=== PATIENT | female | born 1990 | race Caucasian/White ===

== ENCOUNTER 2021-05-18 12:29 | Inpatient (IN) | payer MEDICARE, MEDICAID, SELFPAY ==
[2021-05-18 12:53] VITALS: BP 170/91; BP 178/72; PULSE 110; PULSE 68; RESP 26; TEMP 36.6; O2SAT 98; BMI 23.8
--- NOTE | 2021-05-18 13:04 | ED.PSYCH ---
HPI - Psych General Chief Complaint: Psychiatric Symptoms <Cathy Villagomez NP - Last Filed: 05/18/21 20:21> Stated Complaint: CRISIS,SECTION 12 <Cathy Villagomez NP - Last Filed: 05/18/21 20:21> Time Seen by Provider: 05/18/21 12:37 <Cathy Villagomez NP - Last Filed: 05/18/21 20:21> Source: EMS <Cathy Villagomez NP - Last Filed: 05/18/21 20:21> Mode of arrival: EMS <Cathy Villagomez NP - Last Filed: 05/18/21 20:21> Limitations: no limitations <Cathy Villagomez NP - Last Filed: 05/18/21 20:21> History of Present Illness HPI Narrative: 31 yo female found wandering in [place] hyperverbal, rambling, disorganized. Mobile crisis and BHN on scene. Sent to ED on section 12 for further evaluation. Patient tells me recently discharged from detox for OUD and denies current substance use. No SI/HI. She tells me she hasn't slept since Saturday evening d/t racing thoughts. Tells me she has been taking her medications as prescribed. No physical complaints <Cathy Villagomez NP - Last Filed: 05/18/21 20:21> Related Data Home Medications: Home Medications Medication Instructions Recorded Confirmed gabapentin [Neurontin] 800 mg PO TID 05/18/21 05/18/21 hydroxyzine pamoate 1 cap PO TID PRN 05/18/21 05/18/21 nicotine 21 mg TRANSDERMAL DAILY 05/18/21 05/18/21 phenobarbital 1 tab PO BEDTIME 05/18/21 05/18/21 phenobarbital 32.4 mg PO TID 05/18/21 prazosin 1 cap PO BEDTIME 05/18/21 05/18/21 quetiapine 1 tab PO BEDTIME 05/18/21 05/18/21 quetiapine [Seroquel] 50 mg PO TID PRN 05/18/21 05/18/21 trazodone 1 tab PO BEDTIME 05/18/21 05/18/21 <Cathy Villagomez NP - Last Filed: 05/18/21 20:21> Allergies/Adverse Reactions: Allergies Allergy/AdvReac Type Severity Reaction Status Date / Time No Known Allergies Allergy Unverified 08/18/20 17:31 <Cathy Villagomez NP - Last Filed: 05/18/21 20:21> Review of Systems Review of Systems: Yes Unobtainable due to mental status (but not answering questions, rambling, hyperverbal) <Cathy Villagomez NP - Last Filed: 05/18/21 20:21> [facility] Past Medical History Attestation statement: The following information was validated with the patient. <Cathy Villagomez NP - Last Filed: 05/18/21 20:21> Source: unable to obtain <Cathy Villagomez NP - Last Filed: 05/18/21 20:21> Social History Social History: Social History Patient Tobacco Use Status: Tobacco use Unknown Use of substances other than those prescribed or required for medical reasons: Yes Substance Use Type: Heroin and IV Drugs Last Used Substance: Unknown Any prior treatment program specific to substance use: Yes Advance Directives: Yes Advance Directives Information Provided: Yes Advance Directives on File: No Patient : No (PT STATES POSSIBLE) <Cathy Villagomez NP - Last Filed: 05/18/21 20:21> Physical Exam Vital Signs: Vital Signs: Last Vital Signs Temp 96.8 F 05/19/21 00:12 Pulse 93 05/18/21 23:00 Resp 16 05/19/21 06:00 BP 140/80 H 05/18/21 23:00 Pulse Ox 100 05/18/21 22:59 Body Mass Index 23.8 <Cathy Villagomez NP - Last Filed: 05/18/21 20:21> Vital Signs: Last Vital Signs Temp 96.8 F 05/19/21 00:12 Pulse 93 05/18/21 23:00 Resp 16 05/19/21 06:00 BP 140/80 H 05/18/21 23:00 Pulse Ox 100 05/18/21 22:59 Body Mass Index 23.8 <FARZANA Roman - Last Filed: 05/19/21 08:25> Const: General: anxious <Cathy Villagomez NP - Last Filed: 05/18/21 20:21> Orientation/consciousness: patient oriented x3 <Cathy Villagomez NP - Last Filed: 05/18/21 20:21> Limitations: no limitations <Cathy Villagomez NP - Last Filed: 05/18/21 20:21> HENMT: Head: Yes normal to inspection <Cathy Villagomez NP - Last Filed: 05/18/21 20:21> Ears: hearing grossly normal bilaterally <Cathy Villagomez COMMISSIONS ANALYST - Last Filed: 05/18/21 20:21> General nose exam: Normal external nose present <Cathy Villagomez NP - Last Filed: 05/18/21 20:21> Face and sinus: Yes normal facial exam <Cathy Villagomez NP - Last Filed: 05/18/21 20:21> Mouth: Normal oral and palatal mucosa present <Cathy Villagomez NP - Last Filed: 05/18/21 20:21> Throat: Yes posterior oropharynx normal <Cathy Villagomez NP - Last Filed: 05/18/21 20:21> Eyes: General: appearance normal, both eyes and all related structures <Cathy Villagomez NP - Last Filed: 05/18/21 20:21> Pupils: Equal, round and reactive pupils present <Cathy Villagomez NP - Last Filed: 05/18/21 20:21> Neck: Neck: Yes normal visual inspection <Cathy Villagomez NP - Last Filed: 05/18/21 20:21> Chest: Chest palpation & inspection: normal inspection of the chest <Cathy Villagomez NP - Last Filed: 05/18/21 20:21> Resp: Effort & Inspection: normal respiratory effort <Cathy Villagomez NP - Last Filed: 05/18/21 20:21> Cardio: Peripheral pulses: Peripheral pulses 2+ throughout <Cathy Villagomez NP - Last Filed: 05/18/21 20:21> GI: Inspection: Yes normal to inspection <Cathy Villagomez NP - Last Filed: 05/18/21 20:21> Palpation (GI): Soft to palpation and nontender <Cathy Villagomez NP - Last Filed: 05/18/21 20:21> Auscultation: normal bowel sounds <Cathy Villagomez NP - Last Filed: 05/18/21 20:21> Back/Spine/Pelvis: Thoracic/Lumbar Spine: thoracic and lumbar spine normal to inspection <Cathy Villagomez NP - Last Filed: 05/18/21 20:21> Skin: General skin exam: no rashes or lesions noted <Cathy Villagomez NP - Last Filed: 05/18/21 20:21> Neuro: General: patient oriented x3 and moves all extremities <Cathy Villagomez NP - Last Filed: 05/18/21 20:21> Cranial nerves: Yes Equal, round and reactive pupils present <Cathy Villagomez NP - Last Filed: 05/18/21 20:21> Gait exam (Neuro): Normal gait present <Cathy Villagomez NP - Last Filed: 05/18/21 20:21> Extrem: General: Yes normal to inspection <Cathy Villagomez NP - Last Filed: 05/18/21 20:21> Psych: Other: Rambling, disorganized speech, hyperverbal <Cathy Villagomez NP - Last Filed: 05/18/21 20:21> Appearance: disheveled <Cathy Villagomez NP - Last Filed: 05/18/21 20:21> Speech and movement: Psychomotor agitation in speech present and Restless speech present <Cathy Villagomez NP - Last Filed: 05/18/21 20:21> Affect: Anxious affect present <Cathy Villagomez NP - Last Filed: 05/18/21 20:21> Attitude: Refuses to answer (attititude/behavior) <Cathy Villagomez NP - Last Filed: 05/18/21 20:21> Insight: Limited insight present (Psych) <Cathy Villagomez NP - Last Filed: 05/18/21 20:21> Judgement: Limited judgement present (Psych) <Cathy Villagomez NP - Last Filed: 05/18/21 20:21> Course Course Course Narrative: 31 yo female here after being found outside by PD rambling, hyperverbal with disorganized speech and thoughts. NO physical complaints. Has had difficulty sleeping d/t racing thoughts. No SI. Denies current substance use. +++++anxious, pacing, flight of ideas, hyperverbal. Will need labs, GUTIERREZ. Agreed to take oral ativan/haldol for anxiety/sleep. 1630-At this point patient refusing labs. Nursing will try again shortly. 1830-Spoke to care team. Plan for zully follow-up as patient unable to participate in interview and unable to obtain collateral information. Patient given additional meds to aid in sleep. 2100-Sign out to night team pending above. <Cathy Villagomez NP - Last Filed: 05/18/21 20:21> Physician observation continued. Patient not in any distress. patient will be re-evaluated by N this morning. <FARZANA Roman - Last Filed: 05/19/21 08:25> MDM - Psych Medical Records Attestation: I reviewed the patient's medical records. <Cathy Villagomez NP - Last Filed: 05/18/21 20:21> Lab Data Attestation: I reviewed the patient's lab results. <Cathy Villagomez NP - Last Filed: 05/18/21 20:21> Labs: Lab Results 05/18/21 05/18/21 05/18/21 Range/Units 13:13 13:13 14:57 Urine Test NEGATIVE (NEGATIVE) Urine Opiates Screen Not Detected (Not Detect) Ur Barbiturates Screen POSITIVE H (Not Detect) Ur Phencyclidine Scrn Not Detected (Not Detect) Ur Amphetamines Screen Not Detected (Not Detect) U Benzodiazepines Scrn Not Detected (Not Detect) Urine Cocaine Screen POSITIVE H (Not Detect) U Marijuana (THC) Screen POSITIVE H (Not Detect) COVID-19 (EMMANUEL) Negative (Negative) COVID-19 Clin Com See Note <Cathy Villagomez NP - Last Filed: 05/18/21 20:21> Lab Results 05/18/21 05/18/21 05/18/21 Range/Units 13:13 13:13 14:57 Urine Test NEGATIVE (NEGATIVE) Urine Opiates Screen Not Detected (Not Detect) Ur Barbiturates Screen POSITIVE H (Not Detect) Ur Phencyclidine Scrn Not Detected (Not Detect) Ur Amphetamines Screen Not Detected (Not Detect) U Benzodiazepines Scrn Not Detected (Not Detect) Urine Cocaine Screen POSITIVE H (Not Detect) U Marijuana (THC) Screen POSITIVE H (Not Detect) COVID-19 (EMMANUEL) Negative (Negative) COVID-19 Clin Com See Note <FARZANA Roman - Last Filed: 05/19/21 08:25> Discharge Plan Discharge Clinical Impression: Acute psychosis <Cathy Villagomez NP - Last Filed: 05/18/21 20:21> Prescriptions: No Action phenobarbital 97.2 mg tablet 1 tab PO BEDTIME RF: 0 prazosin 1 mg capsule 1 cap PO BEDTIME RF: 0 hydroxyzine pamoate 50 mg capsule 1 cap PO TID PRN (Reason: Anxiety) RF: 0 quetiapine 100 mg tablet 1 tab PO BEDTIME RF: 0 gabapentin [Neurontin] 800 mg tablet 800 mg PO TID RF: 0 trazodone 100 mg tablet 1 tab PO BEDTIME RF: 0 nicotine 21 mg/24 hr patch 24 hour 21 mg transdermal DAILY RF: 0 phenobarbital 64.8 mg tablet 32.4 mg PO TID RF: 0 quetiapine [Seroquel] 50 mg tablet 50 mg PO TID PRN (Reason: AGITATION) RF: 0 <Cathy Villagomez NP - Last Filed: 05/18/21 20:21>
[2021-05-18] MEDS: LORazepam 1 MG TABLET 2 MG PO (13:18)
[2021-05-18] MEDS: HaloperidoL 5 MG TABLET PO (13:18)
[2021-05-18 13:25] LABS: UPreg QC Valid YES; Urine Pregnancy NEGATIVE (NEGATIVE)
[2021-05-18 13:51] LABS: Amphetamine Screen Urine Not Detected (Not Detect); Barbiturates, Urine POSITIVE (Not Detect); Benzodiazepines Screen Urine Not Detected (Not Detect); Cannabinoid Screen Urine POSITIVE (Not Detect); Cocaine Screen Urine POSITIVE (Not Detect); Opiate Screen Urine Not Detected (Not Detect); Phencyclidine Screen Urine Not Detected (Not Detect)
--- NOTE | 2021-05-18 14:36 | PC.NURSE ---
PT MORE EASILY REDIRECTED AT THIS TIME. COOPERATIVE WITH BLOODDRAW. UPDATED MD GOTTI ON THIS PT. ATTEMPTING TO COMPLETE MED REC. PT STATES SHE HAS NOT PICKED UP MEDICATIONS RECENTLY, CANNOT PROVIDE NAME OF LAST PHARMACY USED. STATES SHE WAS TAKING MEDICATIONS AT [facility] REFERRAL COMPLETED.
--- NOTE | 2021-05-18 15:12 | PC.NURSE ---
PT DIFFICULT STICK. PT BECAME AGGRAVATED WITH MHA. WILL REATTEMPT AT A LATER TIME.
--- NOTE | 2021-05-18 15:27 | PC.NURSE ---
CHILO [phone] NUMBER GIVEN BY PT
[2021-05-18 15:28] LABS: COVID-19 Test Negative (Negative)
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
--- NOTE | 2021-05-18 16:00 | PC.NURSE ---
PT C/O RESTLESS LEGS FROM PO HALDOL. MANAGER ESTATE MADE AWARE, ORDER IN FOR BENADRYL. PT OBSERVED TO BE RESTLESS IN BED.
[2021-05-18] MEDS: diphenhydrAMINE HCL 25 MG TABLET 50 MG PO (16:11)
--- NOTE | 2021-05-18 16:20 | PC.NURSE ---
BIANCA SPOKE WITH PTS SISTER DWIGHT [phone], NO NEW INFORMATION OBTAINED FROM HER. PT SEEN AT [facility] ED AND DC'D ON 05/15 FOR SEIZURE R/T USE OF CRACK TONY. BLANCON TO COMPLETE AN EMERGENCY SERVICES FUP TOMORROW, NO DISPOSITION AT THIS TIME.
--- NOTE | 2021-05-18 17:18 | PC.NURSE ---
BIANCA MADE CONTACT WITH BOYFRIENKuldeep WOO. HE CONFIRMED PHARMACY USED IS [facility] [phone] . SHE WAS RECENTLY AT [facility] DETOX [phone], LEFT ON 05/15. PER BIANCA, PT NOW INPT BEDSEARCH. DYSTONIC MOVEMENT SOMEWHAT CALMED SINCE BENDRYL ADMIN, PT REMAINS FRUSTRATED & DEMANDING.
[2021-05-18] MEDS: OLANZapine 10 MG TABLET PO (18:13)
[2021-05-18 18:25] VITALS: RESP 18
--- NOTE | 2021-05-18 21:54 | HE.PHANOTE ---
Pharmacy Consult ? Medication Reconciliation Pharmacy has completed the medication reconciliation , unable to confirm phenobarb dose, am pharmacist will confirm Yelena Nuno PharmD
[2021-05-18] MEDS: Melatonin 3 MG TABLET 6 MG PO (22:44)
[2021-05-18] MEDS: hydrOXYzine HCL 50 MG TABLET PO (22:44)
[2021-05-18] MEDS: QUEtiapine Fumarate 50 MG TABLET 150 MG PO (22:45)
--- NOTE | 2021-05-18 22:48 | PC.NURSE ---
pt was screaming out foul lang to staff, throwing her water pitcher out of her room, pt seeking her medications. pharmacy was entering her medications and provider made aware and stat po meds given. pt pleased, door closed, light turned down to off. evening snack given. pt more cooperative at this time and took her meds with no difficulty.
[2021-05-18] MEDS: Gabapentin 400 MG CAPSULE 800 MG PO (22:56)
[2021-05-18] MEDS: traZODone HCL 100 MG TABLET PO (22:56)
[2021-05-18 22:59] VITALS: BP 140/80; PULSE 93; RESP 18; O2SAT 100
[2021-05-18 23:00] VITALS: BP 140/80; PULSE 93
[2021-05-19] VITALS (10 sets, daily range): BP systolic 116–135; BP diastolic 65–74; PULSE 80–95; RESP 16–18; TEMP 36–37.1
--- NOTE | 2021-05-19 | ECG_ITS ---
Test Reason : MEDICAL CLEARANCE Blood Pressure : / mmHG Vent. Rate : 084 BPM Atrial Rate : 084 BPM P-R Int : 136 ms QRS Dur : 084 ms QT Int : 360 ms P-R-T Axes : 077 067 046 degrees QTc Int : 425 ms Normal sinus rhythm with sinus arrhythmia Normal ECG When compared with ECG of 15-JUN-2013 22:46, No significant change was found Referred By: Norman Hernández Electronically Signed By:HEIDY FONTANA
[2021-05-19] MEDS: LORazepam 2 MG/ML VIAL IM (00:10)
[2021-05-19] MEDS: OLANZapine 10 MG VIAL IM (00:10)
--- NOTE | 2021-05-19 00:30 | PC.NURSE ---
05/18/212229 pt anxiouse, shouting out for more medications to help her to sleep. pt medication list completed and provider made aware and medications ordered and given at pt request. pt has been given multiple sandwhichs, peanut butter and crackers and water. warm milk offered and refused. pt given a warm blanket to help her to fall asleep, pt state she has not slept in days. plan is to have bhn follow up in the morning. pt has been made aware of this.
--- NOTE | 2021-05-19 00:34 | PC.NURSE ---
pt is tossing and turning in the bed having a difficult time falling asleep, pt visable on the monitor, pt appears to be having withdrawls from cocaine. pt states she only used one time after coming out of rehab on saturday, pt states she used on saturday only. pt's leg very restless and pt is turning in bed very frequently.
--- NOTE | 2021-05-19 00:51 | PC.NURSE ---
pt undressed and refusing to wear her hospital gown at this time. pt instructed to keep her gown on and pt layed down under her blanket. pt is fighting the ability to sleep, pt getting drowsy then abruptly wide awake shaking her legs.
--- NOTE | 2021-05-19 01:01 | PC.NURSE ---
pt offered the floor mat and accepted. pt is unable to sleep in the bed due to restless legs. pt having visual halluncinations, pointing to things not in the room and grabbing at the air. pillow wedge given to help with the legs while on the floor mat.
--- NOTE | 2021-05-19 02:47 | PC.NURSE ---
pt legs are quieting down and pt has fallen asleep at this time.
--- NOTE | 2021-05-19 04:44 | PC.NURSE ---
weighted blanket placed on pt. pt has increase in periods of sleeping and her legs have decreased restlessness.
--- NOTE | 2021-05-19 07:02 | PC.NURSE ---
pateitn appears to rest with even unlabord breaths, patientnappears in no distress at present
[2021-05-19] MEDS: LORazepam 1 MG TABLET PO (15:58)
[2021-05-19] MEDS: Prazosin HCL 1 MG CAPSULE PO (20:14)
[2021-05-19] MEDS: PHENobarbitaL 30 MG TABLET 60 MG PO (20:15)
[2021-05-19] MEDS: QUEtiapine Fumarate 100 MG TABLET PO (20:21)
[2021-05-19] MEDS: traZODone HCL 100 MG TABLET PO (20:21)
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
--- NOTE | 2021-05-20 07:42 | PC.NURSE ---
pt signed 3 day notice on 05/19/21. up on weed 05/24/21
[2021-05-20] MEDS: LORazepam 1 MG TABLET PO ×3 (09:01→17:24)
--- NOTE | 2021-05-20 10:09 | HO.PSYADMNOT ---
HPI Chief Complaint: psychosis Sources of Information: patient interviewed, chart reviewed and crisis/core team assessment reviewed Additional Sources of Information: nursing reports HPI Subjective Notes: Conditional Voluntary and 3 Day Healthcare Proxy: No Guardianship: No Medical Problems Affecting Mental Status: No Narrative: Pt wanting to leave, just got out of [facility] in [place]- doesn't even know why she is here- says people rated her out After dc from [facility] she went and used for 4 days- says she filled her dc medications and the people might have them denies hx of Suicide attempts Past Psychiatric History: hx substance abuse- recent use was crack cocaine as that was what they had [facility] for psych admit dced 05/15/21 Medical Evaluation Reviewed: Yes agitated psychosis on presentation to [facility] Narrative: Hx Epilepsy on phenobarb being tapered back up to dose of 90? Narrative: REports She does have outpatient care in [place] dr Christian thru [facility] Family History: pt unwilling to engage in this Social History: living with one boyfriend or another, kalpana Baker, prior to that [place] Norbert Quan [phone]- would like to go back there- Her mother has custody of her children Substance History: hx of opiates in past, cocaine, Trauma History: not reviewed today pt was minimally engaged wanting to just talk about leaving Diagnostics Vital Signs (24Hr): Vital Signs - 24 hr 05/19/21 16:10 05/19/21 19:50 05/19/21 20:14 Temperature 98.7 F 98 F Pulse Rate 80 95 95 Blood Pressure 135/74 116/65 116/65 Body Mass Index 23.8 Labs Labs: Laboratory Results - last 48 hr 05/18/21 05/18/21 05/18/21 13:13 13:13 14:57 Urine Test NEGATIVE Urine Opiates Screen Not Detected Ur Barbiturates Screen POSITIVE H Ur Phencyclidine Scrn Not Detected Ur Amphetamines Screen Not Detected U Benzodiazepines Scrn Not Detected Urine Cocaine Screen POSITIVE H U Marijuana (THC) Screen POSITIVE H COVID-19 (EMMANUEL) Negative COVID-19 Clin Com See Note Meds/Allergies Meds Home Medications Acetaminophen (Acetaminophen 325 Mg Tablet) 650 mg PO Q6H PRN PRN Reason: Headache/Pain Mild Scale (1-3) Al Hydroxide/Mg Hydroxide (Magnesium Hydrox/Alum Hydrox 30 Ml Oral.Susp) 30 ml PO Q6H PRN PRN Reason: Heartburn/Nausea Gabapentin (Gabapentin 400 Mg Capsule) 400 mg PO TID MURRAY Hydrocortisone (Hydrocortisone 1 % Cream 28.35 Gm Tube) 1 appl TOPICAL BID PRN; Protocol PRN Reason: itching Hydroxyzine HCl (Hydroxyzine Hcl 50 Mg Tablet) 50 mg PO TID PRN PRN Reason: Anxiety Magnesium Hydroxide (Milk Of Magnesia 30 Ml Oral.Susp) 30 ml PO DAILY PRN PRN Reason: Constipation Nicotine (Nicotine 21 Mg Patch.Td24) 21 mg TRANSDERMA DAILY MURRAY Last Admin: 05/20/21 13:50 Dose: 21 mg Documented by: Phenobarbital (Phenobarbital 30 Mg Tablet) 60 mg PO BEDTIME MURRAY Stop: 05/26/21 09:00 Last Admin: 05/19/21 20:15 Dose: 60 mg Documented by: Prazosin HCl (Prazosin Hcl 1 Mg Capsule) 1 mg PO BEDTIME MURRAY; Protocol Last Admin: 05/19/21 20:14 Dose: 1 mg Documented by: Quetiapine Fumarate (Quetiapine Fumarate 50 Mg Tablet) 50 mg PO TID PRN PRN Reason: AGITATION Last Admin: 05/20/21 13:49 Dose: 50 mg Documented by: Quetiapine Fumarate (Quetiapine Fumarate 100 Mg Tablet) 100 mg PO BEDTIME MURRAY Trazodone HCl (Trazodone Hcl 100 Mg Tablet) 100 mg PO BEDTIME PRN PRN Reason: insomnia Last Admin: 05/19/21 20:21 Dose: 100 mg Documented by: Allergies Allergies Allergy/AdvReac Type Severity Reaction Status Date / Time No Known Allergies Allergy Unverified 08/18/20 17:31 Mental Status Exam Mental Status Exam Narrative: Annoyed and irritated , restless Patient Appearance: Appropriate Patient Orientation: Person, Place and Situation Level of Consciousness: Awake and Restless Patient Behavior: Talkative and Resistive to Care Mood Description: Suspicious and Angry Affect Description: Labile Patient Cognition Impaired: No Ability to Follow Directions: Fair Speech Pattern: Clear Hallucinations: None Thought Process: Distracted Thought Content: positive for Racing and positive for Disorganized Depressive Symptoms: Insomnia and Increased Irritability Abnormal Motor Activity Signs and Symptoms: Hyperactivity Judgement: Poor Assessment & Plan Patient educated on: medication risk/benefits and substance abuse Informed Consent: further education needed Reason for continued inpatient stay Substantial Risk for: inability to function and rapid decompensation
[2021-05-20] MEDS: Gabapentin 400 MG CAPSULE 800 MG PO (13:49)
[2021-05-20] MEDS: QUEtiapine Fumarate 50 MG TABLET PO (13:49)
[2021-05-20] MEDS: Nicotine 21 MG PATCH.TD24 TRANSDERMA (13:50)
[2021-05-20 18:00] VITALS: BP 150/80; PULSE 99
[2021-05-20 18:30] VITALS: BP 143/82; PULSE 118; RESP 14
--- NOTE | 2021-05-20 19:03 | PC.NURSE ---
At approximately 0630 this marketing copywriter was called to the pt kitchen as pt was thought to be vomiting in the sink. This marketing copywriter noted pt to appear overly sedated and when questioned if her recent visitor had given her something, pt replied, yes, he gave ma a little strip of Suboxone, that's all . Pt's V/S'S 143/82, HR 118 and SAT's 95%. Pt assisted to her room, staff remained with her and this marketing copywriter spoke with MD podiatric surgeon Dr Fadumo Parks to inform her of incident.
[2021-05-20 20:56] VITALS: BP 138/71; PULSE 110
[2021-05-20] MEDS: Prazosin HCL 1 MG CAPSULE PO (20:56)
[2021-05-20] MEDS: QUEtiapine Fumarate 100 MG TABLET PO (20:58)
[2021-05-20] MEDS: PHENobarbitaL 30 MG TABLET 60 MG PO (21:14)
--- NOTE | 2021-05-21 00:01 | PC.NURSE ---
Patient was noted to be sedated around 1830 and was starting to nod off in the kitchen. She suddenly got up and went to the kitchen sink area and started gagging a bit. Patient c/o nausea and fatigue. Vital signs were taken and were within normal limits. Another nurse found out the patient had been given a small amount of Suboxone by her ex-boyfriend who came to visit. Dr. Rutherford was notified and patient was monitored for 2 hours. She was crying and yelling that she was being treated unfairly because she was not allowed to eat or drink until it was clear that she was not a choking risk. Patient was allowed to eat some pudding after one hour and was able to tolerate. She was then allowed to eat her dinner. No choking noted. Patient still reported I'm tired but I want to take a shower. Patient was able to shower and put on clean clothes. She took her HS meds. Dr. Rutherford wanted Trazadone held, both the scheduled and prn. Patient asleep at shift change. Stable. She apologized for her outburst.
[2021-05-21] MEDS: QUEtiapine Fumarate 50 MG TABLET PO (01:49)
--- NOTE | 2021-05-21 10:50 | PM.PSYDC ---
DS: Providers Provider Date of Service: 05/21/21 Date of admission: 05/19/21 14:11 Primary care physician: Unknown Physician DS: Diagnosis Discharge Diagnosis (1) Cocaine abuse with cocaine-induced psychotic disorder: Status: Acute Problem details: also hx seizures s/p dc [facility] started using crack x 4 days presented psychotic to er from this came down- was irritable but not psychotic- then had bf bring her suboxone on unit- which she used denies opiate addiction just addict DS: Medications Discharge Medications Home Medications: Home Medications Medication Instructions Recorded Confirmed gabapentin [Neurontin] 800 mg PO TID 05/18/21 05/18/21 hydroxyzine pamoate 1 cap PO TID PRN 05/18/21 05/18/21 nicotine 21 mg TRANSDERMAL DAILY 05/18/21 05/18/21 phenobarbital 1 tab PO BEDTIME 05/18/21 05/18/21 phenobarbital 64.8 mg PO BEDTIME 05/18/21 05/19/21 prazosin 1 cap PO BEDTIME 05/18/21 05/18/21 quetiapine 1 tab PO BEDTIME 05/18/21 05/18/21 quetiapine [Seroquel] 50 mg PO TID PRN 05/18/21 05/18/21 trazodone 1 tab PO BEDTIME 05/18/21 05/18/21 pt was not given medications has she says she has them from [facility] and she can get them from her friend Discharge Plan Discharge Anticipated Discharge Date/Time: 05/21/21 11:00 Patient Disposition: Home, Self-Care Discharge Diagnosis: cocaine induced psychosis Referrals: Physician,Unknown [Primary Care Provider] - 1 Week Discharge Medications: Continued phenobarbital 97.2 mg tablet 1 tab PO BEDTIME RF: 0 prazosin 1 mg capsule 1 cap PO BEDTIME RF: 0 hydroxyzine pamoate 50 mg capsule 1 cap PO TID PRN (Reason: Anxiety) RF: 0 quetiapine 100 mg tablet 1 tab PO BEDTIME RF: 0 gabapentin [Neurontin] 800 mg tablet 800 mg PO TID RF: 0 trazodone 100 mg tablet 1 tab PO BEDTIME RF: 0 nicotine 21 mg/24 hr patch 24 hour 21 mg transdermal DAILY RF: 0 phenobarbital 64.8 mg tablet 64.8 mg PO BEDTIME RF: 0 quetiapine [Seroquel] 50 mg tablet 50 mg PO TID PRN (Reason: AGITATION) RF: 0 Discharge Orders: Discharge Order (Routine); Ordered 05/21/21 Ordered By: Adali Parks Diet: regular diet Activity on Discharge: As tolerated Stand Alone Forms: Patient Portal Discharge page, Community Support Care Plan Goals: return to providers she says she has Health Concerns: continued risk of drug use, stongly urge detox or CSS setting not psych Plan of Treatment: recommend [facility] Assessment: Pt was non compliant with treatment, had bf bring in suboxone she used on unit - pt was monitored for safety over night- refusing meds today Patient Instructions: Cocaine Abuse (DC) Discharge Date/Time: 05/21/21 11:00 Mental Status Exam Mental Status Exam Patient Appearance: Appropriate Patient Orientation: Person, Place, Time and Situation Level of Consciousness: Awake Patient Behavior: Hyperactive and Good Eye Contact Mood Description: Anxious (to be dced) Affect Description: Calm (happy to be dced) Patient Cognition Impaired: No Ability to Follow Directions: Fair Speech Pattern: Clear Hallucinations: None Delusions: Not Present Thought Process: Intact Thought Content: positive for Intact and positive for Perseveration (for dc) Judgement: Fair Data Data Completed and Pending Completed studies during hospitalization [Text1]: 05/18/21 05/18/21 05/18/21 13:13 13:13 14:57 Urine Test NEGATIVE Urine Opiates Screen Not Detected Ur Barbiturates Screen POSITIVE H Ur Phencyclidine Scrn Not Detected Ur Amphetamines Screen Not Detected U Benzodiazepines Scrn Not Detected Urine Cocaine Screen POSITIVE H U Marijuana (THC) Screen POSITIVE H COVID-19 ([facility]) Negative COVID-19 Clin Com See Note DS: Summary Time Spent with Patient Time attestation: Total time spent providing and/or coordinating discharge services: 30 minutes
== END 2021-05-21 11:00 | disposition home or self-care (01) | DRG 897 ==
LOC: HO.ED 15:01 → HO.PM5 05-19 14:15
PROVIDERS: Nurse Practitioner Family; Admitting Provider Psychiatry & Neurology Psychiatry; Emergency Provider Emergency Medicine; Visit Provider Psychiatry & Neurology Psychiatry
DX: F14.159 Cocaine abuse with cocaine-induced psychotic disorder, unspecified (principal); Z20.822 Contact with and (suspected) exposure to COVID-19; G40.909 Epilepsy, unspecified, not intractable, without status epilepticus; F17.210 Nicotine dependence, cigarettes, uncomplicated; Z71.6 Tobacco abuse counseling; Z79.899 Other long term (current) drug therapy
CPT/HCPCS: 36415; 80307; 81025; 87635; 93005; 99285; J2060; Q0163

== ENCOUNTER 2022-03-26 16:49 | Emergency (ER) | payer MEDICARE, MEDICAID, SELFPAY ==
[2022-03-26 16:53] VITALS: BP 151/91; PULSE 120; RESP 19; TEMP 38; O2SAT 98; BMI 30.7
== END 2022-03-26 18:06 | disposition left against medical advice (07) ==
LOC: HO.ED 17:51
PROVIDERS: Emergency Provider Emergency Medicine
DX: B37.0 Candidal stomatitis (principal)
CPT/HCPCS: 99281; 99282

== ENCOUNTER 2022-04-22 16:20 | Emergency (ER) | payer MEDICARE, MEDICAID, SELFPAY ==
--- NOTE | 2022-04-22 16:27 | ED.SEIZURE ---
HPI - Seizure General Chief Complaint: Seizure Stated Complaint: ? seizure Time Seen by Provider: 04/22/22 16:27 Source: patient Mode of arrival: EMS Limitations: no limitations History of Present Illness HPI Narrative: Patient history of seizures anxiety cocaine abuse and cocaine induced psychotic disorder ran out of her medications about 3 weeks ago and having seizures almost every week today prior to arrival she had a similar episode seizures witnessed by her boyfriend lasted for few minutes feeling sleepy and was postictal. No injuries no time was Related Data Home Medications Medication Instructions Recorded Confirmed gabapentin 800 mg tablet 800 mg PO TID 05/18/21 05/18/21 (Neurontin) hydroxyzine pamoate 50 mg capsule 1 cap PO TID PRN 05/18/21 05/18/21 nicotine 21 mg/24 hr daily 21 mg TRANSDERMAL DAILY 05/18/21 05/18/21 transdermal patch phenobarbital 64.8 mg tablet 64.8 mg PO BEDTIME 05/18/21 05/19/21 phenobarbital 97.2 mg tablet 1 tab PO BEDTIME 05/18/21 05/18/21 prazosin 1 mg capsule 1 cap PO BEDTIME 05/18/21 05/18/21 quetiapine 100 mg tablet 1 tab PO BEDTIME 05/18/21 05/18/21 quetiapine 50 mg tablet (Seroquel) 50 mg PO TID PRN 05/18/21 05/18/21 trazodone 100 mg tablet 1 tab PO BEDTIME 05/18/21 05/18/21 Previous Rx's Medication Instructions Recorded gabapentin 800 mg tablet 800 mg PO TID #90 tab 04/22/22 phenobarbital 97.2 mg tablet 97.2 mg PO BEDTIME #30 tab 04/22/22 prazosin 1 mg capsule 1 mg PO BEDTIME #30 cap 04/22/22 quetiapine 100 mg tablet (Seroquel) 100 mg PO BEDTIME #30 tab 04/22/22 quetiapine 50 mg tablet (Seroquel) 50 mg PO TID PRN #90 tab 04/22/22 trazodone 100 mg tablet 100 mg PO BEDTIME #30 tab 04/22/22 Allergies Allergy/AdvReac Type Severity Reaction Status Date / Time No Known Allergies Allergy Verified 04/22/22 16:29 Review of Systems Review of Systems: Yes all other systems are reviewed and are negative PMFSH Past Medical History Medical History Drug abuse Seizure Social History Social History Household Members: None Housing: Other Housing Other:: presently homeless Do you presently have visiting nurse or other home services: No Patient Tobacco Use Status: Current everyday Tobacco user Tobacco use type: Cigarette Cigarette Packs Per Day: 0.5 Cigarettes Per Day: 10.0 Years Smoked: 15 Second Hand Smoke Exposure: Yes Use of substances other than those prescribed or required for medical reasons: Yes Substance Use Type: Heroin and IV Drugs Substance Use Frequency: Daily Last Used Substance: Hours (ago) Advance Directives: No Advance Directives Information Provided: Yes service: No Sexual orientation: Decline to Answer Physical Exam Vital Signs: Vital Signs: Last Vital Signs Temp 98.7 F 04/22/22 16:29 Pulse 72 04/22/22 16:29 Resp 16 04/22/22 16:29 BP 101/56 L 04/22/22 16:29 Pulse Ox 100 04/22/22 16:29 BMI result Body Mass Index 31.1 Appearance: Alert. Oriented X3. No acute distress. Eyes: PERRLA, No Nystagmus ENT: Pharynx normal. Oral Mucosa moist no tongue bite Neck: Normal inspection. Neck supple. CVS: Normal heart rate and rhythm. Pulses normal. Respiratory: No respiratory distress. Equal air entry bilateral, no wheezing/rales/rhonchi Abdomen: Soft and nontender. Bowel sounds are present, no mass palpable, no CVA tenderness Skin: Skin warm and dry. Normal skin color. Normal skin turgor. Extremities: No lower extremity edema. No calf tenderness IVDA track armenta++ Neuro: Oriented X 3. No motor deficit. No sensory deficit.No cerebellar signs , cranial nerves II-XII intact MDM - Seizure MDM Narrative Medical decision making narrative: Patient history of epilepsy in substance abuse missed her medications for last few weeks having seizures patient medication were refilled and phenobarbital was given in the ER Lab Data Attestation: I reviewed the patient's lab results. Result diagrams: 04/22/22 17:53 04/22/22 17:53 Labs: Lab Results 04/22/22 04/22/22 Range/Units 17:53 17:53 WBC 6.2 (4.8-10.8) X10*3/uL RBC 4.82 (4.20-5.50) X10*6/uL Hgb 13.0 (12.0-16.0) g/dl Hct 40.4 (37.0-47.0) % MCV 83.8 (80.0-98.0) fL MCH 27.0 (27.0-33.0) pg MCHC 32.2 (31.0-35.0) g/dl RDW 13.7 (11.0-16.0) % Plt Count 241 (160-400) X10*3/uL MPV 10.2 (9.4-12.3) fL Immature Gran % (Auto) 0.2 (0.0-0.4) % Neut % (Auto) 36.5 L (45-73) % Lymph % (Auto) 50.9 H (20-40) % [place] % (Auto) 10.3 (2-11) % Eos % (Auto) 2.1 (0-4) % Baso % (Auto) 0.0 (0-2) % Lymph # (Auto) 3.2 (1.2-4.9) X10*3/uL [place] # (Auto) 0.6 (0.1-1.2) X10*3/uL Eos # (Auto) 0.1 (0.0-0.4) X10*3/uL Baso # (Auto) 0.0 (0.0-0.2) X10*3/uL Abs Immat Gran (auto) 0.01 (0.00-0.03) X10*3/uL Absolute Neuts (auto) 2.3 (2.0-8.3) x10*3/uL Absolute Nucleated RBC 0.000 (0.0-0.012) X10*3/uL Nucleated RBC % (auto) 0.0 (0.0-0.2) /100WBC Sodium 140 (135-145) mmol/L Potassium 4.0 (3.3-5.1) mmol/L Chloride 108 (96-108) mmol/L Carbon Dioxide 25 (22-29) mmol/L Anion Gap 11 L (12-20) BUN 11 (9-16) mg/dL Creatinine 0.77 (0.5-1.4) mg/dL Estim Creat Clear Calc 99.9 Estimated GFR > 60 Random Glucose 99 (60-115) mg/dL Calcium 9.0 (8.4-10.2) mg/dL Total Bilirubin 0.6 (0.0-1.0) mg/dL AST 27 (5-31) U/L ALT 27 (0-31) U/L Alkaline Phosphatase 72 (39-117) U/L Total Protein 7.3 (6.5-8.0) g/dL Albumin 3.6 (3.5-5.0) g/dL Phenobarbital < 1.1 L (10.0-40.0) mcg/mL Discharge Plan Discharge Clinical Impression: Cocaine abuse with cocaine-induced psychotic disorder, Epileptic seizure Patient Disposition: Home, Self-Care Instructions: Epilepsy (ED), Polysubstance Abuse (ED) Additional Instructions: Taking medication for epilepsy as prescribed along with other medication. Stop using cocaine and heroin Follow-up with detox Prescriptions: New phenobarbital 97.2 mg tablet 97.2 mg PO BEDTIME Qty: 30 0RF gabapentin 800 mg tablet 800 mg PO TID Qty: 90 0RF trazodone 100 mg tablet 100 mg PO BEDTIME Qty: 30 0RF quetiapine [Seroquel] 100 mg tablet 100 mg PO BEDTIME Qty: 30 0RF prazosin 1 mg capsule 1 mg PO BEDTIME Qty: 30 0RF quetiapine [Seroquel] 50 mg tablet 50 mg PO TID PRN (Reason: anxiety) Qty: 90 0RF No Action phenobarbital 97.2 mg tablet 1 tab PO BEDTIME 0RF Rx Instructions: PATIENT IS TAPERING UP TO THIS DOSE, TO BEGIN ON 05/26/21 prazosin 1 mg capsule 1 cap PO BEDTIME 0RF hydroxyzine pamoate 50 mg capsule 1 cap PO TID PRN (Reason: Anxiety) 0RF quetiapine 100 mg tablet 1 tab PO BEDTIME 0RF gabapentin [Neurontin] 800 mg tablet 800 mg PO TID 0RF trazodone 100 mg tablet 1 tab PO BEDTIME 0RF nicotine 21 mg/24 hr patch 24 hour 21 mg transdermal DAILY 0RF phenobarbital 64.8 mg tablet 64.8 mg PO BEDTIME 0RF Rx Instructions: PATIENT IS TAPERING UP. SUPPOSED TO TAKE 64.8 MG UNTIL 05/26, THEN INCREASE TO 97.2 MG quetiapine [Seroquel] 50 mg tablet 50 mg PO TID PRN (Reason: AGITATION) 0RF Interventions: ED Discharge Assessment Last Done: 04/22/22 19:20 Discharge Date/Time: 04/22/22 19:21
[2022-04-22 16:29] VITALS: BP 101/56; BP 118/68; PULSE 72; PULSE 84; RESP 16; TEMP 37.1; O2SAT 100; O2SAT 99; BMI 31.1
--- NOTE | 2022-04-22 17:11 | MHC.RECOVSUP ---
Recovery Support note: Patient is a 31 year old Luxembourger speaking female who presented to [facility] ED due to a seizure. During triage, patient reported IV heroin use. This report writer met with patient to discuss substance use and treatment options. Patient reports she has been on methadone and Suboxone in the past and did really well on methadone. Patient reports she was sober for two years starting when she was . Patient plans to go to [facility] on to restart methadone. Information regarding this clinic provided to patient. Discussed ATS with patient and she declines at this time. Patient is also not interested in meeting with a rn recovery. Discussed case with patient's ED physician.
[2022-04-22 18:00] LABS: MANUAL DIFF FLAG NO
[2022-04-22 18:01] LABS: Eosinophils Absolute Auto 0.1 X10*3/uL (0.0-0.4); Eosinophils Percent Auto 2.1 % (0-4); Hematocrit 40.4 % (37.0-47.0); Imm Gran Abs Auto 0.01 X10*3/uL (0.00-0.03); Imm Gran Pct Auto 0.2 % (0.0-0.4); Lymphocytes Absolute Auto 3.2 X10*3/uL (1.2-4.9); Lymphocytes Percent Auto 50.9 % (20-40); Mean Corpuscular HGB Conc 32.2 g/dl (31.0-35.0); Mean Corpuscular Volume 83.8 fL (80.0-98.0); Mean Platelet Volume 10.2 fL (9.4-12.3); Monocytes Absolute Auto 0.6 X10*3/uL (0.1-1.2); Monocytes Percent Auto 10.3 % (2-11); Neutrophils Absolute Auto 2.3 x10*3/uL (2.0-8.3); Neutrophils Percent Auto 36.5 % (45-73); Platelet Count 241 X10*3/uL (160-400); Red Blood Count 4.82 X10*6/uL (4.20-5.50); Red Cell Distribution Width 13.7 % (11.0-16.0); White Blood Count 6.2 X10*3/uL (4.8-10.8)
[2022-04-22 18:18] LABS: Alanine Aminotransferase 27 U/L (0-31); Albumin Level 3.6 g/dL (3.5-5.0); Alkaline Phosphatase 72 U/L (39-117); Anion Gap 11 (12-20); Aspartate Amino Transferase 27 U/L (5-31); Bilirubin Total 0.6 mg/dL (0.0-1.0); Blood Urea Nitrogen 11 mg/dL (9-16); Carbon Dioxide 25 mmol/L (22-29); Chloride 108 mmol/L (96-108); Creatinine Clr Calc Pharmacy 99.9; Estimated Glomerular Filt Rate > 60; Glucose Random 99 mg/dL (60-115); Sodium 140 mmol/L (135-145); Total Protein 7.3 g/dL (6.5-8.0)
== END 2022-04-22 19:21 | disposition home or self-care (01) ==
PROVIDERS: Emergency Provider Internal Medicine
DX: G40.909 Epilepsy, unspecified, not intractable, without status epilepticus (principal); F14.159 Cocaine abuse with cocaine-induced psychotic disorder, unspecified; Z91.14 Patient's other noncompliance with medication regimen
CPT/HCPCS: 36415; 80053; 80184; 85025; 99283

== ENCOUNTER 2022-06-14 18:34 | Emergency (ER) | payer MEDICARE, MEDICAID, SELFPAY ==
--- NOTE | 2022-06-14 18:51 | ECG_ITS ---
Test Reason : dizziness Blood Pressure : / mmHG Vent. Rate : 072 BPM Atrial Rate : 072 BPM P-R Int : 146 ms QRS Dur : 084 ms QT Int : 388 ms P-R-T Axes : 043 058 036 degrees QTc Int : 424 ms Normal sinus rhythm with sinus arrhythmia Low voltage QRS Borderline ECG When compared with ECG of 19-MAY-2021 09:16, No significant change was found Referred By: Generic ED Physician Electronically Signed By:MARCEL RODRIGUEZ MD
[2022-06-14 18:52] VITALS: BP 106/65; BP 120/80; PULSE 68; PULSE 72; RESP 18; TEMP 37; O2SAT 97; O2SAT 98; BMI 32.8
[2022-06-14 19:16] LABS: Hematocrit 37.9 % (37.0-47.0); Hemoglobin 12.1 g/dl (12.0-16.0); Mean Corpuscular HGB Conc 31.9 g/dl (31.0-35.0); Mean Corpuscular Hemoglobin 26.9 pg (27.0-33.0); Mean Corpuscular Volume 84.2 fL (80.0-98.0); Mean Platelet Volume 11.7 fL (9.4-12.3); Platelet Count 215 X10*3/uL (160-400); Red Cell Distribution Width 14.4 % (11.0-16.0); White Blood Count 8.4 X10*3/uL (4.8-10.8)
[2022-06-14 19:30] LABS: Anion Gap 17 (12-20); Blood Urea Nitrogen 12 mg/dL (9-16); Calcium 8.5 mg/dL (8.4-10.2); Carbon Dioxide 19 mmol/L (22-29); Chloride 105 mmol/L (96-108); Estimated Glomerular Filt Rate > 60; Glucose Random 76 mg/dL (60-115); Potassium 4.6 mmol/L (3.3-5.1); Sodium 136 mmol/L (135-145)
[2022-06-14 19:37] LABS: Troponin-I High Sensitivity < 3.5 ng/L (<3.5-17.0)
== END 2022-06-14 21:03 | disposition left against medical advice (07) ==
PROVIDERS: Emergency Provider Emergency Medicine
DX: R42 Dizziness and giddiness (principal); F11.10 Opioid abuse, uncomplicated; Z79.899 Other long term (current) drug therapy
CPT/HCPCS: 36415; 80048; 84484; 85027; 93005; 99283

== ENCOUNTER 2022-06-21 01:52 | Inpatient (IN) | payer MEDICARE, MEDICAID, SELFPAY ==
[2022-06-21 01:57] VITALS: BP 129/75; PULSE 74; RESP 18; TEMP 36.6; O2SAT 98; BMI 32.9
--- NOTE | 2022-06-21 02:00 | PC.NURSE ---
Pt is able to contract for safety to remain in waiting room at this time until bed availablity.
--- NOTE | 2022-06-21 03:15 | ED.PSYCH ---
HPI - Psych General Chief Complaint: Psychiatric Symptoms Stated Complaint: SI Time Seen by Provider: 06/21/22 03:12 Source: patient Mode of arrival: ambulatory Limitations: no limitations History of Present Illness HPI Narrative: Patient comes to the emergency room complaining of suicidal ideation. Patient states ?I am done with the? patient states that she does not have the strength to keep going on. Patient states she used Seroquel prior to arrival and feels very sleepy. Patient denies trying injuring herself prior to arrival although she does have suicidal ideation. Patient denies homicidal ideation Related Data Home Medications Medication Instructions Recorded Confirmed gabapentin 800 mg tablet 800 mg PO TID anxiety 05/18/21 05/18/21 (Neurontin) hydroxyzine pamoate 50 mg capsule 1 cap PO TID PRN Anxiety 05/18/21 05/18/21 nicotine 21 mg/24 hr daily 21 mg transdermal DAILY 05/18/21 05/18/21 transdermal patch phenobarbital 64.8 mg tablet 64.8 mg PO BEDTIME 05/18/21 05/19/21 phenobarbital 97.2 mg tablet 1 tab PO BEDTIME 05/18/21 05/18/21 prazosin 1 mg capsule 1 cap PO BEDTIME 05/18/21 05/18/21 quetiapine 100 mg tablet 1 tab PO BEDTIME 05/18/21 05/18/21 quetiapine 50 mg tablet (Seroquel) 50 mg PO TID PRN AGITATION 05/18/21 05/18/21 trazodone 100 mg tablet 1 tab PO BEDTIME 05/18/21 05/18/21 Previous Rx's Medication Instructions Recorded gabapentin 800 mg tablet 800 mg PO TID #90 tabs 04/22/22 phenobarbital 97.2 mg tablet 97.2 mg PO BEDTIME #30 tabs 04/22/22 prazosin 1 mg capsule 1 mg PO BEDTIME #30 caps 04/22/22 quetiapine 100 mg tablet (Seroquel) 100 mg PO BEDTIME #30 tabs 04/22/22 quetiapine 50 mg tablet (Seroquel) 50 mg PO TID PRN anxiety #90 tabs 04/22/22 trazodone 100 mg tablet 100 mg PO BEDTIME #30 tabs 04/22/22 Allergies Allergy/AdvReac Type Severity Reaction Status Date / Time No Known Allergies Allergy Verified 04/22/22 16:29 Review of Systems Review of Systems: Constitutional : No Weight loss, No Fever, No Chills, No Night Sweats, No Fatigue, No Malaise ENT/Mouth : No Hearing loss, No Ear Pain, No Nasal Congestion, No Sinus Pain, No Hoarseness, No sore throat, No Rhinorrhea, No Swallowing Difficulty Eyes: No Eye Pain, No Swelling, No Redness, No Foreign Body, No Discharge, No Vision Changes Cardiovascular : No Chest Pain, No SOB, No Dyspnea on Exertion, No Orthopnea, No Edema, No Palpitations Respiratory : No Cough, No Sputum, No Wheezing, No Smoke Exposure, No Dyspnea Gastrointestinal : No Nausea, No Vomiting, No Diarrhea, No Constipation, No abdominal Pain, No Hematochezia, No Melena Genitourinary : no irregular bleeding, No Dysuria, No Urinary Frequency, No Hematuria, No Urinary Incontinence, No Urgency, No Flank Pain, No Urinary Flow Changes, No Hesitancy Musculoskeletal : No joint pain, No Myalgias, No Joint Swelling Skin : No Skin Lesions, No rash Neuro : No Weakness, No Numbness, No Paresthesias, No Loss of Consciousness, No Dizziness, No Headache Psych : Complaining of anxiety, depression, suicidal ideation, no homicidal ideation Heme/Lymph: No Bruising, No Bleeding,No Lymphadenopathy Endocrine : No Polyuria, No Polydipsia, No Temperature Intolerance PMFSH Past Medical History Medical History Drug abuse Seizure Social History Social History Household Members: None Housing: Other Housing Other:: presently homeless Do you presently have visiting nurse or other home services: No Patient Tobacco Use Status: Current everyday Tobacco user Tobacco use type: Cigarette Cigarette Packs Per Day: 0.5 Cigarettes Per Day: 10.0 Years Smoked: 15 Second Hand Smoke Exposure: Yes Substance Use Type: Heroin and IV Drugs service: No Sexual orientation: Decline to Answer Physical Exam Vital Signs: Vital Signs: Last Vital Signs Temp 97.8 F 06/21/22 01:57 Pulse 74 06/21/22 01:57 Resp 18 06/21/22 01:57 BP 129/75 06/21/22 01:57 Pulse Ox 98 06/21/22 01:57 O2 Del Method 06/21/22 01:57 BMI result Body Mass Index 32.9 Const: Other: Appearance: Alert. Oriented X3. Very somnolent Eyes: Pupils equal, round and reactive to light. ENT: Pharynx normal. Neck: Normal inspection. Neck supple. No lymph nodes noted. No crepitus CVS: Normal heart rate and rhythm. Pulses normal. Normal S1 and S2 Respiratory: No respiratory distress. Breath sounds normal. No Wheezing. No rales Abdomen: Soft and nontender. No rigidity. No distention. Skin: Skin warm and dry. Normal skin color. Normal skin turgor. Extremities: No lower extremity edema. No Lacerations. No Rash Neuro: Oriented X 3. No motor deficit. No sensory deficit. Moving all extremities. No slurred speech. CN 2 through 12 grossly intact Psych: calm, cooperative, somnolent, coherent Course Course Course Narrative: [facility] pending in the morning. Physician observation started 03:15. Discharge Plan Discharge Clinical Impression: Suicidal ideation, Depression Patient Disposition: Still a Patient Prescriptions: No Action phenobarbital 97.2 mg tablet 1 tab PO BEDTIME Rx Instructions: PATIENT IS TAPERING UP TO THIS DOSE, TO BEGIN ON 05/26/21 prazosin 1 mg capsule 1 cap PO BEDTIME hydroxyzine pamoate 50 mg capsule 1 cap PO TID PRN (Reason: Anxiety) quetiapine 100 mg tablet 1 tab PO BEDTIME gabapentin [Neurontin] 800 mg tablet 800 mg PO TID trazodone 100 mg tablet 1 tab PO BEDTIME nicotine 21 mg/24 hr patch 24 hour 21 mg transdermal DAILY phenobarbital 64.8 mg tablet 64.8 mg PO BEDTIME Rx Instructions: PATIENT IS TAPERING UP. SUPPOSED TO TAKE 64.8 MG UNTIL 05/26, THEN INCREASE TO 97.2 MG quetiapine [Seroquel] 50 mg tablet 50 mg PO TID PRN (Reason: AGITATION) phenobarbital 97.2 mg tablet 97.2 mg PO BEDTIME Qty: 30 0RF gabapentin 800 mg tablet 800 mg PO TID Qty: 90 0RF trazodone 100 mg tablet 100 mg PO BEDTIME Qty: 30 0RF quetiapine [Seroquel] 100 mg tablet 100 mg PO BEDTIME Qty: 30 0RF prazosin 1 mg capsule 1 mg PO BEDTIME Qty: 30 0RF quetiapine [Seroquel] 50 mg tablet 50 mg PO TID PRN (Reason: anxiety) Qty: 90 0RF
[2022-06-21 04:00] LABS: COVID-19 Test Negative (Negative); IDNOW Serial# 16C4AD1C
--- NOTE | 2022-06-21 04:30 | PC.NURSE ---
pt resting in hw bed. pt in no distress. 1:1 sitter remains constant
[2022-06-21 05:07] VITALS: RESP 18
--- NOTE | 2022-06-21 05:20 | PC.NURSE ---
smart sheet completed
--- NOTE | 2022-06-21 09:22 | PC.NURSE ---
sleeping all morning thus far, sitter at bedside, resp even and unlabored
--- NOTE | 2022-06-21 14:48 | PHA.MEDREC ---
Pharmacy Consult ? Medication Reconciliation Pharmacy has completed the medication reconciliation. Verified with [facility], last filled 04/23 for 30 day supplies Thanks Nikhil
--- NOTE | 2022-06-21 15:40 | PC.NURSE ---
RN to RN report received from Joao BLANCO. Pt sleeping at this time. Sitter at bedside. No acute distress, respirations even/unlabored.
[2022-06-21 16:25] LABS: Appearance Urine HAZY; Color Urine YELLOW; Glucose Urine UA NEG (NEG); Leukocyte Esterase Urine NEG (NEG); Nitrite Urine POS (NEG); Specific Gravity - Urine >= 1.030 (1.005-1.025); UACC Culture Trigger YES; Urine Blood NEG (NEG); Urine Ketones NEG (NEG); Urine Protein NEG (NEG-TRACE)
[2022-06-21 16:26] LABS: UPreg QC Valid YES; Urine Pregnancy NEGATIVE (NEGATIVE)
[2022-06-21 16:33] LABS: Bacteria Urine 4+ /LPF; Calcium Oxalate Crystals Urine 2+ /LPF; RBC Urine 0 /HPF (0); Squamous Epithelial Cell Urine 1+ /LPF; WBC Urine 0-2 /HPF (0-4)
[2022-06-21 16:46] LABS: Amphetamine Screen Urine Not Detected (Not Detect); Barbiturates, Urine POSITIVE (Not Detect); Benzodiazepines Screen Urine Not Detected (Not Detect); Cannabinoid Screen Urine Not Detected (Not Detect); Cocaine Screen Urine POSITIVE (Not Detect); Fentanyl, urine POSITIVE (Not Detect); Opiate Screen Urine POSITIVE (Not Detect); Phencyclidine Screen Urine Not Detected (Not Detect)
[2022-06-21 18:58] VITALS: BP 104/60; PULSE 66; RESP 16; TEMP 36.4; O2SAT 100
--- NOTE | 2022-06-22 | ECG_ITS ---
Test Reason : medical clearance Blood Pressure : / mmHG Vent. Rate : 068 BPM Atrial Rate : 068 BPM P-R Int : 146 ms QRS Dur : 088 ms QT Int : 408 ms P-R-T Axes : 018 063 039 degrees QTc Int : 433 ms Normal sinus rhythm Normal ECG When compared with ECG of 14-JUN-2022 18:42, No significant change was found Referred By: Tomas Toribio Electronically Signed By:Omar Gomez
[2022-06-22 00:25] VITALS: BP 141/89; PULSE 79; RESP 16; TEMP 36.4; O2SAT 99
[2022-06-22] MEDS: LORazepam 1 MG TABLET 2 MG PO (00:47)
[2022-06-22] MEDS: Gabapentin 400 MG CAPSULE 800 MG PO ×4 (00:47→21:32)
[2022-06-22] MEDS: traZODone HCL 100 MG TABLET PO ×2 (00:47→21:31)
[2022-06-22] MEDS: Prazosin HCL 1 MG CAPSULE PO ×2 (00:47→21:31)
[2022-06-22] MEDS: QUEtiapine Fumarate 100 MG TABLET PO ×2 (00:47→21:31)
[2022-06-22] MEDS: QUEtiapine Fumarate 50 MG TABLET PO (00:47)
--- NOTE | 2022-06-22 06:29 | PC.NURSE ---
Patient slept through the night, no distress observed/reported, behavior non concerning, medication compliant, disposition per [facility] is section 12 inpatient bed search, VSS, pending Methadone dose verification at 0800, will continue to monitor.
--- NOTE | 2022-06-22 08:21 | PC.NURSE ---
Methadone dose verified, 65mg. Last dose taken 06/19/22 at 10:52am. Form faxed to pharmacy. Dr Toribio notified.
--- NOTE | 2022-06-22 08:49 | HE.PHANOTE ---
RE METHADONE FORM ENTERED
[2022-06-22] MEDS: methADONE HCl 20 MG/2 ML ORAL.CONC 65 MG PO (09:04)
--- NOTE | 2022-06-22 09:30 | PC.NURSE ---
Went in to draw labs at 0928 pt stated she didn't want to. FRANCIS Baker went to discuss why we need the labs and pt stated its too early and already got stuck multiple times
--- NOTE | 2022-06-22 09:32 | PC.NURSE ---
Patient refusing lab draw. Will let provider know.
--- NOTE | 2022-06-22 10:02 | PC.NURSE ---
after pt spoke with the provider pt allowed me to try to draw. Pt would only let me try the right AC no where else after one attempt with no success. I called phlebotomy
[2022-06-22 10:14] LABS: COVID-19 Test Negative (Negative); IDNOW Serial# 55D5AD1C
--- NOTE | 2022-06-22 10:38 | PC.NURSE ---
Unable to obtain lab work by staff and phlebotomy. Patient refuses lab draw. Will re-attempt again later.
[2022-06-22 13:07] LABS: MANUAL DIFF FLAG NO
[2022-06-22 13:11] LABS: Eosinophils Absolute Auto 0.1 X10*3/uL (0.0-0.4); Eosinophils Percent Auto 0.9 % (0-4); Hematocrit 35.2 % (37.0-47.0); Hemoglobin 11.3 g/dl (12.0-16.0); Imm Gran Abs Auto 0.01 X10*3/uL (0.00-0.03); Imm Gran Pct Auto 0.1 % (0.0-0.4); Lymphocytes Absolute Auto 3.1 X10*3/uL (1.2-4.9); Lymphocytes Percent Auto 44.6 % (20-40); Mean Corpuscular HGB Conc 32.1 g/dl (31.0-35.0); Mean Corpuscular Hemoglobin 26.8 pg (27.0-33.0); Mean Corpuscular Volume 83.6 fL (80.0-98.0); Mean Platelet Volume 11.2 fL (9.4-12.3); Monocytes Absolute Auto 0.5 X10*3/uL (0.1-1.2); Neutrophils Absolute Auto 3.3 x10*3/uL (2.0-8.3); Neutrophils Percent Auto 47.4 % (45-73); Platelet Count 242 X10*3/uL (160-400); Red Blood Count 4.21 X10*6/uL (4.20-5.50); Red Cell Distribution Width 14.3 % (11.0-16.0); White Blood Count 6.9 X10*3/uL (4.8-10.8)
[2022-06-22 13:26] LABS: Anion Gap 10 (12-20); Blood Urea Nitrogen 12 mg/dL (9-16); Calcium 8.5 mg/dL (8.4-10.2); Carbon Dioxide 23 mmol/L (22-29); Chloride 106 mmol/L (96-108); Creatinine Clr Calc Pharmacy 113.7; Estimated Glomerular Filt Rate > 60; Glucose Random 109 mg/dL (60-115); Sodium 135 mmol/L (135-145)
[2022-06-22 13:29] VITALS: BP 101/41; PULSE 64; RESP 18; TEMP 36.4; O2SAT 97
--- NOTE | 2022-06-22 15:46 | PC.NURSE ---
assumed care of pt, pt sleeping RR even and unlabored, snoring.
--- NOTE | 2022-06-22 17:41 | P.PNPSI_ITS ---
Subjective Subjective Reason For Visit: depression with si polysubstance use disorder Diagnostics Vital Signs (24Hr): Vital Signs - 24 hr 06/21/22 18:58 06/22/22 00:25 06/22/22 13:29 Temperature 97.5 F 97.6 F 97.6 F Pulse Rate 66 79 64 Respiratory Rate 16 16 18 Blood Pressure 104/60 141/89 H 101/41 L Pulse Oximetry 100 99 97 Oxygen Delivery Method Room Air Room Air Room Air BMI result Body Mass Index 32.9 Labs Results: 06/22/22 12:57 06/22/22 12:57 Labs: Laboratory Results - last 48 hr 06/21/22 06/21/22 06/21/22 03:42 16:15 16:15 WBC RBC Hgb Hct MCV MCH MCHC RDW Plt Count MPV Immature Gran % (Auto) Neut % (Auto) Lymph % (Auto) [place] % (Auto) Eos % (Auto) Baso % (Auto) Lymph # (Auto) [place] # (Auto) Eos # (Auto) Baso # (Auto) Abs Immat Gran (auto) Absolute Neuts (auto) Absolute Nucleated RBC Nucleated RBC % (auto) Sodium Potassium Chloride Carbon Dioxide Anion Gap BUN Creatinine Estim Creat Clear Calc Estimated GFR Random Glucose Calcium Urine Color YELLOW Urine Appearance HAZY Urine pH 6.0 Ur Specific [place] >= 1.030 H Urine Protein NEG Urine Glucose (UA) NEG Urine Ketones NEG Urine Blood NEG Urine Nitrite POS H Ur Leukocyte Esterase NEG Urine RBC 0 Urine WBC 0-2 Ur Squamous Epith Cells 1+ Calcium Oxalate Crystal 2+ Urine Bacteria 4+ Urine Test NEGATIVE Urine Opiates Screen Urine Fentanyl Screen Ur Barbiturates Screen Ur Phencyclidine Scrn Ur Amphetamines Screen U Benzodiazepines Scrn Urine Cocaine Screen U Marijuana (THC) Screen COVID-19 (EMMANUEL) Negative COVID-19 Clin Com See Note 06/21/22 06/22/22 06/22/22 16:15 09:38 12:57 WBC 6.9 RBC 4.21 Hgb 11.3 L Hct 35.2 L MCV 83.6 MCH 26.8 L MCHC 32.1 RDW 14.3 Plt Count 242 MPV 11.2 Immature Gran % (Auto) 0.1 Neut % (Auto) 47.4 Lymph % (Auto) 44.6 H [place] % (Auto) 7.0 Eos % (Auto) 0.9 Baso % (Auto) 0.0 Lymph # (Auto) 3.1 [place] # (Auto) 0.5 Eos # (Auto) 0.1 Baso # (Auto) 0.0 Abs Immat Gran (auto) 0.01 Absolute Neuts (auto) 3.3 Absolute Nucleated RBC 0.000 Nucleated RBC % (auto) 0.0 Sodium Potassium Chloride Carbon Dioxide Anion Gap BUN Creatinine Estim Creat Clear Calc Estimated GFR Random Glucose Calcium Urine Color Urine Appearance Urine pH Ur Specific [place] Urine Protein Urine Glucose (UA) Urine Ketones Urine Blood Urine Nitrite Ur Leukocyte Esterase Urine RBC Urine WBC Ur Squamous Epith Cells Calcium Oxalate Crystal Urine Bacteria Urine Test Urine Opiates Screen POSITIVE H Urine Fentanyl Screen POSITIVE H Ur Barbiturates Screen POSITIVE H Ur Phencyclidine Scrn Not Detected Ur Amphetamines Screen Not Detected U Benzodiazepines Scrn Not Detected Urine Cocaine Screen POSITIVE H U Marijuana (THC) Screen Not Detected COVID-19 (EMMANUEL) Negative COVID-19 [employer] Com See Note 06/22/22 12:57 WBC RBC Hgb Hct MCV MCH MCHC RDW Plt Count MPV Immature Gran % (Auto) Neut % (Auto) Lymph % (Auto) [place] % (Auto) Eos % (Auto) Baso % (Auto) Lymph # (Auto) [place] # (Auto) Eos # (Auto) Baso # (Auto) Abs Immat Gran (auto) Absolute Neuts (auto) Absolute Nucleated RBC Nucleated RBC % (auto) Sodium 135 Potassium 4.0 Chloride 106 Carbon Dioxide 23 Anion Gap 10 L BUN 12 Creatinine 0.69 Estim Creat Clear Calc 113.7 Estimated GFR > 60 Random Glucose 109 Calcium 8.5 Urine Color Urine Appearance Urine pH Ur Specific [place] Urine Protein Urine Glucose (UA) Urine Ketones Urine Blood Urine Nitrite Ur Leukocyte Esterase Urine RBC Urine WBC Ur Squamous Epith Cells Calcium Oxalate Crystal Urine Bacteria Urine Test Urine Opiates Screen Urine Fentanyl Screen Ur Barbiturates Screen Ur Phencyclidine Scrn Ur Amphetamines Screen U Benzodiazepines Scrn Urine Cocaine Screen U Marijuana (THC) Screen COVID-19 (EMMANUEL) COVID-19 Clin Com Medications Medications Current Medications Acetaminophen (Acetaminophen 325 Mg Tablet) 650 mg PO Q6H PRN PRN Reason: Headache/Pain Mild Scale (1-3) Al Hydroxide/Mg Hydroxide (Magnesium Hydrox/Alum Hydrox 30 Ml Oral.Susp) 30 ml PO Q6H PRN PRN Reason: Heartburn/Nausea Gabapentin (Gabapentin 400 Mg Capsule) 800 mg PO TID MURRAY Last Admin: 06/22/22 14:54 Dose: 800 mg Hydroxyzine HCl (Hydroxyzine Hcl 25 Mg Tablet) 25 mg PO Q6H PRN PRN Reason: Anxiety Magnesium Hydroxide (Milk Of Magnesia 30 Ml Oral.Susp) 30 ml PO DAILY PRN PRN Reason: Constipation Methadone HCl (Methadone Hcl 20 Mg/2 Ml Oral.Conc) 65 mg PO DAILY MURRAY Last Admin: 06/22/22 09:04 Dose: 65 mg Pharmacy Consult (Consult Rx Perform Med Rec) 1 each MISCELLANE ONCE PRN PRN Reason: Consult order Phenobarbital (Phenobarbital 100 Mg Tablet) 100 mg PO BEDTIME MURRAY Last Admin: 06/22/22 02:35 Dose: Not Given Prazosin HCl (Prazosin Hcl 1 Mg Capsule) 1 mg PO BEDTIME MURRAY; Protocol Last Admin: 06/22/22 00:47 Dose: 1 mg Quetiapine Fumarate (Quetiapine Fumarate 100 Mg Tablet) 100 mg PO BEDTIME MURRAY Last Admin: 06/22/22 00:47 Dose: 100 mg Quetiapine Fumarate (Quetiapine Fumarate 50 Mg Tablet) 50 mg PO TID PRN PRN Reason: anxiety Last Admin: 06/22/22 00:47 Dose: 50 mg Trazodone HCl (Trazodone Hcl 100 Mg Tablet) 100 mg PO BEDTIME MURRAY Last Admin: 06/22/22 00:47 Dose: 100 mg Allergies Allergies Allergy/AdvReac Type Severity Reaction Status Date / Time No Known Allergies Allergy Verified 04/22/22 16:29 Assessment & Plan I spent minutes with the patient and/or on the patient floor today, greater than?50% of which was spent counseling/coordinating care.
--- NOTE | 2022-06-22 19:29 | PC.ADMIT ---
Pt is a 32-year-old female admitted on M5 from [facility] ED for depression with polysubstance abuse disorder. Pt signed a CV. Per ED report, the patient presented with passive suicidal ideation and has been out of medications for around one and a half months. Pt reports passive suicidal thoughts with out plan, anxiety and depression. She reports being homeless and currently living with different people. Pt reports use of heroin and cocaine and is a daily smoker smoking around one pack of cigarettes daily. Pt reports being tired and fell asleep during admission. Pt reports a history of trauma and disturbed sleep due to night [place]. Pt has no current out patient providers.
[2022-06-22 21:38] VITALS: BP 111/57; PULSE 73; RESP 16; TEMP 36.6
[2022-06-23 06:00] VITALS: BP 116/62; PULSE 81; RESP 16; TEMP 36.6; O2SAT 99
[2022-06-23] MEDS: Gabapentin 400 MG CAPSULE 800 MG PO ×3 (09:23→22:00)
[2022-06-23] MEDS: methADONE HCl 20 MG/2 ML ORAL.CONC 65 MG PO (09:24)
--- NOTE | 2022-06-23 10:01 | HO.PSYADMNOT ---
HPI Date of Service: 06/23/22 Chief Complaint: depression with si polysubstance use disorder Sources of Information: patient interviewed, chart reviewed and crisis/core team assessment reviewed HPI Subjective Notes: Conditional Voluntary Healthcare Proxy: No Guardianship: No Narrative: Jinny is a 32-year-old white, single, mother of 3. This is 1 of several psychiatric hospitalizations. She was last hospitalized but a month ago. She is homeless. She has a longstanding history of polysubstance abuse, primarily heroin and cocaine. She has been substance free and is on methadone. She has not been taking any psychotropics other than her methadone for the past month. She is not connected to any clinics. She self presented to the emergency room because of passive suicidal ideations. No history of attempts. She does have 3 children who are being taking care of by her mother. She had last been on Zoloft, gabapentin. She is on phenobarbital for her seizure disorder. She also has been on prazosin and Seroquel which have also been ordered Social history: Jinny is 1 of 2 siblings. Her parents have been since she was young. She has had no marriages and 3 children were taking care of by her mother. She has been homeless. She did finish high school but nothing beyond. Past Psychiatric History: hx substance abuse- recent use was crack cocaine as that was what they had [facility] psych admit dced 05/15/21 Medical Evaluation Reviewed: Yes [facility] Medical History Drug abuse Seizure Family History: pt unwilling to engage in this Social History: living with one boyfriend or another, kalpana Baker, prior to that [facility] [phone]- would like to go back there- Her mother has custody of her children Trauma History: not reviewed today pt was minimally engaged wanting to just talk about leaving Diagnostics Vital Signs (24Hr): Vital Signs - 24 hr 06/22/22 13:29 06/22/22 21:38 06/23/22 06:00 Temperature 97.6 F 97.8 F 97.9 F Pulse Rate 64 73 81 Respiratory Rate 18 16 16 Blood Pressure 101/41 L 111/57 L 116/62 Pulse Oximetry 97 99 Oxygen Delivery Method Room Air Room Air BMI result Body Mass Index 32.9 Labs Results: 06/22/22 12:57 06/22/22 12:57 Labs: Laboratory Results - last 48 hr 06/21/22 06/21/22 06/21/22 16:15 16:15 16:15 WBC RBC Hgb Hct MCV MCH MCHC RDW Plt Count MPV Immature Gran % (Auto) Neut % (Auto) Lymph % (Auto) [place] % (Auto) Eos % (Auto) Baso % (Auto) Lymph # (Auto) [place] # (Auto) Eos # (Auto) Baso # (Auto) Abs Immat Gran (auto) Absolute Neuts (auto) Absolute Nucleated RBC Nucleated RBC % (auto) Sodium Potassium Chloride Carbon Dioxide Anion Gap BUN Creatinine Estim Creat Clear Calc Estimated GFR Random Glucose Calcium Urine Color YELLOW Urine Appearance HAZY Urine pH 6.0 Ur Specific [place] >= 1.030 H Urine Protein NEG Urine Glucose (UA) NEG Urine Ketones NEG Urine Blood NEG Urine Nitrite POS H Ur Leukocyte Esterase NEG Urine RBC 0 Urine WBC 0-2 Ur Squamous Epith Cells 1+ Calcium Oxalate Crystal 2+ Urine Bacteria 4+ Urine Test NEGATIVE Urine Opiates Screen POSITIVE H Urine Fentanyl Screen POSITIVE H Ur Barbiturates Screen POSITIVE H Ur Phencyclidine Scrn Not Detected Ur Amphetamines Screen Not Detected U Benzodiazepines Scrn Not Detected Urine Cocaine Screen POSITIVE H U Marijuana (THC) Screen Not Detected COVID-19 (EMMANUEL) COVID-19 Clin Com 06/22/22 06/22/22 06/22/22 09:38 12:57 12:57 WBC 6.9 RBC 4.21 Hgb 11.3 L Hct 35.2 L MCV 83.6 MCH 26.8 L MCHC 32.1 RDW 14.3 Plt Count 242 MPV 11.2 Immature Gran % (Auto) 0.1 Neut % (Auto) 47.4 Lymph % (Auto) 44.6 H [place] % (Auto) 7.0 Eos % (Auto) 0.9 Baso % (Auto) 0.0 Lymph # (Auto) 3.1 [place] # (Auto) 0.5 Eos # (Auto) 0.1 Baso # (Auto) 0.0 Abs Immat Gran (auto) 0.01 Absolute Neuts (auto) 3.3 Absolute Nucleated RBC 0.000 Nucleated RBC % (auto) 0.0 Sodium 135 Potassium 4.0 Chloride 106 Carbon Dioxide 23 Anion Gap 10 L BUN 12 Creatinine 0.69 Estim Creat Clear Calc 113.7 Estimated GFR > 60 Random Glucose 109 Calcium 8.5 Urine Color Urine Appearance Urine pH Ur Specific [place] Urine Protein Urine Glucose (UA) Urine Ketones Urine Blood Urine Nitrite Ur Leukocyte Esterase Urine RBC Urine WBC Ur Squamous Epith Cells Calcium Oxalate Crystal Urine Bacteria Urine Test Urine Opiates Screen Urine Fentanyl Screen Ur Barbiturates Screen Ur Phencyclidine Scrn Ur Amphetamines Screen U Benzodiazepines Scrn Urine Cocaine Screen U Marijuana (THC) Screen COVID-19 (EMMANUEL) Negative COVID-19 Clin Com See Note Meds/Allergies Meds Home Medications Medication Instructions Recorded Confirmed Type phenobarbital 97.2 mg tablet 1 tab PO BEDTIME 05/18/21 06/21/22 History prazosin 1 mg capsule 1 cap PO BEDTIME 05/18/21 06/21/22 History quetiapine 100 mg tablet 1 tab PO BEDTIME 05/18/21 06/21/22 History methadone 10 mg/mL injection 65 mg subcut DAILY 06/22/22 06/22/22 History solution Allergies Allergies Allergy/AdvReac Type Severity Reaction Status Date / Time No Known Allergies Allergy Verified 04/22/22 16:29 Mental Status Exam Mental Status Exam Narrative: In today's evaluation. She is alert, oriented and pleasant. Speech is normal. Minimal eye contact. Affect is appropriate and subdued. Mood is sad. No signs of psychosis. She denies any active suicidal ideations but admits to having had feelings of hopelessness and passive suicidal ideations prior to coming in. Cognitively is intact. Judgment is intact Assessment & Plan Assessment & Plan (1) Depression: Status: Acute Code(s): F32.A - Depression, unspecified Plan Patient was admitted for treatment and stabilization. She was admitted on a CV. Most recent medications were reviewed and restarted. Outpatient referral to be made Patient educated on: diagnosis and medication risk/benefits Reason for continued inpatient stay Substantial Risk for: harm to self
[2022-06-23] MEDS: Sertraline HCL 50 MG TABLET PO (11:12)
--- NOTE | 2022-06-23 11:34 | PC.NURSE ---
Reviewed urine lab results w/ MD, no further orders at this time.
--- NOTE | 2022-06-23 12:13 | PC.NURSE ---
Reviewed Micro UA results w/ MD. Repeat UA ordered.
[2022-06-23] MEDS: QUEtiapine Fumarate 50 MG TABLET PO (14:30)
[2022-06-23 21:55] VITALS: BP 117/71; PULSE 75; RESP 16; TEMP 36.1
[2022-06-23] MEDS: Prazosin HCL 1 MG CAPSULE PO (22:00)
[2022-06-23] MEDS: traZODone HCL 100 MG TABLET PO (22:00)
[2022-06-23] MEDS: QUEtiapine Fumarate 100 MG TABLET PO (22:00)
[2022-06-24 06:00] VITALS: BP 114/64; PULSE 69; RESP 16; TEMP 36.4; O2SAT 98
[2022-06-24] MEDS: methADONE HCl 20 MG/2 ML ORAL.CONC 65 MG PO (08:18)
[2022-06-24] MEDS: Gabapentin 400 MG CAPSULE 800 MG PO ×3 (08:18→22:23)
--- NOTE | 2022-06-24 09:03 | HO.PSYCHPN ---
Subjective Subjective Date of Service: 06/24/22 Reason For Visit: depression with si polysubstance use disorder Subjective Notes: Conditional Voluntary Healthcare Proxy: No Guardianship: No Medical Problems Affecting Mental Status: No Interim History: Patient was seen and discussed in rounds today. She has been mostly isolative. She does interact on one-to-one contact. Eating and sleeping adequately. Complains of anxiety and depression. No SI. She denies any urinary tract symptoms. A repeat urinalysis was ordered but has not been done yet. No complaints or side effects. No changes were made today Review of Systems Review of Systems Yes all other systems are reviewed and are negative Mental Status Exam Mental Status Exam Narrative: In today's evaluation. She is alert, oriented and pleasant. Speech is normal. Minimal eye contact. Affect is appropriate and subdued. Mood is stable. No signs of psychosis. She denies any active suicidal ideations but admits to having had feelings of hopelessness and passive suicidal ideations prior to coming in. Cognitively is intact. Judgment is intact Diagnostics Vital Signs (24Hr): Vital Signs - 24 hr 06/23/22 21:55 06/24/22 06:00 Temperature 97.0 F 97.6 F Pulse Rate 75 69 Respiratory Rate 16 16 Blood Pressure 117/71 114/64 Pulse Oximetry 98 BMI result Body Mass Index 32.9 Labs Results: 06/22/22 12:57 06/22/22 12:57 Labs: Laboratory Results - last 48 hr 06/22/22 06/22/22 06/22/22 09:38 12:57 12:57 WBC 6.9 RBC 4.21 Hgb 11.3 L Hct 35.2 L MCV 83.6 MCH 26.8 L MCHC 32.1 RDW 14.3 Plt Count 242 MPV 11.2 Immature Gran % (Auto) 0.1 Neut % (Auto) 47.4 Lymph % (Auto) 44.6 H [place] % (Auto) 7.0 Eos % (Auto) 0.9 Baso % (Auto) 0.0 Lymph # (Auto) 3.1 [place] # (Auto) 0.5 Eos # (Auto) 0.1 Baso # (Auto) 0.0 Abs Immat Gran (auto) 0.01 Absolute Neuts (auto) 3.3 Absolute Nucleated RBC 0.000 Nucleated RBC % (auto) 0.0 Sodium 135 Potassium 4.0 Chloride 106 Carbon Dioxide 23 Anion Gap 10 L BUN 12 Creatinine 0.69 Estim Creat Clear Calc 113.7 Estimated GFR > 60 Random Glucose 109 Calcium 8.5 COVID-19 (EMMANUEL) Negative COVID-19 Clin Com See Note Medications Medications Current Medications Acetaminophen (Acetaminophen 325 Mg Tablet) 650 mg PO Q6H PRN PRN Reason: Headache/Pain Mild Scale (1-3) Al Hydroxide/Mg Hydroxide (Magnesium Hydrox/Alum Hydrox 30 Ml Oral.Susp) 30 ml PO Q6H PRN PRN Reason: Heartburn/Nausea Gabapentin (Gabapentin 400 Mg Capsule) 800 mg PO TID MURRAY Last Admin: 06/24/22 08:18 Dose: 800 mg Hydroxyzine HCl (Hydroxyzine Hcl 25 Mg Tablet) 25 mg PO Q6H PRN PRN Reason: Anxiety Magnesium Hydroxide (Milk Of Magnesia 30 Ml Oral.Susp) 30 ml PO DAILY PRN PRN Reason: Constipation Methadone HCl (Methadone Hcl 20 Mg/2 Ml Oral.Conc) 65 mg PO DAILY MURRAY Last Admin: 06/24/22 08:18 Dose: 65 mg Pharmacy Consult (Consult Rx Perform Med Rec) 1 each MISCELLANE ONCE PRN PRN Reason: Consult order Phenobarbital (Phenobarbital 100 Mg Tablet) 100 mg PO BEDTIME MURRAY Last Admin: 06/23/22 22:00 Dose: 100 mg Prazosin HCl (Prazosin Hcl 1 Mg Capsule) 1 mg PO BEDTIME MURRAY; Protocol Last Admin: 06/23/22 22:00 Dose: 1 mg Quetiapine Fumarate (Quetiapine Fumarate 100 Mg Tablet) 100 mg PO BEDTIME MURRAY Last Admin: 06/23/22 22:00 Dose: 100 mg Quetiapine Fumarate (Quetiapine Fumarate 50 Mg Tablet) 50 mg PO TID PRN PRN Reason: anxiety Last Admin: 06/23/22 14:30 Dose: 50 mg Trazodone HCl (Trazodone Hcl 100 Mg Tablet) 100 mg PO BEDTIME MURRAY Last Admin: 06/23/22 22:00 Dose: 100 mg Allergies Allergies Allergy/AdvReac Type Severity Reaction Status Date / Time No Known Allergies Allergy Verified 04/22/22 16:29 Assessment & Plan Assessment & Plan (1) Depression: Status: Acute Code(s): F32.A - Depression, unspecified Plan Patient was admitted for treatment and stabilization. She was admitted on a CV. Most recent medications were reviewed and restarted. Outpatient referral to be made 06/24: Continue current regimen and plans I spent minutes with the patient and/or on the patient floor today, greater than?50% of which was spent counseling/coordinating care. Reason for contiued inpatient stay Substantial Risk for: med/psych decompensation
[2022-06-24] MEDS: QUEtiapine Fumarate 50 MG TABLET PO ×2 (10:45→18:09)
[2022-06-24 12:02] LABS: Appearance Urine CLEAR; Color Urine STRAW; Glucose Urine UA NEG (NEG); Leukocyte Esterase Urine 1+ (NEG); Nitrite Urine NEG (NEG); PH 6.5 (5.0-8.0); Specific Gravity - Urine 1.015 (1.005-1.025); UACC Culture Trigger YES; Urine Blood NEG (NEG); Urine Ketones NEG (NEG); Urine Protein NEG (NEG-TRACE)
[2022-06-24 12:29] LABS: RBC Urine 0 /HPF (0); Squamous Epithelial Cell Urine 2+ /LPF; Trichomonas Urine NOTED
[2022-06-24 18:00] VITALS: BP 137/57; PULSE 70; RESP 18; TEMP 36.6; O2SAT 97
[2022-06-24] MEDS: QUEtiapine Fumarate 100 MG TABLET PO (22:23)
[2022-06-24] MEDS: traZODone HCL 100 MG TABLET PO (22:23)
[2022-06-24] MEDS: Prazosin HCL 1 MG CAPSULE PO (22:23)
[2022-06-25 06:00] VITALS: BP 111/67; PULSE 74; RESP 16; TEMP 36.6; O2SAT 98
[2022-06-25] MEDS: methADONE HCl 20 MG/2 ML ORAL.CONC 65 MG PO (09:47)
[2022-06-25] MEDS: Gabapentin 400 MG CAPSULE 800 MG PO ×3 (09:48→20:00)
[2022-06-25] MEDS: QUEtiapine Fumarate 50 MG TABLET PO ×2 (09:51→14:30)
--- NOTE | 2022-06-25 10:26 | HO.PSYCHPN ---
Subjective Subjective Date of Service: 06/25/22 Reason For Visit: depression with si polysubstance use disorder Interim History: Patient reports still very depressed. Denies SI. She says she has been on lots of different medications in the past, many of them at the same time and so she is not sure which things have helped or not. She endorses history of trauma have became momentarily tearful; she endorsed emotional reactivity and high expressed emotion in interpersonal relationships. Patient also endorsed 3 days of hypomanic behaviors were she did not need sleep, she was talking fast, her mind was moving too fast, she would get easily irritable and hit people and was promiscuous, engaging in behaviors she would not normally do. This episode others occurred even while she was sober, the 1st 1 being which was 15 years old. She said she has tried Depakote And made her gain weight; never tried lithium Try Lamictal but does not know how it helped. Patient agrees to get back on clonidine which she says does help. She reports having anxiety throughout the day all day and thinks that this is much of a cause of her depression. Mental Status Exam Mental Status Exam Narrative: Pt is alert and oriented; behavior is quiet but cooperative, mostly isolates in room; calm; patient is not in distress; dressed in casual attire, unkempt; mood is described as depressed and affect congruent, downcast, sometimes tearful; eye contact appropriate; Speech is normal rate, volume and prosody and not pressured; psychomotor retardation present; thought process is organized and goal directed; Thought content is on tx; otherwise pertinent to relevant topics and without any delusional content, paranoid ideations or grandiosity; denies any SI/HI. There is no evidence of perceptual disturbance. Patients insight and judgment appear intact. Diagnostics Vital Signs (24Hr): Vital Signs - 24 hr 06/24/22 18:00 06/25/22 06:00 Temperature 97.9 F 97.9 F Pulse Rate 70 74 Respiratory Rate 18 16 Blood Pressure 137/57 L 111/67 Pulse Oximetry 97 98 Oxygen Delivery Method Room Air BMI result Body Mass Index 32.9 Labs Results: 06/22/22 12:57 06/22/22 12:57 Labs: Laboratory Results - last 48 hr 06/24/22 10:30 Urine Color STRAW Urine Appearance CLEAR Urine pH 6.5 Ur Specific [place] 1.015 Urine Protein NEG Urine Glucose (UA) NEG Urine Ketones NEG Urine Blood NEG Urine Nitrite NEG Ur Leukocyte Esterase 1+ H Urine RBC 0 Urine WBC 1-4 Ur Squamous Epith Cells 2+ Urine Bacteria NONE Urine Trichomonas NOTED Medications Medications Current Medications Acetaminophen (Acetaminophen 325 Mg Tablet) 650 mg PO Q6H PRN PRN Reason: Headache/Pain Mild Scale (1-3) Al Hydroxide/Mg Hydroxide (Magnesium Hydrox/Alum Hydrox 30 Ml Oral.Susp) 30 ml PO Q6H PRN PRN Reason: Heartburn/Nausea Gabapentin (Gabapentin 400 Mg Capsule) 800 mg PO TID MURRAY Last Admin: 06/25/22 09:48 Dose: 800 mg Hydroxyzine HCl (Hydroxyzine Hcl 25 Mg Tablet) 25 mg PO Q6H PRN PRN Reason: Anxiety Magnesium Hydroxide (Milk Of Magnesia 30 Ml Oral.Susp) 30 ml PO DAILY PRN PRN Reason: Constipation Methadone HCl (Methadone Hcl 20 Mg/2 Ml Oral.Conc) 65 mg PO DAILY MURRAY Last Admin: 06/25/22 09:47 Dose: 65 mg Pharmacy Consult (Consult Rx Perform Med Rec) 1 each MISCELLANE ONCE PRN PRN Reason: Consult order Phenobarbital (Phenobarbital 100 Mg Tablet) 100 mg PO BEDTIME MURRAY Last Admin: 06/24/22 22:23 Dose: 100 mg Prazosin HCl (Prazosin Hcl 1 Mg Capsule) 1 mg PO BEDTIME MURRAY; Protocol Last Admin: 06/24/22 22:23 Dose: 1 mg Quetiapine Fumarate (Quetiapine Fumarate 100 Mg Tablet) 100 mg PO BEDTIME MURRAY Last Admin: 06/24/22 22:23 Dose: 100 mg Quetiapine Fumarate (Quetiapine Fumarate 50 Mg Tablet) 50 mg PO TID PRN PRN Reason: anxiety Last Admin: 06/25/22 09:51 Dose: 50 mg Trazodone HCl (Trazodone Hcl 100 Mg Tablet) 100 mg PO BEDTIME MURRAY Last Admin: 06/24/22 22:23 Dose: 100 mg Allergies Allergies Allergy/AdvReac Type Severity Reaction Status Date / Time No Known Allergies Allergy Verified 04/22/22 16:29 Assessment & Plan Assessment & Plan (1) Depression: Status: Acute Code(s): F32.A - Depression, unspecified Plan Patient is a 32-year-old female with history of PTSD, possibly bipolar disorder and polysubstance abuse who presents for worsening depression. Plan: Start clonidine p.r.n. for anxiety Schedule trazodone for sleep to see if this works; made Seroquel p.r.n. for continued insomnia Will review history further to make medication adjustments I spent minutes with the patient and/or on the patient floor today, greater than?50% of which was spent counseling/coordinating care. Patient educated on: diagnosis, medication risk/benefits and substance abuse Informed Consent: understands Reason for contiued inpatient stay Substantial Risk for: rapid decompensation
[2022-06-25 19:55] VITALS: BP 119/64; PULSE 74; TEMP 36.9; O2SAT 98
[2022-06-25] MEDS: cloNIDine HCL 0.1 MG TABLET PO (20:00)
[2022-06-25] MEDS: Prazosin HCL 1 MG CAPSULE PO (20:00)
[2022-06-25] MEDS: traZODone HCL 100 MG TABLET PO (20:00)
[2022-06-25] MEDS: QUEtiapine Fumarate 100 MG TABLET PO (23:08)
--- NOTE | 2022-06-26 00:23 | PC.NURSE ---
Patient mentioned that she was feeling sweaty and said she was withdrawing . Vitals were not elevated and patient reported no nausea; did c/o a headache but declined additional medications. Will continue to monitor.
[2022-06-26] MEDS: QUEtiapine Fumarate 50 MG TABLET PO ×2 (03:50→20:05)
[2022-06-26 06:00] VITALS: BP 95/60; PULSE 65; RESP 16; O2SAT 98
[2022-06-26] MEDS: Gabapentin 400 MG CAPSULE 800 MG PO ×3 (09:15→20:05)
[2022-06-26] MEDS: methADONE HCl 20 MG/2 ML ORAL.CONC 65 MG PO (09:16)
[2022-06-26] MEDS: hydrOXYzine HCL 25 MG TABLET PO (09:20)
--- NOTE | 2022-06-26 10:32 | HO.PSYCHPN ---
Subjective Subjective Date of Service: 06/26/22 Reason For Visit: depression with si polysubstance use disorder Interim History: Patient reports that she is feeling pretty miserable in opioid withdrawal; would like methadone increased in agrees to increasing it to 70 mg. Discussed medication options given history of hypomanic episodes and likely diagnosis of bipolar disorder and patient agrees to trial of Lamictal, which she has been on in the past. Patient thinks Seroquel is better for sleep and asks for that to be scheduled. Depressed but no SI. Patient said she has done abusing heroin and wants to get into a CSS/TSS and then a sober living situation. Mental Status Exam Mental Status Exam Narrative: Pt is alert and oriented; behavior is quiet but cooperative, mostly isolates in room; calm; patient is not in distress; dressed in casual attire, unkempt, marginal hygiene; mood is described as depressed and affect congruent, downcast, eye contact appropriate; Speech is normal rate, volume and prosody and not pressured; psychomotor retardation present; thought process is organized and goal directed; Thought content is on tx; otherwise pertinent to relevant topics and without any delusional content, paranoid ideations or grandiosity; denies any SI/HI. There is no evidence of perceptual disturbance. Patients insight and judgment appear intact. Diagnostics Vital Signs (24Hr): Vital Signs - 24 hr 06/25/22 19:55 06/26/22 06:00 Temperature 98.4 F Pulse Rate 74 65 Respiratory Rate 16 Blood Pressure 119/64 95/60 Pulse Oximetry 98 98 Oxygen Delivery Method Room Air Room Air BMI result Body Mass Index 32.9 Labs Results: 06/22/22 12:57 06/22/22 12:57 Labs: Laboratory Results - last 48 hr 06/24/22 10:30 Urine Color STRAW Urine Appearance CLEAR Urine pH 6.5 Ur Specific [place] 1.015 Urine Protein NEG Urine Glucose (UA) NEG Urine Ketones NEG Urine Blood NEG Urine Nitrite NEG Ur Leukocyte Esterase 1+ H Urine RBC 0 Urine WBC 1-4 Ur Squamous Epith Cells 2+ Urine Bacteria NONE Urine Trichomonas NOTED Medications Medications Current Medications Acetaminophen (Acetaminophen 325 Mg Tablet) 650 mg PO Q6H PRN PRN Reason: Headache/Pain Mild Scale (1-3) Al Hydroxide/Mg Hydroxide (Magnesium Hydrox/Alum Hydrox 30 Ml Oral.Susp) 30 ml PO Q6H PRN PRN Reason: Heartburn/Nausea Clonidine HCl (Clonidine Hcl 0.1 Mg Tablet) 0.1 mg PO Q4H PRN; Protocol PRN Reason: anxiety Last Admin: 06/25/22 20:00 Dose: 0.1 mg Gabapentin (Gabapentin 400 Mg Capsule) 800 mg PO TID [facility] Last Admin: 06/26/22 09:15 Dose: 800 mg Hydroxyzine HCl (Hydroxyzine Hcl 25 Mg Tablet) 25 mg PO Q6H PRN PRN Reason: Anxiety Last Admin: 06/26/22 09:20 Dose: 25 mg Magnesium Hydroxide (Milk Of Magnesia 30 Ml Oral.Susp) 30 ml PO DAILY PRN PRN Reason: Constipation Methadone HCl (Methadone Hcl 20 Mg/2 Ml Oral.Conc) 65 mg PO DAILY [facility] Last Admin: 06/26/22 09:16 Dose: 65 mg Nicotine (Nicotine 21 Mg Patch.Td24) 21 mg TRANSDERMA DAILY PRN PRN Reason: smoking cessation Nicotine Polacrilex (Nicotine Polacrilex Lozenge 4 Mg Lozenge) 4 mg BUCCAL Q2H PRN PRN Reason: Nicotine Cravings Pharmacy Consult (Consult Rx Perform Med Rec) 1 each MISCELLANE ONCE PRN PRN Reason: Consult order Phenobarbital (Phenobarbital 100 Mg Tablet) 100 mg PO BEDTIME [facility] Last Admin: 06/25/22 20:00 Dose: 100 mg Prazosin HCl (Prazosin Hcl 1 Mg Capsule) 1 mg PO BEDTIME [facility]; Protocol Last Admin: 06/25/22 20:00 Dose: 1 mg Quetiapine Fumarate (Quetiapine Fumarate 50 Mg Tablet) 50 mg PO TID PRN PRN Reason: anxiety Last Admin: 06/26/22 03:50 Dose: 50 mg Quetiapine Fumarate (Quetiapine Fumarate 100 Mg Tablet) 100 mg PO BEDTIME PRN PRN Reason: continued insomnia Last Admin: 06/25/22 23:08 Dose: 100 mg Trazodone HCl (Trazodone Hcl 100 Mg Tablet) 100 mg PO BEDTIME [facility] Last Admin: 06/25/22 20:00 Dose: 100 mg Allergies Allergies Allergy/AdvReac Type Severity Reaction Status Date / Time No Known Allergies Allergy Verified 04/22/22 16:29 Assessment & Plan Assessment & Plan (1) Bipolar disorder, current episode depressed, mild or moderate severity, unspecified: Status: Acute Code(s): F31.30 - Bipolar disorder, current episode depressed, mild or moderate severity, unspecified (2) Opioid abuse: Status: Acute Code(s): F11.10 - Opioid abuse, uncomplicated (3) Opioid withdrawal: Status: Acute Code(s): F11.93 - Opioid use, unspecified with withdrawal (4) Chronic post-traumatic stress disorder (PTSD): Status: Acute Code(s): F43.12 - Post-traumatic stress disorder, chronic Plan Patient is a 32-year-old female with history of PTSD, possibly bipolar disorder and opiate abuse/dependence on Methadone who presents for worsening depression in the face of psychosocial stressors and continued substance abuse. Hospital course: On admission, patient was depressed and in opiate withdrawal; no SI. Endorsed history of hypomanic episodes even during times of sobriety; meets criteria and will provisionally diagnosed with bipolar disorder Patient complains of anxiety being 1 of the most predominant problems for her; patient wants to stay away from medications that can cause weight gain and so agrees to start Lamictal for mood stability and possibly anxiety. Will continue to try and get collateral and medication history Plan: START Lamictal for mood stability depression/anxiety (remote mortgage underwriter reviewed risks/side effects, including risk of Clayton Audi's and patient understands, ask questions and agrees to trial) Increase Methadone to 70mg daily; patient continues to relapse on lower dose Start clonidine p.r.n. for anxiety; helpful Schedule Seroquel for sleep to see if this works; made trazodone p.r.n. for continued insomnia Will review history further to make medication adjustments Patient wants CSS/TSS I spent minutes with the patient and/or on the patient floor today, greater than?50% of which was spent counseling/coordinating care. Patient educated on: diagnosis, medication risk/benefits, substance abuse and therapeutic strategies Informed Consent: understands Reason for contiued inpatient stay Substantial Risk for: rapid decompensation
[2022-06-26] MEDS: QUEtiapine Fumarate 100 MG TABLET PO (16:30)
[2022-06-26] MEDS: lamoTRIgine 25 MG TABLET PO (16:52)
[2022-06-26] MEDS: Dicyclomine HCl 10 MG CAPSULE PO (16:53)
[2022-06-26] MEDS: Thiamine HCL 100 MG TABLET PO (16:53)
[2022-06-26] MEDS: Cyclobenzaprine HCl 10 MG TABLET PO (16:53)
[2022-06-26] MEDS: methADONE HCl 20 MG/2 ML ORAL.CONC 5 MG PO (16:54)
[2022-06-26 18:00] VITALS: BP 134/68; PULSE 90; RESP 16; TEMP 36.1; O2SAT 96
[2022-06-26] MEDS: Prazosin HCL 1 MG CAPSULE PO (20:05)
[2022-06-27] MEDS: hydrOXYzine HCL 25 MG TABLET PO (03:17)
[2022-06-27] MEDS: QUEtiapine Fumarate 50 MG TABLET PO (03:17)
[2022-06-27] MEDS: cloNIDine HCL 0.1 MG TABLET PO ×2 (03:17→14:42)
[2022-06-27 06:17] VITALS: BP 105/56; PULSE 87; RESP 18
[2022-06-27] MEDS: Gabapentin 400 MG CAPSULE 800 MG PO ×3 (09:52→20:24)
[2022-06-27] MEDS: Folic Acid 1 MG TABLET PO (09:52)
[2022-06-27] MEDS: lamoTRIgine 25 MG TABLET PO (09:52)
[2022-06-27] MEDS: Thiamine HCL 100 MG TABLET PO (09:52)
[2022-06-27] MEDS: methADONE HCl 20 MG/2 ML ORAL.CONC 70 MG PO (09:53)
[2022-06-27] MEDS: Multivitamin TABLET 1 TAB PO (09:53)
[2022-06-27 14:43] VITALS: BP 115/57; PULSE 87
[2022-06-27] MEDS: Acetaminophen 325 MG TABLET 650 MG PO (14:48)
--- NOTE | 2022-06-27 16:00 | P.PNPSI_ITS ---
Subjective Subjective Date of Service: 06/27/22 Reason For Visit: depression with si polysubstance use disorder Interim History: Patient still feels depressed and has trouble sleeping. Asks if methadone can be increased further and technical document writer agrees to increase it to 75 mg. She wonders if getting a 5 mg dose late in the afternoon yesterday caused some part of her insomnia since she finds herself activated by methadone rather than sedated. Patient would like to try Thorazine as a p.r.n. since Seroquel not that helpful; however she wants Seroquel at bedtime for sleep. Her mother gave patient history of medications which include Abilify, Depakote (which caused weight gain), Thorazine, Prozac and Adderall Discussed possibility of lithium however patient is wary of this medication give n which he has heard from others. That said she was open to education about it Mental Status Exam Mental Status Exam Narrative: Pt is alert and oriented; behavior is quiet but cooperative, mostly isolates in room; calm; patient is not in distress; dressed in casual attire, appropriate hygiene; mood is described as depressed and affect congruent, downcast, eye contact appropriate; Speech is normal rate, volume and prosody and not pressured; psychomotor retardation present; thought process is organized and goal directed; Thought content is on tx; otherwise pertinent to relevant topics and without any delusional content, paranoid ideations or grandiosity; denies any SI/HI. There is no evidence of perceptual disturbance. Patients insight and judgment appear intact. Diagnostics Vital Signs (24Hr): Vital Signs - 24 hr 06/26/22 18:00 06/27/22 06:17 06/27/22 14:43 Temperature 96.9 F Pulse Rate 90 87 87 Respiratory Rate 16 18 Blood Pressure 134/68 105/56 L 115/57 L Pulse Oximetry 96 Oxygen Delivery Method Room Air BMI result Body Mass Index 32.9 Labs Results: 06/22/22 12:57 06/22/22 12:57 Medications Medications Current Medications Acetaminophen (Acetaminophen 325 Mg Tablet) 650 mg PO Q6H PRN PRN Reason: Headache/Pain Mild Scale (1-3) Last Admin: 06/27/22 14:48 Dose: 650 mg Al Hydroxide/Mg Hydroxide (Magnesium Hydrox/Alum Hydrox 30 Ml Oral.Susp) 30 ml PO Q6H PRN PRN Reason: Heartburn/Nausea Chlorpromazine HCl (Chlorpromazine Hcl 25 Mg Tablet) 50 mg PO TID PRN PRN Reason: anxiety Clonidine HCl (Clonidine Hcl 0.1 Mg Tablet) 0.1 mg PO Q4H PRN; Protocol PRN Reason: anxiety Last Admin: 06/27/22 14:42 Dose: 0.1 mg Cyclobenzaprine HCl (Cyclobenzaprine Hcl 10 Mg Tablet) 10 mg PO TID PRN PRN Reason: muscle cramps Dicyclomine HCl (Dicyclomine Hcl 10 Mg Capsule) 10 mg PO TID PRN PRN Reason: stomach cramps Last Admin: 06/26/22 16:53 Dose: 10 mg Folic Acid (Folic Acid 1 Mg Tablet) 1 mg PO DAILY [facility] Last Admin: 06/27/22 09:52 Dose: 1 mg Gabapentin (Gabapentin 400 Mg Capsule) 800 mg PO TID [facility] Last Admin: 06/27/22 14:37 Dose: 800 mg Hydroxyzine HCl (Hydroxyzine Hcl 25 Mg Tablet) 25 mg PO Q6H PRN PRN Reason: Anxiety Last Admin: 06/27/22 03:17 Dose: 25 mg Lamotrigine (Lamotrigine 25 Mg Tablet) 25 mg PO DAILY [facility] Last Admin: 06/27/22 09:52 Dose: 25 mg Magnesium Hydroxide (Milk Of Magnesia 30 Ml Oral.Susp) 30 ml PO DAILY PRN PRN Reason: Constipation Methadone HCl (Methadone Hcl 20 Mg/2 Ml Oral.Conc) 75 mg PO DAILY [facility] Multivitamins/Vitamin C (Multivitamin Tablet) 1 tab PO DAILY [facility] Last Admin: 06/27/22 09:53 Dose: 1 tab Nicotine (Nicotine 21 Mg Patch.Td24) 21 mg TRANSDERMA DAILY PRN PRN Reason: smoking cessation Nicotine Polacrilex (Nicotine Polacrilex Lozenge 4 Mg Lozenge) 4 mg BUCCAL Q2H PRN PRN Reason: Nicotine Cravings Pharmacy Consult (Consult Rx Perform Med Rec) 1 each MISCELLANE ONCE PRN PRN Reason: Consult order Phenobarbital (Phenobarbital 100 Mg Tablet) 100 mg PO BEDTIME [facility] Last Admin: 06/26/22 20:05 Dose: 100 mg Prazosin HCl (Prazosin Hcl 1 Mg Capsule) 1 mg PO BEDTIME [facility]; Protocol Last Admin: 06/26/22 20:05 Dose: 1 mg Quetiapine Fumarate (Quetiapine Fumarate 100 Mg Tablet) 100 mg PO BEDTIME [facility] Thiamine HCl (Thiamine Hcl 100 Mg Tablet) 100 mg PO DAILY [facility] Last Admin: 06/27/22 09:52 Dose: 100 mg Trazodone HCl (Trazodone Hcl 100 Mg Tablet) 100 mg PO BEDTIME PRN PRN Reason: continued insomnia Allergies Allergies Allergy/AdvReac Type Severity Reaction Status Date / Time No Known Allergies Allergy Verified 04/22/22 16:29 Assessment & Plan Assessment & Plan (1) Bipolar disorder, current episode depressed, mild or moderate severity, unspecified: Status: Acute Code(s): F31.30 - Bipolar disorder, current episode depressed, mild or moderate severity, unspecified (2) Opioid abuse: Status: Acute Code(s): F11.10 - Opioid abuse, uncomplicated (3) Opioid withdrawal: Status: Acute Code(s): F11.93 - Opioid use, unspecified with withdrawal (4) Chronic post-traumatic stress disorder (PTSD): Status: Acute Code(s): F43.12 - Post-traumatic stress disorder, chronic Plan Patient is a 32-year-old female with history of PTSD, possibly bipolar disorder and opiate abuse/dependence on Methadone who presents for worsening depression in the face of psychosocial stressors and continued substance abuse. Hospital course: On admission, patient was depressed and in opiate withdrawal; no SI. Endorsed history of hypomanic episodes even during times of sobriety; meets criteria and will provisionally diagnosed with bipolar disorder Patient complains of anxiety being 1 of the most predominant problems for her; patient wants to stay away from medications that can cause weight gain and so agrees to start Lamictal for mood stability and possibly anxiety. Will continue to try and get collateral and medication history 06/27 still depressed, no SI. Patient reports Depakote not helpful and caused weight gain; she is wary about lithium. Patient agrees that to some degree it will take time and sobriety in order to tell which medications are helpful. For now will continue with Lamictal. Plan: START Lamictal for mood stability depression/anxiety (technical document writer reviewed risks/side effects, including risk of [place] Audi's and patient understands, ask questions and agrees to trial) Increase Methadone to 75mg daily; patient continues to relapse on lower dose Adding Thorazine 50 mg as p.r.n. for anxiety Start clonidine p.r.n. for anxiety; helpful Schedule Seroquel for sleep to see if this works; made trazodone p.r.n. for continued insomnia Will review history further to make medication adjustments Patient wants CSS/TSS I spent minutes with the patient and/or on the patient floor today, greater than?50% of which was spent counseling/coordinating care. Patient educated on: diagnosis, medication risk/benefits and substance abuse Informed Consent: understands Reason for contiued inpatient stay Substantial Risk for: rapid decompensation
[2022-06-27 16:05] VITALS: BP 98/54; PULSE 69; TEMP 36.7; O2SAT 98
[2022-06-27] MEDS: chlorproMAZINE HCl 25 MG TABLET 50 MG PO ×2 (16:18→20:27)
[2022-06-27] MEDS: QUEtiapine Fumarate 100 MG TABLET PO (20:23)
[2022-06-27] MEDS: Prazosin HCL 1 MG CAPSULE PO (20:23)
[2022-06-27 20:25] VITALS: BP 109/55; PULSE 84
[2022-06-28] MEDS: cloNIDine HCL 0.1 MG TABLET PO ×2 (01:14→18:44)
[2022-06-28] MEDS: chlorproMAZINE HCl 25 MG TABLET 50 MG PO ×2 (01:14→14:29)
--- NOTE | 2022-06-28 10:22 | P.PNPSI_ITS ---
Subjective Subjective Date of Service: 06/28/22 Reason For Visit: depression with si polysubstance use disorder Interim History: pt reports she slept much better last night and feels more rested today; subsequently, she feels her mood is a little better. She also appreciates increased Methadone and says withdrawal symptoms much lower. Discussed again history of manic episodes and the choice of lithium verse Lamictal; patient does not like the idea of weight gain from lithium but does not like how long it takes for Lamictal to work. Due to ambivalence patient agreed to remain on [place] mictal for now. P.r.n. Thorazine and clonidine helping. No SI Mental Status Exam Mental Status Exam Narrative: Pt is alert and oriented; behavior is quiet but cooperative, mostly isolates in room; calm; patient is not in distress; dressed in casual attire, appropriate hygiene; mood is described as a little better and affect congruent, warmer, smiling at times; eye contact appropriate; Speech is normal rate, volume and prosody and not pressured; some psychomotor retardation present; thought process is organized and goal directed; Thought content is on tx; otherwise pertinent to relevant topics and without any delusional content, paranoid ideations or grandiosity; denies any SI/HI. There is no evidence of perceptual disturbance. Patients insight and judgment appear intact. Diagnostics Vital Signs (24Hr): Vital Signs - 24 hr 06/27/22 14:43 06/27/22 16:05 06/27/22 20:25 Temperature 98.0 F Pulse Rate 87 69 84 Blood Pressure 115/57 L 98/54 L 109/55 L Pulse Oximetry 98 Oxygen Delivery Method Room Air BMI result Body Mass Index 32.9 Labs Results: 06/22/22 12:57 06/22/22 12:57 Medications Medications Current Medications Acetaminophen (Acetaminophen 325 Mg Tablet) 650 mg PO Q6H PRN PRN Reason: Headache/Pain Mild Scale (1-3) Last Admin: 06/27/22 14:48 Dose: 650 mg Al Hydroxide/Mg Hydroxide (Magnesium Hydrox/Alum Hydrox 30 Ml Oral.Susp) 30 ml PO Q6H PRN PRN Reason: Heartburn/Nausea Chlorpromazine HCl (Chlorpromazine Hcl 25 Mg Tablet) 50 mg PO TID PRN PRN Reason: anxiety Last Admin: 06/28/22 01:14 Dose: 50 mg Clonidine HCl (Clonidine Hcl 0.1 Mg Tablet) 0.1 mg PO Q4H PRN; Protocol PRN Reason: anxiety Last Admin: 06/28/22 01:14 Dose: 0.1 mg Cyclobenzaprine HCl (Cyclobenzaprine Hcl 10 Mg Tablet) 10 mg PO TID PRN PRN Reason: muscle cramps Dicyclomine HCl (Dicyclomine Hcl 10 Mg Capsule) 10 mg PO TID PRN PRN Reason: stomach cramps Last Admin: 06/26/22 16:53 Dose: 10 mg Folic Acid (Folic Acid 1 Mg Tablet) 1 mg PO DAILY [facility] Last Admin: 06/27/22 09:52 Dose: 1 mg Gabapentin (Gabapentin 400 Mg Capsule) 800 mg PO TID [facility] Last Admin: 06/27/22 20:24 Dose: 800 mg Hydroxyzine HCl (Hydroxyzine Hcl 25 Mg Tablet) 25 mg PO Q6H PRN PRN Reason: Anxiety Last Admin: 06/27/22 03:17 Dose: 25 mg Lamotrigine (Lamotrigine 25 Mg Tablet) 25 mg PO DAILY [facility] Last Admin: 06/27/22 09:52 Dose: 25 mg Magnesium Hydroxide (Milk Of Magnesia 30 Ml Oral.Susp) 30 ml PO DAILY PRN PRN Reason: Constipation Methadone HCl (Methadone Hcl 20 Mg/2 Ml Oral.Conc) 75 mg PO DAILY [facility] Multivitamins/Vitamin C (Multivitamin Tablet) 1 tab PO DAILY [facility] Last Admin: 06/27/22 09:53 Dose: 1 tab Nicotine (Nicotine 21 Mg Patch.Td24) 21 mg TRANSDERMA DAILY [facility] Nicotine Polacrilex (Nicotine Polacrilex Lozenge 4 Mg Lozenge) 4 mg BUCCAL Q2H PRN PRN Reason: Nicotine Cravings Pharmacy Consult (Consult Rx Perform Med Rec) 1 each MISCELLANE ONCE PRN PRN Reason: Consult order Phenobarbital (Phenobarbital 100 Mg Tablet) 100 mg PO BEDTIME [facility] Last Admin: 06/27/22 20:23 Dose: 100 mg Prazosin HCl (Prazosin Hcl 1 Mg Capsule) 1 mg PO BEDTIME [facility]; Protocol Last Admin: 06/27/22 20:23 Dose: 1 mg Quetiapine Fumarate (Quetiapine Fumarate 100 Mg Tablet) 100 mg PO BEDTIME [facility] Last Admin: 06/27/22 20:23 Dose: 100 mg Thiamine HCl (Thiamine Hcl 100 Mg Tablet) 100 mg PO DAILY [facility] Last Admin: 06/27/22 09:52 Dose: 100 mg Trazodone HCl (Trazodone Hcl 100 Mg Tablet) 100 mg PO BEDTIME PRN PRN Reason: continued insomnia Allergies Allergies Allergy/AdvReac Type Severity Reaction Status Date / Time No Known Allergies Allergy Verified 04/22/22 16:29 Assessment & Plan Assessment & Plan (1) Bipolar disorder, current episode depressed, mild or moderate severity, unspecified: Status: Acute Code(s): F31.30 - Bipolar disorder, current episode depressed, mild or moderate severity, unspecified Assessment and Plan: Provisional diagnosis (2) Opioid abuse: Status: Acute Code(s): F11.10 - Opioid abuse, uncomplicated (3) Opioid withdrawal: Status: Acute Code(s): F11.93 - Opioid use, unspecified with withdrawal (4) Chronic post-traumatic stress disorder (PTSD): Status: Acute Code(s): F43.12 - Post-traumatic stress disorder, chronic Plan Patient is a 32-year-old female with history of PTSD, possibly bipolar disorder and opiate abuse/dependence on Methadone who presents for worsening depression in the face of psychosocial stressors and continued substance abuse. Hospital course: On admission, patient was depressed and in opiate withdrawal; no SI. Endorsed history of hypomanic episodes even during times of sobriety; meets criteria and will provisionally diagnosed with bipolar disorder Patient complains of anxiety being 1 of the most predominant problems for her; patient wants to stay away from medications that can cause weight gain and so agrees to start Lamictal for mood stability and possibly anxiety. Will continue to try and get collateral and medication history 06/27 still depressed, no SI. Patient reports Depakote not helpful and caused weight gain; she is wary about lithium. Patient agrees that to some degree it will take time and sobriety in order to tell which medications are helpful. For now will continue with Lamictal. 06/28 mood is little better, slept better with Seroquel scheduled; feels better with methadone increased. Will remain on Lamictal since ambivalent about lithium. Plan: Continue Lamictal for mood stability depression/anxiety (freelance copywriter reviewed risks/side effects, including risk of [place] Audi's and patient understands, ask questions and agrees to trial) Increased Methadone to 75mg daily; patient continues to relapse on lower dose Thorazine 50 mg as p.r.n. for anxiety clonidine p.r.n. for anxiety; helpful Schedule Seroquel for sleep to see if this works; made trazodone p.r.n. for continued insomnia Will review history further to make medication adjustments Patient wants CSS/TSS I spent minutes with the patient and/or on the patient floor today, greater than?50% of which was spent counseling/coordinating care. Patient educated on: diagnosis and medication risk/benefits Informed Consent: understands Reason for contiued inpatient stay Substantial Risk for: rapid decompensation
[2022-06-28] MEDS: Multivitamin TABLET 1 TAB PO (10:30)
[2022-06-28] MEDS: Gabapentin 400 MG CAPSULE 800 MG PO ×3 (10:30→19:41)
[2022-06-28] MEDS: Thiamine HCL 100 MG TABLET PO (10:31)
[2022-06-28] MEDS: lamoTRIgine 25 MG TABLET PO (10:31)
[2022-06-28] MEDS: methADONE HCl 20 MG/2 ML ORAL.CONC 75 MG PO (10:32)
[2022-06-28] MEDS: Folic Acid 1 MG TABLET PO (10:34)
[2022-06-28 12:28] VITALS: BMI 32.0
[2022-06-28] MEDS: Cyclobenzaprine HCl 10 MG TABLET PO (17:24)
[2022-06-28] MEDS: Dicyclomine HCl 10 MG CAPSULE PO (17:25)
[2022-06-28] MEDS: hydrOXYzine HCL 25 MG TABLET PO (17:25)
[2022-06-28 18:00] VITALS: BP 109/79; PULSE 92; RESP 16; TEMP 36.6; O2SAT 99
[2022-06-28] MEDS: Prazosin HCL 1 MG CAPSULE PO (19:40)
[2022-06-28] MEDS: QUEtiapine Fumarate 100 MG TABLET PO (19:41)
[2022-06-29] MEDS: hydrOXYzine HCL 25 MG TABLET PO (04:17)
[2022-06-29] MEDS: cloNIDine HCL 0.1 MG TABLET PO (04:17)
[2022-06-29] MEDS: methADONE HCl 20 MG/2 ML ORAL.CONC 75 MG PO (09:52)
[2022-06-29] MEDS: Multivitamin TABLET 1 TAB PO (09:53)
[2022-06-29] MEDS: Thiamine HCL 100 MG TABLET PO (09:53)
[2022-06-29] MEDS: lamoTRIgine 25 MG TABLET PO (09:53)
[2022-06-29] MEDS: Nicotine 21 MG PATCH.TD24 TRANSDERMA (09:53)
[2022-06-29] MEDS: chlorproMAZINE HCl 25 MG TABLET 50 MG PO ×3 (09:53→19:13)
[2022-06-29] MEDS: Folic Acid 1 MG TABLET PO (09:53)
[2022-06-29] MEDS: Gabapentin 400 MG CAPSULE 800 MG PO ×3 (09:53→19:13)
[2022-06-29 18:00] VITALS: BP 113/55; PULSE 86; TEMP 37.1; O2SAT 97
[2022-06-29] MEDS: Prazosin HCL 1 MG CAPSULE PO (19:13)
--- NOTE | 2022-06-29 19:13 | HO.PSYCHPN ---
Subjective Subjective Date of Service: 06/29/22 Reason For Visit: depression with si polysubstance use disorder Subjective Notes: Conditional Voluntary Healthcare Proxy: No Guardianship: No Medical Problems Affecting Mental Status: No Interim History: Pt reporting a difficult day with anergy, amotivation. Increase in sleeping today she reports. No current questions or concerns, just I have a hot/cold feeling sometimes and I don't know what that is. Afebrile. Team working with pt to assist her in out pt care planning. Medication Compliance: Yes Side effects from medications: No Attending Groups: No Review of Systems Acute medical concerns: No Medical Review of Systems: unchanged Mental Status Exam Mental Status Exam Patient Appearance: Appropriate Patient Orientation: Person, Place, Time and Situation Level of Consciousness: Alert Patient Behavior: Appropriate and Talkative Mood Description: Withdrawn Affect Description: Flat Patient Cognition Impaired: No Ability to Follow Directions: Good Speech Pattern: Spontaneous Speech Memory Description: Intact Hallucinations: None Delusions: Not Present Perceptual Disturbances: Derealization Thought Process: Distracted Thought Content: positive for [place] and positive for Circumstantial Depressive Symptoms: Increased Irritability Judgement: Good Diagnostics Vital Signs (24Hr): BMI result Body Mass Index 32.0 Labs Results: 06/22/22 12:57 06/22/22 12:57 Medications Medications Current Medications Acetaminophen (Acetaminophen 325 Mg Tablet) 650 mg PO Q6H PRN PRN Reason: Headache/Pain Mild Scale (1-3) Last Admin: 06/27/22 14:48 Dose: 650 mg Al Hydroxide/Mg Hydroxide (Magnesium Hydrox/Alum Hydrox 30 Ml Oral.Susp) 30 ml PO Q6H PRN PRN Reason: Heartburn/Nausea Chlorpromazine HCl (Chlorpromazine Hcl 25 Mg Tablet) 50 mg PO TID PRN PRN Reason: anxiety Last Admin: 06/29/22 14:06 Dose: 50 mg Clonidine HCl (Clonidine Hcl 0.1 Mg Tablet) 0.1 mg PO Q4H PRN; Protocol PRN Reason: anxiety Last Admin: 06/29/22 04:17 Dose: 0.1 mg Cyclobenzaprine HCl (Cyclobenzaprine Hcl 10 Mg Tablet) 10 mg PO TID PRN PRN Reason: muscle cramps Last Admin: 06/28/22 17:24 Dose: 10 mg Dicyclomine HCl (Dicyclomine Hcl 10 Mg Capsule) 10 mg PO TID PRN PRN Reason: stomach cramps Last Admin: 06/28/22 17:25 Dose: 10 mg Folic Acid (Folic Acid 1 Mg Tablet) 1 mg PO DAILY [facility] Last Admin: 06/29/22 09:53 Dose: 1 mg Gabapentin (Gabapentin 400 Mg Capsule) 800 mg PO TID [facility] Last Admin: 06/29/22 14:06 Dose: 800 mg Hydroxyzine HCl (Hydroxyzine Hcl 25 Mg Tablet) 25 mg PO Q6H PRN PRN Reason: Anxiety Last Admin: 06/29/22 04:17 Dose: 25 mg Lamotrigine (Lamotrigine 25 Mg Tablet) 25 mg PO DAILY [facility] Last Admin: 06/29/22 09:53 Dose: 25 mg Magnesium Hydroxide (Milk Of Magnesia 30 Ml Oral.Susp) 30 ml PO DAILY PRN PRN Reason: Constipation Methadone HCl (Methadone Hcl 20 Mg/2 Ml Oral.Conc) 75 mg PO DAILY [facility] Last Admin: 06/29/22 09:52 Dose: 75 mg Multivitamins/Vitamin C (Multivitamin Tablet) 1 tab PO DAILY [facility] Last Admin: 06/29/22 09:53 Dose: 1 tab Nicotine (Nicotine 21 Mg Patch.Td24) 21 mg TRANSDERMA DAILY [facility] Last Admin: 06/29/22 09:53 Dose: 21 mg Nicotine Polacrilex (Nicotine Polacrilex Lozenge 4 Mg Lozenge) 4 mg BUCCAL Q2H PRN PRN Reason: Nicotine Cravings Pharmacy Consult (Consult Rx Perform Med Rec) 1 each MISCELLANE ONCE PRN PRN Reason: Consult order Phenobarbital (Phenobarbital 100 Mg Tablet) 100 mg PO BEDTIME [facility] Last Admin: 06/28/22 19:41 Dose: 100 mg Prazosin HCl (Prazosin Hcl 1 Mg Capsule) 1 mg PO BEDTIME [facility]; Protocol Last Admin: 06/28/22 19:40 Dose: 1 mg Quetiapine Fumarate (Quetiapine Fumarate 100 Mg Tablet) 100 mg PO BEDTIME [facility] Last Admin: 06/28/22 19:41 Dose: 100 mg Thiamine HCl (Thiamine Hcl 100 Mg Tablet) 100 mg PO DAILY [facility] Last Admin: 06/29/22 09:53 Dose: 100 mg Trazodone HCl (Trazodone Hcl 100 Mg Tablet) 100 mg PO BEDTIME PRN PRN Reason: continued insomnia Allergies Allergies Allergy/AdvReac Type Severity Reaction Status Date / Time No Known Allergies Allergy Verified 04/22/22 16:29 Assessment & Plan Assessment & Plan (1) Bipolar disorder, current episode depressed, mild or moderate severity, unspecified: Status: Acute Code(s): F31.30 - Bipolar disorder, current episode depressed, mild or moderate severity, unspecified Assessment and Plan: Provisional diagnosis (2) Opioid abuse: Status: Acute Code(s): F11.10 - Opioid abuse, uncomplicated (3) Opioid withdrawal: Status: Acute Code(s): F11.93 - Opioid use, unspecified with withdrawal (4) Chronic post-traumatic stress disorder (PTSD): Status: Acute Code(s): F43.12 - Post-traumatic stress disorder, chronic Plan Patient is a 32-year-old female with history of PTSD, possibly bipolar disorder and opiate abuse/dependence on Methadone who presents for worsening depression in the face of psychosocial stressors and continued substance abuse. Hospital course: On admission, patient was depressed and in opiate withdrawal; no SI. Endorsed history of hypomanic episodes even during times of sobriety; meets criteria and will provisionally diagnosed with bipolar disorder Patient complains of anxiety being 1 of the most predominant problems for her; patient wants to stay away from medications that can cause weight gain and so agrees to start Lamictal for mood stability and possibly anxiety. Will continue to try and get collateral and medication history 06/27 still depressed, no SI. Patient reports Depakote not helpful and caused weight gain; she is wary about lithium. Patient agrees that to some degree it will take time and sobriety in order to tell which medications are helpful. For now will continue with Lamictal. 06/28 mood is little better, slept better with Seroquel scheduled; feels better with methadone increased. Will remain on Lamictal since ambivalent about lithium. 06/29/22 Some treatment ambivalance regarding participation for aftercare. Refusal of disposition options. Team working to educate and support pt. Continue current regime Plan: Continue Lamictal for mood stability depression/anxiety (senior technical writer reviewed risks/side effects, including risk of Clayton Audi's and patient understands, ask questions and agrees to trial) Increased Methadone to 75mg daily; patient continues to relapse on lower dose Thorazine 50 mg as p.r.n. for anxiety clonidine p.r.n. for anxiety; helpful Schedule Seroquel for sleep to see if this works; made trazodone p.r.n. for continued insomnia Will review history further to make medication adjustments Patient wants CSS/TSS I spent minutes with the patient and/or on the patient floor today, greater than?50% of which was spent counseling/coordinating care. Patient educated on: therapeutic strategies Informed Consent: understands and further education needed Reason for contiued inpatient stay Substantial Risk for: harm to self and inability to function
[2022-06-29] MEDS: QUEtiapine Fumarate 100 MG TABLET PO (19:14)
[2022-06-30] MEDS: cloNIDine HCL 0.1 MG TABLET PO ×2 (00:41→17:10)
[2022-06-30] MEDS: hydrOXYzine HCL 25 MG TABLET PO (00:41)
[2022-06-30 00:42] VITALS: BP 95/65
[2022-06-30] MEDS: chlorproMAZINE HCl 25 MG TABLET 50 MG PO ×2 (05:34→17:10)
[2022-06-30] MEDS: Acetaminophen 325 MG TABLET 650 MG PO (05:35)
[2022-06-30] MEDS: Multivitamin TABLET 1 TAB PO (09:47)
[2022-06-30] MEDS: methADONE HCl 20 MG/2 ML ORAL.CONC 75 MG PO (09:47)
[2022-06-30] MEDS: lamoTRIgine 25 MG TABLET PO (09:47)
[2022-06-30] MEDS: Folic Acid 1 MG TABLET PO (09:47)
[2022-06-30] MEDS: Thiamine HCL 100 MG TABLET PO (09:47)
[2022-06-30] MEDS: Gabapentin 400 MG CAPSULE 800 MG PO ×3 (09:47→21:45)
[2022-06-30 17:05] VITALS: BP 110/62; PULSE 93; RESP 14
--- NOTE | 2022-06-30 21:17 | HO.PSYCHPN ---
Subjective Subjective Date of Service: 06/30/22 Reason For Visit: depression with si polysubstance use disorder Subjective Notes: Rivera Warning and Conditional Voluntary Healthcare Proxy: No Guardianship: No Medical Problems Affecting Mental Status: No Interim History: Patient seen and discussed with team. Patient evaluated today and upon interview she reports she wants discharge on Saturday. Continues to endorse withdrawal/ detox. Asks for methadone increase, will place consult with addiction services. Says withdrawal sx include sweating. She denies nightmares. Sleep is alright, I guess. Minnie is a little bit depressed, not as much as when i came in, feels a lot better than when I came in. Wants to go to [place] for after care for co-occurring illness. Says clonidine helps anxiety. In the milieu, patient is safe but isolative in her room, remains in bed most of the day. Denies SI/SIB/HI. Medication Compliance: Yes Side effects from medications: No Attending Groups: No Review of Systems Acute medical concerns: No Medical Review of Systems: unchanged Mental Status Exam Mental Status Exam Narrative: Patient Appearance: Appropriate Patient Orientation: Person, Place, Time and Situation Level of Consciousness: Alert Patient Behavior: Appropriate and Talkative Mood Description: Withdrawn Affect Description: Flat Patient Cognition Impaired: No Ability to Follow Directions: Good Speech Pattern: Spontaneous Speech Memory Description: Intact Hallucinations: None Delusions: Not Present Perceptual Disturbances: Derealization Thought Process: Distracted Thought Content: positive for [place] and positive for Circumstantial Depressive Symptoms: Increased Irritability Judgement: Good Diagnostics Vital Signs (24Hr): Vital Signs - 24 hr 06/30/22 17:05 06/30/22 21:40 Pulse Rate 93 85 Respiratory Rate 14 14 Blood Pressure 110/62 103/67 BMI result Body Mass Index 32.0 Labs Results: 06/22/22 12:57 06/22/22 12:57 Medications Medications Current Medications Acetaminophen (Acetaminophen 325 Mg Tablet) 650 mg PO Q6H PRN PRN Reason: Headache/Pain Mild Scale (1-3) Last Admin: 06/30/22 05:35 Dose: 650 mg Al Hydroxide/Mg Hydroxide (Magnesium Hydrox/Alum Hydrox 30 Ml Oral.Susp) 30 ml PO Q6H PRN PRN Reason: Heartburn/Nausea Chlorpromazine HCl (Chlorpromazine Hcl 25 Mg Tablet) 50 mg PO TID PRN PRN Reason: anxiety Last Admin: 07/01/22 09:13 Dose: 50 mg Clonidine HCl (Clonidine Hcl 0.1 Mg Tablet) 0.1 mg PO Q4H PRN; Protocol PRN Reason: anxiety Last Admin: 06/30/22 17:10 Dose: 0.1 mg Cyclobenzaprine HCl (Cyclobenzaprine Hcl 10 Mg Tablet) 10 mg PO TID PRN PRN Reason: muscle cramps Last Admin: 06/28/22 17:24 Dose: 10 mg Dicyclomine HCl (Dicyclomine Hcl 10 Mg Capsule) 10 mg PO TID PRN PRN Reason: stomach cramps Last Admin: 06/28/22 17:25 Dose: 10 mg Folic Acid (Folic Acid 1 Mg Tablet) 1 mg PO DAILY [facility] Last Admin: 07/01/22 09:13 Dose: 1 mg Gabapentin (Gabapentin 400 Mg Capsule) 800 mg PO TID [facility] Last Admin: 07/01/22 09:13 Dose: 800 mg Hydroxyzine HCl (Hydroxyzine Hcl 25 Mg Tablet) 25 mg PO Q6H PRN PRN Reason: Anxiety Last Admin: 06/30/22 00:41 Dose: 25 mg Lamotrigine (Lamotrigine 25 Mg Tablet) 25 mg PO DAILY [facility] Last Admin: 07/01/22 09:13 Dose: 25 mg Magnesium Hydroxide (Milk Of Magnesia 30 Ml Oral.Susp) 30 ml PO DAILY PRN PRN Reason: Constipation Methadone HCl (Methadone Hcl 20 Mg/2 Ml Oral.Conc) 75 mg PO DAILY [facility] Last Admin: 07/01/22 09:10 Dose: 75 mg Multivitamins/Vitamin C (Multivitamin Tablet) 1 tab PO DAILY [facility] Last Admin: 07/01/22 09:13 Dose: 1 tab Nicotine (Nicotine 21 Mg Patch.Td24) 21 mg TRANSDERMA DAILY [facility] Last Admin: 07/01/22 09:13 Dose: Not Given Nicotine Polacrilex (Nicotine Polacrilex Lozenge 4 Mg Lozenge) 4 mg BUCCAL Q2H PRN PRN Reason: Nicotine Cravings Phenobarbital (Phenobarbital 100 Mg Tablet) 100 mg PO BEDTIME [facility] Last Admin: 06/30/22 21:45 Dose: 100 mg Prazosin HCl (Prazosin Hcl 1 Mg Capsule) 1 mg PO BEDTIME [facility]; Protocol Last Admin: 06/30/22 21:45 Dose: 1 mg Quetiapine Fumarate (Quetiapine Fumarate 100 Mg Tablet) 100 mg PO BEDTIME [facility] Last Admin: 06/30/22 21:45 Dose: 100 mg Thiamine HCl (Thiamine Hcl 100 Mg Tablet) 100 mg PO DAILY [facility] Last Admin: 07/01/22 09:13 Dose: 100 mg Trazodone HCl (Trazodone Hcl 100 Mg Tablet) 100 mg PO BEDTIME PRN PRN Reason: continued insomnia Allergies Allergies Allergy/AdvReac Type Severity Reaction Status Date / Time No Known Allergies Allergy Verified 04/22/22 16:29 Assessment & Plan Assessment & Plan (1) Bipolar disorder, current episode depressed, mild or moderate severity, unspecified: Status: Acute Code(s): F31.30 - Bipolar disorder, current episode depressed, mild or moderate severity, unspecified Assessment and Plan: Provisional diagnosis (2) Opioid abuse: Status: Acute Code(s): F11.10 - Opioid abuse, uncomplicated (3) Opioid withdrawal: Status: Acute Code(s): F11.93 - Opioid use, unspecified with withdrawal (4) Chronic post-traumatic stress disorder (PTSD): Status: Acute Code(s): F43.12 - Post-traumatic stress disorder, chronic Plan Patient is a 32-year-old female with history of PTSD, possibly bipolar disorder and opiate abuse/dependence on Methadone who presents for worsening depression in the face of psychosocial stressors and continued substance abuse. Hospital course: On admission, patient was depressed and in opiate withdrawal; no SI. Endorsed history of hypomanic episodes even during times of sobriety; meets criteria and will provisionally diagnosed with bipolar disorder Patient complains of anxiety being 1 of the most predominant problems for her; patient wants to stay away from medications that can cause weight gain and so agrees to start Lamictal for mood stability and possibly anxiety. Will continue to try and get collateral and medication history 06/27 still depressed, no SI. Patient reports Depakote not helpful and caused weight gain; she is wary about lithium. Patient agrees that to some degree it will take time and sobriety in order to tell which medications are helpful. For now will continue with Lamictal. 06/28 mood is little better, slept better with Seroquel scheduled; feels better with methadone increased. Will remain on Lamictal since ambivalent about lithium. 06/29/22 Some treatment ambivalance regarding participation for aftercare. Refusal of disposition options. Team working to educate and support pt. Continue current regime 06/30/22 Pt is requesting methadone increase again, will place addiction consult and defer to specialist Plan: Continue Lamictal for mood stability depression/anxiety (card writer hand reviewed risks/side effects, including risk of Clayton Audi's and patient understands, ask questions and agrees to trial) Increased Methadone to 75mg daily; patient continues to relapse on lower dose Thorazine 50 mg as p.r.n. for anxiety clonidine p.r.n. for anxiety; helpful Schedule Seroquel for sleep to see if this works; made trazodone p.r.n. for continued insomnia Will review history further to make medication adjustments Patient wants CSS/TSS I spent minutes with the patient and/or on the patient floor today, greater than?50% of which was spent counseling/coordinating care. Patient educated on: diagnosis, medication risk/benefits and substance abuse Reason for contiued inpatient stay Substantial Risk for: med/psych decompensation
[2022-06-30 21:40] VITALS: BP 103/67; PULSE 85; RESP 14
[2022-06-30] MEDS: QUEtiapine Fumarate 100 MG TABLET PO (21:45)
[2022-06-30] MEDS: Prazosin HCL 1 MG CAPSULE PO (21:45)
[2022-07-01] MEDS: chlorproMAZINE HCl 25 MG TABLET 50 MG PO ×3 (02:08→12:52)
[2022-07-01] MEDS: methADONE HCl 20 MG/2 ML ORAL.CONC 75 MG PO (09:10)
[2022-07-01] MEDS: Thiamine HCL 100 MG TABLET PO (09:13)
[2022-07-01] MEDS: Multivitamin TABLET 1 TAB PO (09:13)
[2022-07-01] MEDS: Folic Acid 1 MG TABLET PO (09:13)
[2022-07-01] MEDS: lamoTRIgine 25 MG TABLET PO (09:13)
[2022-07-01] MEDS: Gabapentin 400 MG CAPSULE 800 MG PO ×3 (09:13→19:08)
--- NOTE | 2022-07-01 10:17 | P.PNPSI_ITS ---
Subjective Subjective Date of Service: 07/01/22 Reason For Visit: depression with si polysubstance use disorder Subjective Notes: [facility] Warning and Conditional Voluntary Healthcare Proxy: No Guardianship: No Medical Problems Affecting Mental Status: No Interim History: Patient seen and discussed with team. Patient evaluated today and upon interview. Addiction consult still pending, methadone is still 75. Pt may not need increase, as she is sedated, sleeping most of the day. Still says she wants to go home tomorrow and says if theyre not gonna let me go to [place] then im leaving. Still says PRN clonidine is helping and the thorazine is helping. Mood is alright. In the milieu, patient is safe but isolative, not engaged. Denies SI/SIB/HI upon inquiry. Denies irritability or assaultive ideation. Says she feels safe. Medication Compliance: Yes Side effects from medications: No Attending Groups: No Review of Systems Acute medical concerns: No Medical Review of Systems: unchanged Mental Status Exam Mental Status Exam Narrative: Patient Appearance: Appropriate Patient Orientation: Person, Place, Time and Situation Level of Consciousness: Alert Patient Behavior: Appropriate and Talkative Mood Description: Withdrawn Affect Description: Flat Patient Cognition Impaired: No Ability to Follow Directions: Good Speech Pattern: Spontaneous Speech Memory Description: Intact Hallucinations: None Delusions: Not Present Perceptual Disturbances: Derealization Thought Process: Distracted Thought Content: positive for [place] and positive for Circumstantial Depressive Symptoms: Increased Irritability Judgement: Good Diagnostics Vital Signs (24Hr): Vital Signs - 24 hr 06/30/22 17:05 06/30/22 21:40 Pulse Rate 93 85 Respiratory Rate 14 14 Blood Pressure 110/62 103/67 BMI result Body Mass Index 32.0 Labs Results: 06/22/22 12:57 06/22/22 12:57 Medications Medications Current Medications Acetaminophen (Acetaminophen 325 Mg Tablet) 650 mg PO Q6H PRN PRN Reason: Headache/Pain Mild Scale (1-3) Last Admin: 06/30/22 05:35 Dose: 650 mg Al Hydroxide/Mg Hydroxide (Magnesium Hydrox/Alum Hydrox 30 Ml Oral.Susp) 30 ml PO Q6H PRN PRN Reason: Heartburn/Nausea Chlorpromazine HCl (Chlorpromazine Hcl 25 Mg Tablet) 50 mg PO TID PRN PRN Reason: anxiety Last Admin: 07/01/22 09:13 Dose: 50 mg Clonidine HCl (Clonidine Hcl 0.1 Mg Tablet) 0.1 mg PO Q4H PRN; Protocol PRN Reason: anxiety Last Admin: 06/30/22 17:10 Dose: 0.1 mg Cyclobenzaprine HCl (Cyclobenzaprine Hcl 10 Mg Tablet) 10 mg PO TID PRN PRN Reason: muscle cramps Last Admin: 06/28/22 17:24 Dose: 10 mg Dicyclomine HCl (Dicyclomine Hcl 10 Mg Capsule) 10 mg PO TID PRN PRN Reason: stomach cramps Last Admin: 06/28/22 17:25 Dose: 10 mg Folic Acid (Folic Acid 1 Mg Tablet) 1 mg PO DAILY [facility] Last Admin: 07/01/22 09:13 Dose: 1 mg Gabapentin (Gabapentin 400 Mg Capsule) 800 mg PO TID [facility] Last Admin: 07/01/22 09:13 Dose: 800 mg Hydroxyzine HCl (Hydroxyzine Hcl 25 Mg Tablet) 25 mg PO Q6H PRN PRN Reason: Anxiety Last Admin: 06/30/22 00:41 Dose: 25 mg Lamotrigine (Lamotrigine 25 Mg Tablet) 25 mg PO DAILY [facility] Last Admin: 07/01/22 09:13 Dose: 25 mg Magnesium Hydroxide (Milk Of Magnesia 30 Ml Oral.Susp) 30 ml PO DAILY PRN PRN Reason: Constipation Methadone HCl (Methadone Hcl 20 Mg/2 Ml Oral.Conc) 75 mg PO DAILY [facility] Last Admin: 07/01/22 09:10 Dose: 75 mg Multivitamins/Vitamin C (Multivitamin Tablet) 1 tab PO DAILY [facility] Last Admin: 07/01/22 09:13 Dose: 1 tab Nicotine (Nicotine 21 Mg Patch.Td24) 21 mg TRANSDERMA DAILY [facility] Last Admin: 07/01/22 09:13 Dose: Not Given Nicotine Polacrilex (Nicotine Polacrilex Lozenge 4 Mg Lozenge) 4 mg BUCCAL Q2H PRN PRN Reason: Nicotine Cravings Phenobarbital (Phenobarbital 100 Mg Tablet) 100 mg PO BEDTIME [facility] Last Admin: 06/30/22 21:45 Dose: 100 mg Prazosin HCl (Prazosin Hcl 1 Mg Capsule) 1 mg PO BEDTIME [facility]; Protocol Last Admin: 06/30/22 21:45 Dose: 1 mg Quetiapine Fumarate (Quetiapine Fumarate 100 Mg Tablet) 100 mg PO BEDTIME [facility] Last Admin: 06/30/22 21:45 Dose: 100 mg Thiamine HCl (Thiamine Hcl 100 Mg Tablet) 100 mg PO DAILY [facility] Last Admin: 07/01/22 09:13 Dose: 100 mg Trazodone HCl (Trazodone Hcl 100 Mg Tablet) 100 mg PO BEDTIME PRN PRN Reason: continued insomnia Allergies Allergies Allergy/AdvReac Type Severity Reaction Status Date / Time No Known Allergies Allergy Verified 04/22/22 16:29 Assessment & Plan Assessment & Plan (1) Bipolar disorder, current episode depressed, mild or moderate severity, unspecified: Status: Acute Code(s): F31.30 - Bipolar disorder, current episode depressed, mild or moderate severity, unspecified Assessment and Plan: Provisional diagnosis (2) Opioid abuse: Status: Acute Code(s): F11.10 - Opioid abuse, uncomplicated (3) Opioid withdrawal: Status: Acute Code(s): F11.93 - Opioid use, unspecified with withdrawal (4) Chronic post-traumatic stress disorder (PTSD): Status: Acute Code(s): F43.12 - Post-traumatic stress disorder, chronic Plan Patient is a 32-year-old female with history of PTSD, possibly bipolar disorder and opiate abuse/dependence on Methadone who presents for worsening depression in the face of psychosocial stressors and continued substance abuse. Hospital course: On admission, patient was depressed and in opiate withdrawal; no SI. Endorsed history of hypomanic episodes even during times of sobriety; meets criteria and will provisionally diagnosed with bipolar disorder Patient complains of anxiety being 1 of the most predominant problems for her; patient wants to stay away from medications that can cause weight gain and so agrees to start Lamictal for mood stability and possibly anxiety. Will continue to try and get collateral and medication history 06/27 still depressed, no SI. Patient reports Depakote not helpful and caused w eight gain; she is wary about lithium. Patient agrees that to some degree it will take time and sobriety in order to tell which medications are helpful. For now will continue with Lamictal. 06/28 mood is little better, slept better with Seroquel scheduled; feels better with methadone increased. Will remain on Lamictal since ambivalent about lithium. 06/29/22 Some treatment ambivalance regarding participation for aftercare. Refusal of disposition options. Team working to educate and support pt. 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 for anxiety clonidine p.r.n. for anxiety; helpful Schedule Seroquel for sleep to see if this works; made trazodone p.r.n. for continued insomnia Will review history further to make medication adjustments Patient wants CSS/TSS I spent minutes with the patient and/or on the patient floor today, greater than?50% of which was spent counseling/coordinating care. Patient educated on: diagnosis, medication risk/benefits and substance abuse Reason for contiued inpatient stay Substantial Risk for: med/psych decompensation
[2022-07-01] MEDS: cloNIDine HCL 0.1 MG TABLET PO (12:52)
[2022-07-01 18:00] VITALS: BP 116/60; PULSE 109; RESP 20; TEMP 36.4; O2SAT 98
[2022-07-01] MEDS: QUEtiapine Fumarate 100 MG TABLET PO (19:09)
[2022-07-01] MEDS: Prazosin HCL 1 MG CAPSULE PO (19:09)
[2022-07-01] MEDS: traZODone HCL 100 MG TABLET PO (23:43)
[2022-07-02] MEDS: chlorproMAZINE HCl 25 MG TABLET 50 MG PO (05:44)
[2022-07-02] MEDS: Acetaminophen 325 MG TABLET 650 MG PO (06:05)
[2022-07-02] MEDS: Multivitamin TABLET 1 TAB PO (08:53)
[2022-07-02] MEDS: lamoTRIgine 25 MG TABLET PO (08:53)
[2022-07-02] MEDS: Gabapentin 400 MG CAPSULE 800 MG PO (08:53)
[2022-07-02] MEDS: Thiamine HCL 100 MG TABLET PO (08:53)
[2022-07-02] MEDS: methADONE HCl 20 MG/2 ML ORAL.CONC 75 MG PO (08:53)
[2022-07-02] MEDS: Folic Acid 1 MG TABLET PO (08:53)
--- NOTE | 2022-07-19 12:51 | PM.PSYDC ---
DS: Providers Provider Date of Service: 07/02/22 Date of admission: 06/22/22 15:53 Date of discharge: 07/02/22 Primary care physician: Unknown Physician Admitting clinician: Jerrell Durant Attending physician on admission: Zohaib Ho Consults: 06/30/22 16:57 Addiction Medicine Routine Consulting Provider: Frances Chaidez Reason for consultation: interested in methadone increase DS: Diagnosis Discharge Diagnosis (1) Bipolar disorder, current episode depressed, mild or moderate severity, unspecified: Status: Acute (2) Opioid abuse: Status: Acute (3) Opioid withdrawal: Status: Resolved (4) Chronic post-traumatic stress disorder (PTSD): Status: Acute DS: Medications Discharge Medications Home Medications: Previous Rx's Medication Instructions Recorded folic acid 1 mg tablet 1 mg PO DAILY #30 tabs 07/02/22 gabapentin 800 mg tablet 800 mg PO TID #21 tabs 07/02/22 gabapentin 800 mg tablet 800 mg PO TID #21 tabs 07/02/22 lamotrigine 25 mg tablet 25 mg PO DAILY #14 tabs 07/02/22 methadone 10 mg/mL oral 75 mg (7.5 mL) PO DAILY #0 mL 07/02/22 concentrate (Methadose) multivitamin (Daily-Tash tablet) 1 tab PO DAILY #30 tabs 07/02/22 naloxone 4 mg/actuation nasal 4 mg intranasal Q2M PRN opioid 07/02/22 spray (Narcan) overdose #2 ea nicotine (polacrilex) 4 mg buccal 4 mg buccal Q2H PRN Nicotine 07/02/22 lozenge Cravings #60 ea nicotine 21 mg/24 hr daily 21 mg transdermal DAILY #30 ea 07/02/22 transdermal patch phenobarbital 100 mg tablet 100 mg PO BEDTIME #7 tabs 07/02/22 prazosin 1 mg capsule 1 cap PO BEDTIME #14 caps 07/02/22 prazosin 1 mg capsule 1 mg PO BEDTIME #14 caps 07/02/22 quetiapine 100 mg tablet (Seroquel) 100 mg PO BEDTIME #14 tabs 07/02/22 quetiapine 100 mg tablet (Seroquel) 100 mg PO BEDTIME #14 tabs 07/02/22 thiamine mononitrate (vit B1) 100 100 mg PO DAILY #30 tabs 07/02/22 mg tablet trazodone 100 mg tablet 100 mg PO BEDTIME #7 tabs 07/02/22 trazodone 100 mg tablet 100 mg PO BEDTIME #7 tabs 07/02/22 Mental Status Exam Mental Status Exam Narrative: Patient Appearance: Appropriate Patient Orientation: Person, Place, Time and Situation Level of Consciousness: Alert Patient Behavior: Appropriate and Talkative Mood Description: Withdrawn Affect Description: Flat Patient Cognition Impaired: No Ability to Follow Directions: Good Speech Pattern: Spontaneous Speech Memory Description: Intact Hallucinations: None Delusions: Not Present Perceptual Disturbances: Derealization Thought Process: Distracted Thought Content: positive for [place] and positive for Circumstantial Depressive Symptoms: Increased Irritability Judgement: Good Data Data Completed and Pending Completed studies during hospitalization [Text1]: 06/24/22 Unknown Urine clean catch - Urine monroy top Urine Culture - Final 06/21/22 16:29 Urine clean catch - Urine monroy top Urine Culture - Final Escherichia coli DS: Summary Hospital Course Hospital Course: Jinny is a 32 y.o. Who carries a dx of Bipolar II disorder, polysubstance abuse. Utox positive for fentanyl, cocaine, opiates, and barbiturates (on phenobarb for seizures), also used Iliana. EKG NSR QTc 433 ms. She [place] [facility] [place]22 due to Depression, SI in the context of med non-adherence x a month and a half and homelessness. She has been adherent with methadone. Pt recently discharged from on 07/02/2022 due to similar presentation. During course of hospitalization, pt was re-started on home meds and prazosin for nightmares, seroquel 100 mg scheduled for sleep. Also given PRN clonidine. Methadone was increased to 70 mg. She agreed to a trial of lamictal for sx of bipolar depression. Pt was referred to [facility] for detox. Time spent discussing smoking cessation with patient: 3 to 10 minutes Status at Discharge Functional status at discharge: independent ambulation Overall status at discharge: patient is back to baseline Time Spent with Patient Time attestation: Total time spent providing and/or coordinating discharge services: Discharge Plan Discharge Patient Disposition: Skilled Nursing Discharge Diagnosis: Bipolar Disorder PTSD Opiate Use Disorder Referrals: Transitional Support Services (TSS): [facility] [Other] - 1 Week (Ext. [phone] (Roseline) or [phone] (Gillian)) [facility] [Outside] - 1 Week ([facility]. [address] [facility] [address]. [phone]) Discharge Medications: New phenobarbital 100 mg Tablet 100 mg PO BEDTIME Qty: 7 4RF lamotrigine 25 mg Tablet 25 mg PO DAILY Qty: 14 1RF gabapentin 800 mg tablet 800 mg PO TID Qty: 21 4RF prazosin 1 mg capsule 1 mg PO BEDTIME Qty: 14 1RF trazodone 100 mg tablet 100 mg PO BEDTIME Qty: 7 4RF Continued quetiapine [Seroquel] 100 mg tablet 100 mg PO BEDTIME Qty: 14 1RF Discontinued phenobarbital 97.2 mg tablet 1 tab PO BEDTIME prazosin 1 mg capsule 1 cap PO BEDTIME quetiapine 100 mg tablet 1 tab PO BEDTIME gabapentin 800 mg tablet 800 mg PO TID Qty: 90 0RF trazodone 100 mg tablet 100 mg PO BEDTIME Qty: 30 0RF quetiapine [Seroquel] 50 mg tablet 50 mg PO TID PRN (Reason: anxiety) Qty: 90 0RF methadone 10 mg/mL Solution 65 mg SUBCUT DAILY No Action methadone [Methadose] 10 mg/mL concentrate 40 mg PO DAILY Rx Instructions: Partial Fill upon patient request. Discharge Orders: Discharge Order (Routine); Ordered 07/02/22 Ordered By: Monique Huntley Diet: Advance to usual diet Activity on Discharge: As tolerated Stand Alone Forms: Patient Portal Discharge page, Community Support Care Plan Goals: Mood stabilization Continue to work on sobriety Practice coping skills Health Concerns: Bipolar Disorder PTSD Opiate use disorder Plan of Treatment: Attend follow up appointments Take medications as directed Practice coping skills Assessment: Risk assessment at time of discharge:? Patient was interviewed prior to discharge and found to be fully oriented and without any SI or HI. Patient has insight and demonstrates good judgment in terms of wanting to pursue treatment. Patient is not in imminent risk of harm to self or others and has a safety plan that includes presenting to the closest ER or calling 911 if feeling unsafe.? Patient has been observed closely by nursing and unit staff throughout admission; patient has not engaged in any behaviors that suggest dangerousness to self or others and has demonstrated appropriate behaviors and impulse control Discharge Date/Time: 07/02/22 13:30
== END 2022-07-02 13:30 | disposition home or self-care (01) | DRG 885 ==
LOC: HO.ED 06-22 14:11 → HO.PM5 06-22 15:59
PROVIDERS: Emergency Medicine; Psychiatry & Neurology Psychiatry; Admitting Provider Psychiatry & Neurology Psychiatry; Emergency Provider Emergency Medicine Emergency Medical Services; Visit Provider Psychiatry & Neurology Psychiatry
DX: F31.30 Bipolar disorder, current episode depressed, mild or moderate severity, unspecified (principal); R45.851 Suicidal ideations; F11.20 Opioid dependence, uncomplicated; F17.210 Nicotine dependence, cigarettes, uncomplicated; F43.10 Post-traumatic stress disorder, unspecified; Z71.6 Tobacco abuse counseling; Z20.822 Contact with and (suspected) exposure to COVID-19; Z59.02 Unsheltered homelessness; Z79.899 Other long term (current) drug therapy
CPT/HCPCS: 36415; 80048; 80307; 81001; 81003; 81025; 85025; 87086; 87088; 87186; 87635; 93005; 99285

== ENCOUNTER 2022-07-24 15:59 | Inpatient (IN) | payer MEDICARE, MEDICAID, SELFPAY ==
[2022-07-24 16:48] VITALS: BP 126/90; PULSE 69; RESP 18; TEMP 36.1; O2SAT 100; BMI 26.4
--- NOTE | 2022-07-24 16:53 | ED_ITS ---
HPI - Psych General Chief Complaint: Psychiatric Symptoms <FARZANA Durbin - Last Filed: 07/25/22 00:33> Stated Complaint: SI <FARZANA Durbin Last Filed: 07/25/22 00:33> Time Seen by Provider: 07/24/22 16:04 <FARZANA Durbin Last Filed: 07/25/22 00:33> Source: patient and EMS <FARZANA Durbin Last Filed: 07/25/22 00:33> Mode of arrival: EMS <FARZANA Durbin Last Filed: 07/25/22 00:33> Limitations: no limitations <FARZANA Durbin Last Filed: 07/25/22 00:33> History of Present Illness HPI Narrative: 32-year-old female past medical history significant for PTSD, bipolar disorder, opiate abuse, cocaine abuse presenting to the emergency department with complaints of suicidal ideation with plan times a few days. Patient tells me that she would like to jump off a bridge or fall sleep on a railroad track to kill herself. She reports multiple life stressors. Tells me she is hearing voices and seeing things however she is unable to tell me exactly what she is seeing a what she is hearing she tells me she thinks she is hearing the voices tell her to kill herself. She denies any recent drugs, alcohol and tobacco. She tells me that she stop using cocaine a few days ago. Denies HI. Denies any medical complaints at this time. <FARZANA Durbin - Last Filed: 07/25/22 00:33> MD complaint: suicidal ideation <FARZANA Durbin - Last Filed: 07/25/22 00:33> Related Data Home Medications: Home Medications Medication Instructions Recorded Confirmed methadone 10 mg/mL oral 40 mg PO DAILY 07/24/22 concentrate (Methadose) Previous Rx's Medication Instructions Recorded gabapentin 800 mg tablet 800 mg PO TID #21 tabs 07/02/22 lamotrigine 25 mg tablet 25 mg PO DAILY #14 tabs 07/02/22 phenobarbital 100 mg tablet 100 mg PO BEDTIME #7 tabs 07/02/22 prazosin 1 mg capsule 1 mg PO BEDTIME #14 caps 07/02/22 quetiapine 100 mg tablet (Seroquel) 100 mg PO BEDTIME #14 tabs 07/02/22 trazodone 100 mg tablet 100 mg PO BEDTIME #7 tabs 07/02/22 <FARZANA Durbin Last Filed: 07/25/22 00:33> Allergies/Adverse Reactions: Allergies Allergy/AdvReac Type Severity Reaction Status Date / Time No Known Allergies Allergy Verified 04/22/22 16:29 <FARZANA Durbin Last Filed: 07/25/22 00:33> Review of Systems Review of Systems: Constitutional : No Fever, No Chills ENT/Mouth : No Ear Pain, No Nasal Congestion, No sore throat Eyes: No Eye Pain, No Swelling, No Redness Cardiovascular : No Chest Pain, No SOB Respiratory : No Cough, No Sputum, No Dyspnea Gastrointestinal : No Nausea, No Vomiting, No Diarrhea, No Hematochezia, No Melena Genitourinary : No Dysuria, No Urinary Frequency, No Hematuria Musculoskeletal : No Myalgias Skin : No Skin Lesions, No rash Neuro : No Weakness, No Numbness, No Paresthesias, No Dizziness, No Headache Psych : positive Anxiety, positive Depression, positive SI/HI Heme/Lymph: No Lymphadenopathy Endocrine : No Polyuria, No Polydipsia All other systems reviewed and are negative <FARZANA Durbin Last Filed: 07/25/22 00:33> Yes all other systems are reviewed and are negative <FARZANA Durbin Last Filed: 07/25/22 00:33> [facility] Past Medical History Attestation statement: The following information was validated with the patient. <FARZANA Durbin Last Filed: 07/25/22 00:33> Source: old records reviewed and nursing notes reviewed <FARZANA Durbin Last Filed: 07/25/22 00:33> Medical History: Medical History Bipolar disorder, current episode depressed, mild or moderate severity, unspecified Chronic post-traumatic stress disorder (PTSD) Drug abuse Opioid abuse Seizure <FARZANA Durbin Last Filed: 07/25/22 00:33> Social History Social History: Social History Household Members: Friend(s) Housing: Assisted Living Facility Housing Other:: presently homeless Do you presently have visiting nurse or other home services: No Unable to assess alcohol history related to: Unknown Patient Tobacco Use Status: Current everyday Tobacco user Tobacco use type: Cigarette Cigarette Packs Per Day: 0.5 Cigarettes Per Day: 10.0 Years Smoked: 15 Second Hand Smoke Exposure: Yes Substance Use Type: Crack/Cocaine and Heroin Advance Directives: No Advance Directives Information Provided: No Guardian: No service: No Sexual orientation: Did not discuss <FARZANA Durbin - Last Filed: 07/25/22 00:33> Physical Exam Vital Signs: Vital Signs: Last Vital Signs Temp 97 F 07/24/22 16:48 Pulse 69 07/24/22 16:48 Resp 18 07/24/22 16:48 BP 126/90 H 07/24/22 16:48 Pulse Ox 100 07/24/22 16:48 O2 Del Method 07/24/22 16:48 BMI result Body Mass Index 26.4 vss <FARZANA Durbin - Last Filed: 07/25/22 00:33> Vital Signs: Last Vital Signs Temp 97 F 07/24/22 16:48 Pulse 69 07/24/22 16:48 Resp 18 07/24/22 16:48 BP 126/90 H 07/24/22 16:48 Pulse Ox 100 07/24/22 16:48 O2 Del Method 07/24/22 16:48 BMI result Body Mass Index 26.4 <Erin Neville MD - Last Filed: 07/24/22 23:53> Appearance: Alert.? Oriented X3.? No acute distress.? Head: Normocephalic, atraumatic, no step-offs or deformities Eyes: Pupils equal, round and reactive to light.? CVS: Normal heart rate and rhythm.? Pulses normal.? Respiratory: No respiratory distress.? Breath sounds normal.? Abdomen: Soft and nontender.? Skin: Skin warm and dry.? Normal skin color.? Normal skin turgor.? Extremities: No lower extremity edema.? No calf ttp. 5/5 strength to bilateral upper and lower extremities Neuro: Oriented X 3.? No motor deficit.? No sensory deficit. CN 2-12 intact <FARZANA Durbin - Last Filed: 07/25/22 00:33> Course Reevaluation(s) Reevaluation #1: CBC hemolyzed,pending repeat, chemistry with no acute electrolyte abnormalities requiring intervention, urine clean, urine toxicology positive for opiates, fentanyl, barbiturates and cocaine. Negative for alcohol. COVID negative. Repeat CBC pending. <FARZANA Durbin - Last Filed: 07/25/22 00:33> Time: 22:14 <FARZANA Durbin - Last Filed: 07/25/22 00:33> Reevaluation #2: Patient will be admitted to diagnosis unspecified bipolar. <FARZANA Durbin - Last Filed: 07/25/22 00:33> Time: 22:15 <FARZANA Durbin - Last Filed: 07/25/22 00:33> Reevaluation #3: Patient was admitted to by Dr. Ho, diagnosis major depressive disorder <Erin Neville MD - Last Filed: 07/24/22 23:53> Time: 23:52 <Erin Neville MD - Last Filed: 07/24/22 23:53> Additional Reevaluation(s): CBC with slightly low, however no other acute findings. Petient denies tr auma, neuro nonfocal, ambulating w steady gait. Plan at this time is for patient to be admitted to , as discussed w/ CARE team <FARZANA Durbin - Last Filed: 07/25/22 00:33> MDM - Psych MDM Narrative Medical decision making narrative: 1627 32-year-old female presenting with suicidal ideation with plan, reports she recently stop using drugs. Physical examination benign. Plan at this time medical clearance and evaluation by the behavioral health team. <FARZANA Durbin - Last Filed: 07/25/22 00:33> Medical Records Attestation: I reviewed the patient's medical records. <FARZANA Durbin - Last Filed: 07/25/22 00:33> Lab Data Attestation: I reviewed the patient's lab results. <FARZANA Durbin - Last Filed: 07/25/22 00:33> Result diagrams: : 07/24/22 22:29 07/24/22 17:49 <FARZANA Durbin - Last Filed: 07/25/22 00:33> Labs: Lab Results 07/24/22 07/24/22 07/24/22 Range/Units 16:51 16:51 16:53 WBC (4.8-10.8) X10*3/uL RBC (4.20-5.50) X10*6/uL Hgb (12.0-16.0) g/dl Hct (37.0-47.0) % MCV (80.0-98.0) fL MCH (27.0-33.0) pg MCHC (31.0-35.0) g/dl RDW (11.0-16.0) % Plt Count (160-400) X10*3/uL MPV (9.4-12.3) fL Immature Gran % (Auto) (0.0-0.4) % Neut % (Auto) (45-73) % Lymph % (Auto) (20-40) % [place] % (Auto) (2-11) % Eos % (Auto) (0-4) % Baso % (Auto) (0-2) % Lymph # (Auto) (1.2-4.9) X10*3/uL [place] # (Auto) (0.1-1.2) X10*3/uL Eos # (Auto) (0.0-0.4) X10*3/uL Baso # (Auto) (0.0-0.2) X10*3/uL Abs Immat Gran (auto) (0.00-0.03) X10*3/uL Absolute Neuts (auto) (2.0-8.3) x10*3/uL Absolute Nucleated RBC (0.0-0.012) X10*3/uL Nucleated RBC % (auto) (0.0-0.2) /100WBC Smear Tech's Comments Sodium (135-145) mmol/L Potassium (3.3-5.1) mmol/L Chloride (96-108) mmol/L Carbon Dioxide (22-29) mmol/L Anion Gap (12-20) BUN (9-16) mg/dL Creatinine (0.5-1.4) mg/dL Estim Creat Clear Calc Estimated GFR Random Glucose (60-115) mg/dL Calcium (8.4-10.2) mg/dL Total Bilirubin (0.0-1.0) mg/dL AST (5-31) U/L ALT (0-31) U/L Alkaline Phosphatase (39-117) U/L Total Protein (6.5-8.0) g/dL Albumin (3.5-5.0) g/dL Urine Color Yellow Urine Appearance Clear Urine pH 6.0 (5.0-8.0) Ur Specific [place] >= 1.030 H (1.005-1.025) Urine Protein Negative (Neg-Trace) mg/dL Urine Glucose (UA) Negative (Negative) mg/dL Urine Ketones Negative (Negative) mg/dL Urine Blood Negative (Negative) Urine Nitrite Negative (Negative) Ur Leukocyte Esterase Negative (Negative) Urine Opiates Screen POSITIVE H (Not Detect) Urine Fentanyl Screen POSITIVE H (Not Detect) Ur Barbiturates Screen POSITIVE H (Not Detect) Ur Phencyclidine Scrn Not Detected (Not Detect) Ur Amphetamines Screen Not Detected (Not Detect) U Benzodiazepines Scrn Not Detected (Not Detect) Urine Cocaine Screen POSITIVE H (Not Detect) U Marijuana (THC) Screen Not Detected (Not Detect) Ethyl Alcohol mg/dL COVID-19 (EMMANUEL) Negative (Negative) COVID-19 Clin Com See Note 07/24/22 07/24/22 Range/Units 17:49 22:29 WBC 8.4 (4.8-10.8) X10*3/uL RBC 4.01 L (4.20-5.50) X10*6/uL Hgb 11.4 L (12.0-16.0) g/dl Hct 34.3 L (37.0-47.0) % MCV 85.5 (80.0-98.0) fL MCH 28.4 (27.0-33.0) pg MCHC 33.2 (31.0-35.0) g/dl RDW 14.6 (11.0-16.0) % Plt Count 136 L D (160-400) X10*3/uL MPV 11.8 (9.4-12.3) fL Immature Gran % (Auto) 0.1 (0.0-0.4) % Neut % (Auto) 37.2 L (45-73) % Lymph % (Auto) 54.4 H (20-40) % [place] % (Auto) 7.0 (2-11) % Eos % (Auto) 1.2 (0-4) % Baso % (Auto) 0.1 (0-2) % Lymph # (Auto) 4.6 (1.2-4.9) X10*3/uL [place] # (Auto) 0.6 (0.1-1.2) X10*3/uL Eos # (Auto) 0.1 (0.0-0.4) X10*3/uL Baso # (Auto) 0.0 (0.0-0.2) X10*3/uL Abs Immat Gran (auto) 0.01 (0.00-0.03) X10*3/uL Absolute Neuts (auto) 3.1 (2.0-8.3) x10*3/uL Absolute Nucleated RBC 0.000 (0.0-0.012) X10*3/uL Nucleated RBC % (auto) 0.0 (0.0-0.2) /100WBC Smear Tech's Comments VERIFIED Sodium 138 (135-145) mmol/L Potassium 4.6 (3.3-5.1) mmol/L Chloride 105 (96-108) mmol/L Carbon Dioxide 21 L (22-29) mmol/L Anion Gap 17 (12-20) BUN 13 (9-16) mg/dL Creatinine 0.69 (0.5-1.4) mg/dL Estim Creat Clear Calc 93.9 Estimated GFR > 60 Random Glucose 108 (60-115) mg/dL Calcium 8.5 (8.4-10.2) mg/dL Total Bilirubin 0.3 (0.0-1.0) mg/dL AST 24 (5-31) U/L ALT 21 (0-31) U/L Alkaline Phosphatase 79 (39-117) U/L Total Protein 7.0 (6.5-8.0) g/dL Albumin 3.6 (3.5-5.0) g/dL Urine Color Urine Appearance Urine pH (5.0-8.0) Ur Specific [place] (1.005-1.025) Urine Protein (Neg-Trace) mg/dL Urine Glucose (UA) (Negative) mg/dL Urine Ketones (Negative) mg/dL Urine Blood (Negative) Urine Nitrite (Negative) Ur Leukocyte Esterase (Negative) Urine Opiates Screen (Not Detect) Urine Fentanyl Screen (Not Detect) Ur Barbiturates Screen (Not Detect) Ur Phencyclidine Scrn (Not Detect) Ur Amphetamines Screen (Not Detect) U Benzodiazepines Scrn (Not Detect) Urine Cocaine Screen (Not Detect) U Marijuana (THC) Screen (Not Detect) Ethyl Alcohol < 10 mg/dL COVID-19 (EMMANUEL) (Negative) COVID-19 Clin Com <FARZANA Durbin - Last Filed: 07/25/22 00:33> Lab Results 07/24/22 07/24/22 07/24/22 Range/Units 16:51 16:51 16:53 WBC (4.8-10.8) X10*3/uL RBC (4.20-5.50) X10*6/uL Hgb (12.0-16.0) g/dl Hct (37.0-47.0) % MCV (80.0-98.0) fL MCH (27.0-33.0) pg MCHC (31.0-35.0) g/dl RDW (11.0-16.0) % Plt Count (160-400) X10*3/uL MPV (9.4-12.3) fL Immature Gran % (Auto) (0.0-0.4) % Neut % (Auto) (45-73) % Lymph % (Auto) (20-40) % [place] % (Auto) (2-11) % Eos % (Auto) (0-4) % Baso % (Auto) (0-2) % Lymph # (Auto) (1.2-4.9) X10*3/uL [place] # (Auto) (0.1-1.2) X10*3/uL Eos # (Auto) (0.0-0.4) X10*3/uL Baso # (Auto) (0.0-0.2) X10*3/uL Abs Immat Gran (auto) (0.00-0.03) X10*3/uL Absolute Neuts (auto) (2.0-8.3) x10*3/uL Absolute Nucleated RBC (0.0-0.012) X10*3/uL Nucleated RBC % (auto) (0.0-0.2) /100WBC Smear Tech's Comments Sodium (135-145) mmol/L Potassium (3.3-5.1) mmol/L Chloride (96-108) mmol/L Carbon Dioxide (22-29) mmol/L Anion Gap (12-20) BUN (9-16) mg/dL Creatinine (0.5-1.4) mg/dL Estim Creat Clear Calc Estimated GFR Random Glucose (60-115) mg/dL Calcium (8.4-10.2) mg/dL Total Bilirubin (0.0-1.0) mg/dL AST (5-31) U/L ALT (0-31) U/L Alkaline Phosphatase (39-117) U/L Total Protein (6.5-8.0) g/dL Albumin (3.5-5.0) g/dL Urine Color Yellow Urine Appearance Clear Urine pH 6.0 (5.0-8.0) Ur Specific [place] >= 1.030 H (1.005-1.025) Urine Protein Negative (Neg-Trace) mg/dL Urine Glucose (UA) Negative (Negative) mg/dL Urine Ketones Negative (Negative) mg/dL Urine Blood Negative (Negative) Urine Nitrite Negative (Negative) Ur Leukocyte Esterase Negative (Negative) Urine Opiates Screen POSITIVE H (Not Detect) Urine Fentanyl Screen POSITIVE H (Not Detect) Ur Barbiturates Screen POSITIVE H (Not Detect) Ur Phencyclidine Scrn Not Detected (Not Detect) Ur Amphetamines Screen Not Detected (Not Detect) U Benzodiazepines Scrn Not Detected (Not Detect) Urine Cocaine Screen POSITIVE H (Not Detect) U Marijuana (THC) Screen Not Detected (Not Detect) Ethyl Alcohol mg/dL COVID-19 (EMMANUEL) Negative (Negative) COVID-19 Clin Com See Note 07/24/22 07/24/22 Range/Units 17:49 22:29 WBC 8.4 (4.8-10.8) X10*3/uL RBC 4.01 L (4.20-5.50) X10*6/uL Hgb 11.4 L (12.0-16.0) g/dl Hct 34.3 L (37.0-47.0) % MCV 85.5 (80.0-98.0) fL MCH 28.4 (27.0-33.0) pg MCHC 33.2 (31.0-35.0) g/dl RDW 14.6 (11.0-16.0) % Plt Count 136 L D (160-400) X10*3/uL MPV 11.8 (9.4-12.3) fL Immature Gran % (Auto) 0.1 (0.0-0.4) % Neut % (Auto) 37.2 L (45-73) % Lymph % (Auto) 54.4 H (20-40) % [place] % (Auto) 7.0 (2-11) % Eos % (Auto) 1.2 (0-4) % Baso % (Auto) 0.1 (0-2) % Lymph # (Auto) 4.6 (1.2-4.9) X10*3/uL [place] # (Auto) 0.6 (0.1-1.2) X10*3/uL Eos # (Auto) 0.1 (0.0-0.4) X10*3/uL Baso # (Auto) 0.0 (0.0-0.2) X10*3/uL Abs Immat Gran (auto) 0.01 (0.00-0.03) X10*3/uL Absolute Neuts (auto) 3.1 (2.0-8.3) x10*3/uL Absolute Nucleated RBC 0.000 (0.0-0.012) X10*3/uL Nucleated RBC % (auto) 0.0 (0.0-0.2) /100WBC Smear Tech's Comments VERIFIED Sodium 138 (135-145) mmol/L Potassium 4.6 (3.3-5.1) mmol/L Chloride 105 (96-108) mmol/L Carbon Dioxide 21 L (22-29) mmol/L Anion Gap 17 (12-20) BUN 13 (9-16) mg/dL Creatinine 0.69 (0.5-1.4) mg/dL Estim Creat Clear Calc 93.9 Estimated GFR > 60 Random Glucose 108 (60-115) mg/dL Calcium 8.5 (8.4-10.2) mg/dL Total Bilirubin 0.3 (0.0-1.0) mg/dL AST 24 (5-31) U/L ALT 21 (0-31) U/L Alkaline Phosphatase 79 (39-117) U/L Total Protein 7.0 (6.5-8.0) g/dL Albumin 3.6 (3.5-5.0) g/dL Urine Color Urine Appearance Urine pH (5.0-8.0) Ur Specific [place] (1.005-1.025) Urine Protein (Neg-Trace) mg/dL Urine Glucose (UA) (Negative) mg/dL Urine Ketones (Negative) mg/dL Urine Blood (Negative) Urine Nitrite (Negative) Ur Leukocyte Esterase (Negative) Urine Opiates Screen (Not Detect) Urine Fentanyl Screen (Not Detect) Ur Barbiturates Screen (Not Detect) Ur Phencyclidine Scrn (Not Detect) Ur Amphetamines Screen (Not Detect) U Benzodiazepines Scrn (Not Detect) Urine Cocaine Screen (Not Detect) U Marijuana (THC) Screen (Not Detect) Ethyl Alcohol < 10 mg/dL COVID-19 (EMMANUEL) (Negative) COVID-19 Clin Com <Erin Neville MD - Last Filed: 07/24/22 23:53> Critical Care Time Critical Care Time Critical Care Time: No <FARZANA Durbin - Last Filed: 07/25/22 00:33> Discharge Plan Discharge Clinical Impression: Bipolar disorder, unspecified, Major depressive disorder, Thrombocytopenia <FARZANA Durbin - Last Filed: 07/25/22 00:33> Patient Disposition: Admitted As Inpatient <FARZANA Durbin - Last Filed: 07/25/22 00:33>
[2022-07-24 17:21] LABS: COVID-19 Test Negative (Negative); IDNOW Serial# 16C4AD1C
[2022-07-24 17:24] LABS: Amphetamine Screen Urine Not Detected (Not Detect); Barbiturates, Urine POSITIVE (Not Detect); Benzodiazepines Screen Urine Not Detected (Not Detect); Cannabinoid Screen Urine Not Detected (Not Detect); Cocaine Screen Urine POSITIVE (Not Detect); Fentanyl, urine POSITIVE (Not Detect); Opiate Screen Urine POSITIVE (Not Detect); Phencyclidine Screen Urine Not Detected (Not Detect)
[2022-07-24 17:35] LABS: Appearance Urine Clear; Color Urine Yellow; Glucose Urine UA Negative (Negative); Leukocyte Esterase Urine Negative (Negative); Nitrite Urine Negative (Negative); Specific Gravity - Urine >= 1.030 (1.005-1.025); Urine Blood Negative (Negative); Urine Ketones Negative (Negative); Urine Protein Negative (Neg-Trace)
[2022-07-24 18:15] LABS: Alanine Aminotransferase 21 U/L (0-31); Albumin Level 3.6 g/dL (3.5-5.0); Alkaline Phosphatase 79 U/L (39-117); Anion Gap 17 (12-20); Aspartate Amino Transferase 24 U/L (5-31); Bilirubin Total 0.3 mg/dL (0.0-1.0); Blood Urea Nitrogen 13 mg/dL (9-16); Calcium 8.5 mg/dL (8.4-10.2); Carbon Dioxide 21 mmol/L (22-29); Chloride 105 mmol/L (96-108); Creatinine Clr Calc Pharmacy 93.9; Estimated Glomerular Filt Rate > 60; Ethanol < 10 mg/dL; Glucose Random 108 mg/dL (60-115); Potassium 4.6 mmol/L (3.3-5.1); Sodium 138 mmol/L (135-145)
--- NOTE | 2022-07-24 18:42 | PC.NURSE ---
client offered haldol for AH reported makes me twitchy need benadryl with notified provider
[2022-07-24 22:48] LABS: Basophils Percent Auto 0.1 % (0-2); Eosinophils Absolute Auto 0.1 X10*3/uL (0.0-0.4); Eosinophils Percent Auto 1.2 % (0-4); Hematocrit 34.3 % (37.0-47.0); Hemoglobin 11.4 g/dl (12.0-16.0); Imm Gran Abs Auto 0.01 X10*3/uL (0.00-0.03); Imm Gran Pct Auto 0.1 % (0.0-0.4); Lymphocytes Absolute Auto 4.6 X10*3/uL (1.2-4.9); Lymphocytes Percent Auto 54.4 % (20-40); MANUAL DIFF FLAG SCAN; Mean Corpuscular HGB Conc 33.2 g/dl (31.0-35.0); Mean Corpuscular Hemoglobin 28.4 pg (27.0-33.0); Mean Corpuscular Volume 85.5 fL (80.0-98.0); Mean Platelet Volume 11.8 fL (9.4-12.3); Monocytes Absolute Auto 0.6 X10*3/uL (0.1-1.2); Neutrophils Absolute Auto 3.1 x10*3/uL (2.0-8.3); Neutrophils Percent Auto 37.2 % (45-73); PLT CLUMP 1; Red Blood Count 4.01 X10*6/uL (4.20-5.50); Red Cell Distribution Width 14.6 % (11.0-16.0); SCAN SMEAR FLAG 1
[2022-07-24 22:49] LABS: Platelet Count 136 X10*3/uL (160-400); White Blood Count 8.4 X10*3/uL (4.8-10.8)
[2022-07-24 23:54] LABS: SLIDE REVIEW VERIFIED
[2022-07-25 01:10] VITALS: BP 140/94; PULSE 61; RESP 18; TEMP 36; O2SAT 100
[2022-07-25 01:17] VITALS: BMI 31.4
[2022-07-25] MEDS: QUEtiapine Fumarate 100 MG TABLET PO ×2 (01:19→20:36)
[2022-07-25] MEDS: Prazosin HCL 1 MG CAPSULE PO ×2 (01:19→20:36)
[2022-07-25] MEDS: Gabapentin 400 MG CAPSULE 800 MG PO ×4 (01:20→20:36)
--- NOTE | 2022-07-25 02:47 | PC.ADMIT ---
32 year old female [facility] and SI at 0050 on 07/25/2022 from [facility] [place]. Pt. referred by the CARE Team. Pt. had at least three known prior admissions to (2013, 2020, 2021). She was last admitted from 06/22/2022 to 07/02/2022. Previous admission to [place]. Pt. reports positive SI in response to command AH of a male voice telling her to kill herself. Pt. reports a vague plan but will not elaborate. Pt. contracts for safety on the unit. She denies HI and VH. Pt. is on 15 minute safety checks. Nurse to nurse and crisis evaluation completed prior to admission. Pt. signed a CV. Pt. reports a history of epilepsy treated with lamictal and phenobarbital. Last known seizure was about a month ago. Noncompliance with medications post recent discharge. Pt. reports taking medications for about a week after 07/02/2022 discharge. Admission VS: 140/94, 61, 100% on RA, RR18, T96.8. Weight 77.9kg. Pt. reports mild burning and discomfort when voiding. UA showed spec gravity >= 1.030.?Speech clear. Pt. presented with slightly anxious mood. She reports positive depression precipitated by daughter?s recent 12th birthday and limited involvement in her daughters? lives. Past history of suicide attempt years ago by adderall overdose. Prior to admission pt. reported plan was to jump off a bridge or lie down on train tracks. Tox screen positive for opiates, fentanyl, barbiturates and cocaine. Pt. reported using substances day before ER visit. Pt. is on 40mg methadone daily. Methadone form to be faxed to [facility] in the morning. Pt. took HS seroquel 100mg, gabapentin 800mg, prazosin 1mg, and phenobarbital 100mg. Pt. uses PCP services at [facility]. Doctor unknown. Pt. was calm and cooperative throughout admission. All admission paperwork completed.?
[2022-07-25] MEDS: lamoTRIgine 25 MG TABLET PO (09:39)
[2022-07-25 10:04] VITALS: BP 142/86; PULSE 69; RESP 16; TEMP 36.2; O2SAT 99
[2022-07-25] MEDS: methADONE HCl 20 MG/2 ML ORAL.CONC 40 MG PO (11:25)
[2022-07-25] MEDS: Acetaminophen 325 MG TABLET 650 MG PO (13:22)
[2022-07-25] MEDS: hydrOXYzine HCL 25 MG TABLET PO (13:22)
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
[2022-07-25 18:00] VITALS: BP 107/57; PULSE 74; TEMP 36.9; O2SAT 98
[2022-07-25 20:35] VITALS: BP 140/82; PULSE 18; RESP 18; TEMP 36.3; O2SAT 97
[2022-07-25] MEDS: Lurasidone HCl 40 MG TABLET PO (20:36)
--- NOTE | 2022-07-26 | ECG_ITS ---
Test Reason : cocaine use Blood Pressure : / mmHG Vent. Rate : 071 BPM Atrial Rate : 071 BPM P-R Int : 140 ms QRS Dur : 084 ms QT Int : 394 ms P-R-T Axes : 004 060 033 degrees QTc Int : 428 ms Normal sinus rhythm Normal ECG When compared with ECG of 24-JUL-2022 22:47, No significant change was found Referred By: Marcy Ansari Electronically Signed By:PIERRE PEPPER
[2022-07-26 06:00] VITALS: BP 128/72; PULSE 75; RESP 16; TEMP 36.9; O2SAT 97
[2022-07-26] MEDS: methADONE HCl 20 MG/2 ML ORAL.CONC 40 MG PO (10:00)
[2022-07-26] MEDS: Gabapentin 400 MG CAPSULE 800 MG PO ×3 (10:00→20:32)
[2022-07-26] MEDS: Clindamycin HCL 150 MG CAPSULE 450 MG PO ×2 (10:00→17:02)
--- NOTE | 2022-07-26 10:07 | PC.NURSE ---
Patient refused AM labs & EKG. aware.
[2022-07-26] MEDS: Acetaminophen 325 MG TABLET 650 MG PO (12:04)
[2022-07-26] MEDS: cloNIDine HCL 0.1 MG TABLET PO (12:05)
[2022-07-26] MEDS: chlorproMAZINE HCl 25 MG TABLET 50 MG PO (12:05)
[2022-07-26 12:08] VITALS: BP 124/78; PULSE 88
--- NOTE | 2022-07-26 16:45 | HO.ADDICTPRO ---
Subjective Subjective Date of Service: 07/26/22 Reason For Visit: Depression, ?OD sub abuse Interim History: Patient currently admitted to behavioral health unit with suicidal ideation. History of cocaine and opioid use, currently on methadone. Requesting dose increase Patient seen on M5, awake, alert and engaged in interview. Patient reports she was previously on methadone 75mg daily--chart review shows dose verification in June that states 65mg daily. She reports she was missing several days in a row at the [facility], so her dose had to be reduced. Currently at 40mg. She states she has the hardest time in the evenings, when she feels chills and body aches. Reports she has been using about 4 bags daily, which is a significant reduction from the 2 bundles she was previously using. She also reports cocaine use. Her goal is to continue to titrate back to therapeutic dose. EKG reviewed Review of Systems Constitutional: Reports as per HPI and Reports no additional constitutional complaints Mental Status Exam Mental Status Exam Patient Appearance: Well Grooomed and Appropriate Level of Consciousness: Awake and Appropriate Patient Behavior: Talkative and Cooperative Mood Description: Appropriate Speech Pattern: Clear Thought Process: Intact Judgement: Fair Diagnostics Vital Signs (24Hr): Vital Signs - 24 hr 07/25/22 18:00 07/25/22 20:35 07/26/22 06:00 Temperature 98.4 F 97.4 F 98.5 F Pulse Rate 74 18 L 75 Respiratory Rate 18 16 Blood Pressure 107/57 L 140/82 H 128/72 Pulse Oximetry 98 97 97 Oxygen Delivery Method Room Air Room Air 07/26/22 12:08 Temperature Pulse Rate 88 Respiratory Rate Blood Pressure 124/78 Pulse Oximetry Oxygen Delivery Method BMI result Body Mass Index 31.4 Labs Results: 07/24/22 22:29 07/24/22 17:49 Labs: Laboratory Results - last 48 hr 07/24/22 07/24/22 07/24/22 16:51 16:51 16:53 WBC RBC Hgb Hct MCV MCH MCHC RDW Plt Count MPV Immature Gran % (Auto) Neut % (Auto) Lymph % (Auto) [place] % (Auto) Eos % (Auto) Baso % (Auto) Lymph # (Auto) [place] # (Auto) Eos # (Auto) Baso # (Auto) Abs Immat Gran (auto) Absolute Neuts (auto) Absolute Nucleated RBC Nucleated RBC % (auto) Smear Tech's Comments Sodium Potassium Chloride Carbon Dioxide Anion Gap BUN Creatinine Estim Creat Clear Calc Estimated GFR Random Glucose Calcium Total Bilirubin AST ALT Alkaline Phosphatase Total Protein Albumin Urine Color Yellow Urine Appearance Clear Urine pH 6.0 Ur Specific Likely >= 1.030 H Urine Protein Negative Urine Glucose (UA) Negative Urine Ketones Negative Urine Blood Negative Urine Nitrite Negative Ur Leukocyte Esterase Negative Urine Opiates Screen POSITIVE H Urine Fentanyl Screen POSITIVE H Ur Barbiturates Screen POSITIVE H Ur Phencyclidine Scrn Not Detected Ur Amphetamines Screen Not Detected U Benzodiazepines Scrn Not Detected Urine Cocaine Screen POSITIVE H U Marijuana (THC) Screen Not Detected Ethyl Alcohol COVID-19 (EMMANUEL) Negative COVID-19 Clin Com See Note 07/24/22 07/24/22 17:49 22:29 WBC 8.4 RBC 4.01 L Hgb 11.4 L Hct 34.3 L MCV 85.5 MCH 28.4 MCHC 33.2 RDW 14.6 Plt Count 136 L D MPV 11.8 Immature Gran % (Auto) 0.1 Neut % (Auto) 37.2 L Lymph % (Auto) 54.[address] [place] % (Auto) 7.0 Eos % (Auto) 1.2 Baso % (Auto) 0.1 Lymph # (Auto) 4.6 [place] # (Auto) 0.6 Eos # (Auto) 0.1 Baso # (Auto) 0.0 Abs Immat Gran (auto) 0.01 Absolute Neuts (auto) 3.1 Absolute Nucleated RBC 0.000 Nucleated RBC % (auto) 0.0 Smear Tech's Comments VERIFIED Sodium 138 Potassium 4.6 Chloride 105 Carbon Dioxide 21 L Anion Gap 17 BUN 13 Creatinine 0.69 Estim Creat Clear Calc 93.9 Estimated GFR > 60 Random Glucose 108 Calcium 8.5 Total Bilirubin 0.3 AST 24 ALT 21 Alkaline Phosphatase 79 Total Protein 7.0 Albumin 3.6 Urine Color Urine Appearance Urine pH Ur Specific Likely Urine Protein Urine Glucose (UA) Urine Ketones Urine Blood Urine Nitrite Ur Leukocyte Esterase Urine Opiates Screen Urine Fentanyl Screen Ur Barbiturates Screen Ur Phencyclidine Scrn Ur Amphetamines Screen U Benzodiazepines Scrn Urine Cocaine Screen U Marijuana (THC) Screen Ethyl Alcohol < 10 COVID-19 (EMMANUEL) COVID-19 Clin Com Medications Medications Current Medications Acetaminophen (Acetaminophen 325 Mg Tablet) 650 mg PO Q6H PRN PRN Reason: Headache/Pain Mild Scale (1-3) Last Admin: 07/26/22 12:04 Dose: 650 mg Al Hydroxide/Mg Hydroxide (Magnesium Hydrox/Alum Hydrox 30 Ml Oral.Susp) 30 ml PO Q6H PRN PRN Reason: Heartburn/Nausea Chlorpromazine HCl (Chlorpromazine Hcl 25 Mg Tablet) 50 mg PO TID PRN PRN Reason: anxiety, agitation Last Admin: 07/26/22 12:05 Dose: 50 mg Clindamycin HCl (Clindamycin Hcl 150 Mg Capsule) 450 mg PO Q8H MURRAY Last Admin: 07/26/22 10:00 Dose: 450 mg Clonidine HCl (Clonidine Hcl 0.1 Mg Tablet) 0.1 mg PO TID PRN; Protocol PRN Reason: anxiety Last Admin: 07/26/22 12:05 Dose: 0.1 mg Gabapentin (Gabapentin 400 Mg Capsule) 800 mg PO TID MURRAY Last Admin: 07/26/22 14:08 Dose: 800 mg Hydroxyzine HCl (Hydroxyzine Hcl 25 Mg Tablet) 25 mg PO Q6H PRN PRN Reason: Anxiety Last Admin: 07/25/22 13:22 Dose: 25 mg Lamotrigine (Lamotrigine 25 Mg Tablet) 25 mg PO DAILY@1800 MURRAY Lurasidone HCl (Lurasidone Hcl 40 Mg Tablet) 40 mg PO BEDTIME MURRAY Last Admin: 07/25/22 20:36 Dose: 40 mg Magnesium Hydroxide (Milk Of Magnesia 30 Ml Oral.Susp) 30 ml PO DAILY PRN PRN Reason: Constipation Methadone HCl (Methadone Hcl 20 Mg/2 Ml Oral.Conc) 45 mg PO DAILY MURRAY Phenobarbital (Phenobarbital 100 Mg Tablet) 100 mg PO BEDTIME MURRAY Last Admin: 07/25/22 20:36 Dose: 100 mg Prazosin HCl (Prazosin Hcl 1 Mg Capsule) 1 mg PO BEDTIME MURRAY; Protocol Last Admin: 07/25/22 20:36 Dose: 1 mg Quetiapine Fumarate (Quetiapine Fumarate 100 Mg Tablet) 100 mg PO BEDTIME MURRAY Last Admin: 07/25/22 20:36 Dose: 100 mg Quetiapine Fumarate (Quetiapine Fumarate 100 Mg Tablet) 100 mg PO BEDTIME PRN PRN Reason: sleep Allergies Allergies Allergy/AdvReac Type Severity Reaction Status Date / Time No Known Allergies Allergy Verified 04/22/22 16:29 Assessment & Plan Assessment & Plan (1) Opioid use disorder: Status: Acute Code(s): F11.90 - Opioid use, unspecified, uncomplicated Assessment and Plan: increase methadone 5mg to 45mg QD will follow up as needed I spent __25____ minutes with the patient and/or on the patient floor today, greater than?50% of which was spent counseling/coordinating care.
[2022-07-26] MEDS: lamoTRIgine 25 MG TABLET PO (17:02)
--- NOTE | 2022-07-26 17:42 | P.PNPSI_ITS ---
Subjective Subjective Date of Service: 07/26/22 Reason For Visit: Depression, ?OD sub abuse Subjective Notes: Rivera Warning and Conditional Voluntary Healthcare Proxy: No Guardianship: No Medical Problems Affecting Mental Status: No Interim History: I spoke with pt's team and evaluated pt this evening. She saw culinary specialist, Frances Chaidez, went up 5 mg on methadone. Says the latuda is good. Continues to report withdrawal sx, Im sick, I dont even want to get up. Continue to report CAH, hears voices telling her to kill myself. Says I always want to go to bed so I dont hear it [the voices]. Still feels depressed. Medication Compliance: Yes Side effects from medications: No Attending Groups: No Review of Systems Acute medical concerns: No Medical Review of Systems: unchanged Mental Status Exam Mental Status Exam Narrative: Patient Appearance: Appropriate Patient Orientation: Person, Place, Time and Situation Level of Consciousness: Alert Patient Behavior: Appropriate and Talkative Mood Description: Withdrawn Affect Description: Flat Patient Cognition Impaired: No Ability to Follow Directions: Good Speech Pattern: Spontaneous Speech Memory Description: Intact Hallucinations: None Delusions: Not Present Perceptual Disturbances: Derealization Thought Process: Distracted Thought Content: positive for [place] and positive for Circumstantial Depressive Symptoms: Increased Irritability Judgement: Good Diagnostics Vital Signs (24Hr): Vital Signs - 24 hr 07/25/22 18:00 07/25/22 20:35 07/26/22 06:00 Temperature 98.4 F 97.4 F 98.5 F Pulse Rate 74 18 L 75 Respiratory Rate 18 16 Blood Pressure 107/57 L 140/82 H 128/72 Pulse Oximetry 98 97 97 Oxygen Delivery Method Room Air Room Air 07/26/22 12:08 Temperature Pulse Rate 88 Respiratory Rate Blood Pressure 124/78 Pulse Oximetry Oxygen Delivery Method BMI result Body Mass Index 31.4 Labs Results: 07/24/22 22:29 07/24/22 17:49 Labs: Laboratory Results - last 48 hr 07/24/22 07/24/22 17:49 22:29 WBC 8.4 RBC 4.01 L Hgb 11.4 L Hct 34.3 L MCV 85.5 MCH 28.4 MCHC 33.2 RDW 14.6 Plt Count 136 L D MPV 11.8 Immature Gran % (Auto) 0.1 Neut % (Auto) 37.2 L Lymph % (Auto) 54.4 H [place] % (Auto) 7.0 Eos % (Auto) 1.2 Baso % (Auto) 0.1 Lymph # (Auto) 4.6 [place] # (Auto) 0.6 Eos # (Auto) 0.1 Baso # (Auto) 0.0 Abs Immat Gran (auto) 0.01 Absolute Neuts (auto) 3.1 Absolute Nucleated RBC 0.000 Nucleated RBC % (auto) 0.0 Smear Tech's Comments VERIFIED Sodium 138 Potassium 4.6 Chloride 105 Carbon Dioxide 21 L Anion Gap 17 BUN 13 Creatinine 0.69 Estim Creat Clear Calc 93.9 Estimated GFR > 60 Random Glucose 108 Calcium 8.5 Total Bilirubin 0.3 AST 24 ALT 21 Alkaline Phosphatase 79 Total Protein 7.0 Albumin 3.6 Ethyl Alcohol < 10 Medications Medications Current Medications Acetaminophen (Acetaminophen 325 Mg Tablet) 650 mg PO Q6H PRN PRN Reason: Headache/Pain Mild Scale (1-3) Last Admin: 07/26/22 12:04 Dose: 650 mg Al Hydroxide/Mg Hydroxide (Magnesium Hydrox/Alum Hydrox 30 Ml Oral.Susp) 30 ml PO Q6H PRN PRN Reason: Heartburn/Nausea Chlorpromazine HCl (Chlorpromazine Hcl 25 Mg Tablet) 50 mg PO TID PRN PRN Reason: anxiety, agitation Last Admin: 07/26/22 12:05 Dose: 50 mg Clindamycin HCl (Clindamycin Hcl 150 Mg Capsule) 450 mg PO Q8H [facility] Last Admin: 07/26/22 17:02 Dose: 450 mg Clonidine HCl (Clonidine Hcl 0.1 Mg Tablet) 0.1 mg PO TID PRN; Protocol PRN Reason: anxiety Last Admin: 07/26/22 12:05 Dose: 0.1 mg Gabapentin (Gabapentin 400 Mg Capsule) 800 mg PO TID [facility] Last Admin: 07/26/22 14:08 Dose: 800 mg Hydroxyzine HCl (Hydroxyzine Hcl 25 Mg Tablet) 25 mg PO Q6H PRN PRN Reason: Anxiety Last Admin: 07/25/22 13:22 Dose: 25 mg Lamotrigine (Lamotrigine 25 Mg Tablet) 25 mg PO DAILY@1800 [facility] Last Admin: 07/26/22 17:02 Dose: 25 mg Lurasidone HCl (Lurasidone Hcl 40 Mg Tablet) 40 mg PO BEDTIME [facility] Last Admin: 07/25/22 20:36 Dose: 40 mg Magnesium Hydroxide (Milk Of Magnesia 30 Ml Oral.Susp) 30 ml PO DAILY PRN PRN Reason: Constipation Methadone HCl (Methadone Hcl 20 Mg/2 Ml Oral.Conc) 45 mg PO DAILY [facility] Phenobarbital (Phenobarbital 100 Mg Tablet) 100 mg PO BEDTIME [facility] Last Admin: 07/25/22 20:36 Dose: 100 mg Prazosin HCl (Prazosin Hcl 1 Mg Capsule) 1 mg PO BEDTIME [facility]; Protocol Last Admin: 07/25/22 20:36 Dose: 1 mg Quetiapine Fumarate (Quetiapine Fumarate 100 Mg Tablet) 100 mg PO BEDTIME [facility] Last Admin: 07/25/22 20:36 Dose: 100 mg Quetiapine Fumarate (Quetiapine Fumarate 100 Mg Tablet) 100 mg PO BEDTIME PRN PRN Reason: sleep Allergies Allergies Allergy/AdvReac Type Severity Reaction Status Date / Time No Known Allergies Allergy Verified 04/22/22 16:29 Assessment & Plan Assessment & Plan (1) Opioid use disorder: Status: Acute Code(s): F11.90 - Opioid use, unspecified, uncomplicated (2) Bipolar disorder, unspecified: Status: Acute Code(s): F31.9 - Bipolar disorder, unspecified (3) Major depressive disorder: Status: Acute Code(s): F32.9 - Major depressive disorder, single episode, unspecified Plan Jinny is a 32 y.o. Who carries a dx of Bipolar II disorder, polysubstance abuse. Utox positive for fentanyl, cocaine, opiates, and barbiturates (on phenobarb for seizures). She presented to [facility] on 07/24/22 due to Depression, SI with plan to jump off a bridge or fall asleep on a railroad track. She reports AH, VH and says this is a new onset. Reports the voices are command and tell her to kill herself. She relapsed on substances but stopped using cocaine a few days ago, although utox was positive. She has been med non-adherent and homeless since her discharge from [facility] on 07/02/22 for similar presentation. She has been adherent with methadone. Precipitating factors include missing her daughter?s 12th birthday. Plan: Start clindamycin for injection site abscesses. Says she likes seroquel for sleep and prazosin for nightmares. Pt agrees that lamictal is ?not the right med for me? due to hx of non-adherence. Start latuda 40 mg daily at 18:00 for mood stability, depression, AH.? 07/26: Methadone increased to 45 mg daily. Will continue latuda trial. Pt r emains in bed, somnolent, complains of withdrawal. Does not want med adjustments. Q15 min safety checks, CV Monitor response to medications. Monitor for safety in the milieu. Discharge on stabilization. Patient seen. Chart reviewed. Discussed with team. Obtain collateral contact info?as needed I spent minutes with the patient and/or on the patient floor today, great er than?50% of which was spent counseling/coordinating care. Patient educated on: diagnosis, medication risk/benefits and therapeutic strategies Reason for contiued inpatient stay Substantial Risk for: harm to self and med/psych decompensation
[2022-07-26 18:00] VITALS: BP 98/56; PULSE 73; RESP 18; TEMP 36.8; O2SAT 98
[2022-07-26] MEDS: Prazosin HCL 1 MG CAPSULE PO (20:32)
[2022-07-26] MEDS: Lurasidone HCl 40 MG TABLET PO (20:32)
[2022-07-26] MEDS: QUEtiapine Fumarate 100 MG TABLET PO (20:32)
[2022-07-27] MEDS: methADONE HCl 20 MG/2 ML ORAL.CONC 45 MG PO (09:07)
[2022-07-27] MEDS: chlorproMAZINE HCl 25 MG TABLET 50 MG PO ×2 (09:11→12:35)
[2022-07-27] MEDS: Gabapentin 400 MG CAPSULE 800 MG PO ×3 (09:12→22:02)
[2022-07-27] MEDS: Clindamycin HCL 150 MG CAPSULE 450 MG PO ×2 (09:12→18:46)
[2022-07-27 12:36] VITALS: BP 133/74; PULSE 92
[2022-07-27] MEDS: cloNIDine HCL 0.1 MG TABLET PO (12:36)
[2022-07-27] MEDS: lamoTRIgine 25 MG TABLET PO (18:46)
[2022-07-27 22:00] VITALS: BP 100/71; PULSE 93; RESP 14; TEMP 36.6; O2SAT 99
[2022-07-27] MEDS: Prazosin HCL 1 MG CAPSULE PO (22:02)
[2022-07-27] MEDS: QUEtiapine Fumarate 100 MG TABLET PO (22:02)
[2022-07-27] MEDS: Lurasidone HCl 40 MG TABLET PO (22:03)
--- NOTE | 2022-07-27 23:00 | HO.PSYCHPN ---
Subjective Subjective Date of Service: 07/27/22 Reason For Visit: Depression, ?OD sub abuse Subjective Notes: Rivera Warning Interim History: I spoke with pt's team, attempted to evaluate pt this evening, however she is asleep, does not wake up when attempted to rouse her, declines interview. Medication Compliance: Yes Side effects from medications: No Attending Groups: No Review of Systems Acute medical concerns: No Medical Review of Systems: unchanged Mental Status Exam Mental Status Exam Narrative: Patient Appearance: Appropriate Patient Orientation: Person, Place, Time and Situation Level of Consciousness: Alert Patient Behavior: Appropriate and Talkative Mood Description: Withdrawn Affect Description: Flat Patient Cognition Impaired: No Ability to Follow Directions: Good Speech Pattern: Spontaneous Speech Memory Description: Intact Hallucinations: None Delusions: Not Present Perceptual Disturbances: Derealization Thought Process: Distracted Thought Content: positive for [place] and positive for Circumstantial Depressive Symptoms: Increased Irritability Judgement: Good Diagnostics Vital Signs (24Hr): Vital Signs - 24 hr 07/27/22 12:36 07/27/22 22:00 Temperature 97.8 F Pulse Rate 92 93 Respiratory Rate 14 Blood Pressure 133/74 100/71 Pulse Oximetry 99 BMI result Body Mass Index 31.4 Labs Results: 07/24/22 22:29 07/24/22 17:49 Medications Medications Current Medications Acetaminophen (Acetaminophen 325 Mg Tablet) 650 mg PO Q6H PRN PRN Reason: Headache/Pain Mild Scale (1-3) Last Admin: 07/26/22 12:04 Dose: 650 mg Al Hydroxide/Mg Hydroxide (Magnesium Hydrox/Alum Hydrox 30 Ml Oral.Susp) 30 ml PO Q6H PRN PRN Reason: Heartburn/Nausea Chlorpromazine HCl (Chlorpromazine Hcl 25 Mg Tablet) 50 mg PO TID PRN PRN Reason: anxiety, agitation Last Admin: 07/27/22 12:35 Dose: 50 mg Clindamycin HCl (Clindamycin Hcl 150 Mg Capsule) 450 mg PO Q8H [facility] Last Admin: 07/27/22 18:46 Dose: 450 mg Clonidine HCl (Clonidine Hcl 0.1 Mg Tablet) 0.1 mg PO TID PRN; Protocol PRN Reason: anxiety Last Admin: 07/27/22 12:36 Dose: 0.1 mg Gabapentin (Gabapentin 400 Mg Capsule) 800 mg PO TID [facility] Last Admin: 07/27/22 22:02 Dose: 800 mg Hydroxyzine HCl (Hydroxyzine Hcl 25 Mg Tablet) 25 mg PO Q6H PRN PRN Reason: Anxiety Last Admin: 07/25/22 13:22 Dose: 25 mg Lamotrigine (Lamotrigine 25 Mg Tablet) 25 mg PO DAILY@1800 [facility] Last Admin: 07/27/22 18:46 Dose: 25 mg Lurasidone HCl (Lurasidone Hcl 40 Mg Tablet) 40 mg PO BEDTIME [facility] Last Admin: 07/27/22 22:03 Dose: 40 mg Magnesium Hydroxide (Milk Of Magnesia 30 Ml Oral.Susp) 30 ml PO DAILY PRN PRN Reason: Constipation Methadone HCl (Methadone Hcl 20 Mg/2 Ml Oral.Conc) 45 mg PO DAILY [facility] Last Admin: 07/27/22 09:07 Dose: 45 mg Phenobarbital (Phenobarbital 100 Mg Tablet) 100 mg PO BEDTIME [facility] Last Admin: 07/27/22 22:02 Dose: 100 mg Prazosin HCl (Prazosin Hcl 1 Mg Capsule) 1 mg PO BEDTIME [facility]; Protocol Last Admin: 07/27/22 22:02 Dose: 1 mg Quetiapine Fumarate (Quetiapine Fumarate 100 Mg Tablet) 100 mg PO BEDTIME [facility] Last Admin: 07/27/22 22:02 Dose: 100 mg Quetiapine Fumarate (Quetiapine Fumarate 100 Mg Tablet) 100 mg PO BEDTIME PRN PRN Reason: sleep Allergies Allergies Allergy/AdvReac Type Severity Reaction Status Date / Time No Known Allergies Allergy Verified 04/22/22 16:29 Assessment & Plan Assessment & Plan (1) Opioid use disorder: Status: Acute Code(s): F11.90 - Opioid use, unspecified, uncomplicated (2) Bipolar disorder, unspecified: Status: Acute Code(s): F31.9 - Bipolar disorder, unspecified (3) Major depressive disorder: Status: Acute Code(s): F32.9 - Major depressive disorder, single episode, unspecified Plan Jinny is a 32 y.o. Who carries a dx of Bipolar II disorder, polysubstance abuse. Utox positive for fentanyl, cocaine, opiates, and barbiturates (on phenobarb for seizures). She presented [place] [facility] on 07/24/22 due to Depression, SI with plan to jump off a bridge or fall asleep on a railroad track. She reports AH, VH and says this is a new onset. Reports the voices are command and tell her to kill herself. She relapsed on substances but stopped using cocaine a few days ago, although utox was positive. She has been med non-adherent and homeless since her discharge from [facility] on 07/02/22 for similar presentation. She has been adherent with methadone. Precipitating factors include missing her daughter?s 12th birthday. Plan: Start clindamycin for injection site abscesses. Says she likes seroquel for sleep and prazosin for nightmares. Pt agrees that lamictal is ?not the right med for me? due to hx of non-adherence. Start latuda 40 mg daily at 18:00 for mood stability, depression, AH.? 07/26: Methadone increased to 45 mg daily. Will continue latuda trial. Pt remains in bed, somnolent, complains of withdrawal. Does not want med adjustments. 07/27: No med changes, pt continues to complain of withdrawal and is somnolent Q15 min safety checks, CV Monitor response to medications. Monitor for safety in the milieu. Discharge on stabilization. Patient seen. Chart reviewed. Discussed with team. Obtain collateral contact info?as needed I spent minutes with the patient and/or on the patient floor today, greater than?50% of which was spent counseling/coordinating care. Patient educated on: other Reason for contiued inpatient stay Substantial Risk for: rapid decompensation and med/psych decompensation
[2022-07-28] MEDS: Clindamycin HCL 150 MG CAPSULE 450 MG PO ×2 (10:03→16:46)
[2022-07-28] MEDS: chlorproMAZINE HCl 25 MG TABLET 50 MG PO ×2 (10:03→11:22)
[2022-07-28] MEDS: Gabapentin 400 MG CAPSULE 800 MG PO ×3 (10:03→20:41)
[2022-07-28] MEDS: methADONE HCl 20 MG/2 ML ORAL.CONC 45 MG PO (10:04)
[2022-07-28] MEDS: cloNIDine HCL 0.1 MG TABLET PO (11:22)
[2022-07-28] MEDS: Loperamide HCl 2 MG CAPSULE 4 MG PO (14:38)
[2022-07-28] MEDS: Lurasidone HCl 40 MG TABLET PO (18:03)
--- NOTE | 2022-07-28 20:29 | P.PNPSI_ITS ---
Subjective Subjective Date of Service: 07/28/22 Reason For Visit: Depression, ?OD sub abuse Subjective Notes: Conditional Voluntary Healthcare Proxy: No Guardianship: No Medical Problems Affecting Mental Status: No Interim History: Reporting withdrawal with physical discomfort and irritability. Requests imodium. Discussed hx of using Methadone 75 mg and being dropped to a decreased dose too quickly. Will increase 45-50 mg on 07/28. Pt agrees Medication Compliance: Yes Side effects from medications: No Attending Groups: Intermittent Review of Systems Acute medical concerns: No Medical Review of Systems: unchanged Mental Status Exam Mental Status Exam Narrative: Patient Appearance: Appropriate Patient Orientation: Person, Place, Time and Situation Level of Consciousness: Alert Patient Behavior: Appropriate and Talkative Mood Description: Withdrawn Affect Description: Flat Patient Cognition Impaired: No Ability to Follow Directions: Good Speech Pattern: Spontaneous Speech Memory Description: Intact Hallucinations: None Delusions: Not Present Perceptual Disturbances: Derealization Thought Process: Distracted Thought Content: positive for [place] and positive for Circumstantial Depressive Symptoms: Increased Irritability Judgement: Good Diagnostics Vital Signs (24Hr): Vital Signs - 24 hr 07/27/22 22:00 Temperature 97.8 F Pulse Rate 93 Respiratory Rate 14 Blood Pressure 100/71 Pulse Oximetry 99 BMI result Body Mass Index 31.4 Labs Results: 07/24/22 22:29 07/24/22 17:49 Medications Medications Current Medications Acetaminophen (Acetaminophen 325 Mg Tablet) 650 mg PO Q6H PRN PRN Reason: Headache/Pain Mild Scale (1-3) Last Admin: 07/26/22 12:04 Dose: 650 mg Al Hydroxide/Mg Hydroxide (Magnesium Hydrox/Alum Hydrox 30 Ml Oral.Susp) 30 ml PO Q6H PRN PRN Reason: Heartburn/Nausea Chlorpromazine HCl (Chlorpromazine Hcl 25 Mg Tablet) 50 mg PO TID PRN PRN Reason: anxiety, agitation Last Admin: 07/28/22 11:22 Dose: 50 mg Clindamycin HCl (Clindamycin Hcl 150 Mg Capsule) 450 mg PO Q8H [facility] Last Admin: 07/28/22 16:46 Dose: 450 mg Clonidine HCl (Clonidine Hcl 0.1 Mg Tablet) 0.1 mg PO TID PRN; Protocol PRN Reason: anxiety Last Admin: 07/28/22 11:22 Dose: 0.1 mg Gabapentin (Gabapentin 400 Mg Capsule) 800 mg PO TID [facility] Last Admin: 07/28/22 14:38 Dose: 800 mg Hydroxyzine HCl (Hydroxyzine Hcl 25 Mg Tablet) 25 mg PO Q6H PRN PRN Reason: Anxiety Last Admin: 07/25/22 13:22 Dose: 25 mg Lurasidone HCl (Lurasidone Hcl 40 Mg Tablet) 40 mg PO DAILY@1800 [facility] Last Admin: 07/28/22 18:03 Dose: 40 mg Magnesium Hydroxide (Milk Of Magnesia 30 Ml Oral.Susp) 30 ml PO DAILY PRN PRN Reason: Constipation Methadone HCl (Methadone Hcl 20 Mg/2 Ml Oral.Conc) 50 mg PO DAILY [facility] Phenobarbital (Phenobarbital 100 Mg Tablet) 100 mg PO BEDTIME [facility] Last Admin: 07/27/22 22:02 Dose: 100 mg Prazosin HCl (Prazosin Hcl 1 Mg Capsule) 1 mg PO BEDTIME [facility]; Protocol Last Admin: 07/27/22 22:02 Dose: 1 mg Quetiapine Fumarate (Quetiapine Fumarate 100 Mg Tablet) 100 mg PO BEDTIME [facility] Last Admin: 07/27/22 22:02 Dose: 100 mg Quetiapine Fumarate (Quetiapine Fumarate 100 Mg Tablet) 100 mg PO BEDTIME PRN PRN Reason: sleep Allergies Allergies Allergy/AdvReac Type Severity Reaction Status Date / Time No Known Allergies Allergy Verified 04/22/22 16:29 Assessment & Plan Assessment & Plan (1) Opioid use disorder: Status: Acute Code(s): F11.90 - Opioid use, unspecified, uncomplicated (2) Bipolar disorder, unspecified: Status: Acute Code(s): F31.9 - Bipolar disorder, unspecified (3) Major depressive disorder: Status: Acute Code(s): F32.9 - Major depressive disorder, single episode, unspecified Plan Jinny is a 32 y.o. Who carries a dx of Bipolar II disorder, polysubstance abuse. Utox positive for fentanyl, cocaine, opiates, and barbiturates (on phenobarb for seizures). She presented to [facility] on 07/24/22 due to Depression, SI with plan to jump off a bridge or fall asleep on a railroad track. She reports AH, VH and says this is a new onset. Reports the voices are command and tell her to kill herself. She relapsed on substances but stopped using cocaine a few days ago, although utox was positive. She has been med non-adherent and homeless since her discharge from [facility] on 07/02/22 for similar presentation. She has been adherent with methadone. Precipitating factors include missing her daughter?s 12th birthday. Plan: Start clindamycin for injection site abscesses. Says she likes seroquel for sleep and prazosin for nightmares. Pt agrees that lamictal is ?not the right med for me? due to hx of non-adherence. Start latuda 40 mg daily at 18:00 for mood stability, depression, AH.? 07/26: Methadone increased to 45 mg daily. Will continue latuda trial. Pt remains in bed, somnolent, complains of withdrawal. Does not want med adjustments. 07/27: No med changes, pt continues to complain of withdrawal and is somnolent 07/28/22: Imodium prn. Increase Methadone to 50 mg on 07/29. Q15 min safety checks, CV Monitor response to medications. Monitor for safety in the milieu. Discharge on stabilization. Patient seen. Chart reviewed. Discussed with team. Obtain collateral contact info?as needed I spent minutes with the patient and/or on the patient floor today, greater than?50% of which was spent counseling/coordinating care. Patient educated on: therapeutic strategies Informed Consent: understands Reason for contiued inpatient stay Substantial Risk for: inability to function and rapid decompensation
[2022-07-28 20:30] VITALS: BP 104/56; PULSE 95; TEMP 36.4; O2SAT 99
[2022-07-28] MEDS: Prazosin HCL 1 MG CAPSULE PO (20:40)
[2022-07-28] MEDS: QUEtiapine Fumarate 100 MG TABLET PO (20:41)
[2022-07-29] MEDS: Acetaminophen 325 MG TABLET 650 MG PO (05:02)
[2022-07-29] MEDS: chlorproMAZINE HCl 25 MG TABLET 50 MG PO ×3 (05:02→18:28)
[2022-07-29] MEDS: hydrOXYzine HCL 25 MG TABLET PO (05:03)
[2022-07-29] MEDS: methADONE HCl 20 MG/2 ML ORAL.CONC 50 MG PO (09:21)
[2022-07-29] MEDS: Gabapentin 400 MG CAPSULE 800 MG PO ×3 (09:22→19:50)
[2022-07-29] MEDS: Clindamycin HCL 150 MG CAPSULE 450 MG PO ×3 (09:22→23:18)
[2022-07-29] MEDS: Loperamide HCl 2 MG CAPSULE 4 MG PO ×2 (13:28→19:50)
[2022-07-29] MEDS: cloNIDine HCL 0.1 MG TABLET PO (13:28)
[2022-07-29 18:00] VITALS: BP 120/58; PULSE 105; RESP 18; TEMP 36.5; O2SAT 98
[2022-07-29] MEDS: Lurasidone HCl 40 MG TABLET PO (18:47)
--- NOTE | 2022-07-29 19:30 | HO.PSYCHPN ---
Subjective Subjective Date of Service: 07/29/22 Reason For Visit: Depression, ?OD sub abuse Subjective Notes: Conditional Voluntary Healthcare Proxy: No Guardianship: No Medical Problems Affecting Mental Status: No Interim History: Med seeking behavior at times Reports anxiety- Gabapentin 100 mg tid prn ordered Abx timing changed with team to increase compliance Medication Compliance: Yes Side effects from medications: No Attending Groups: Yes Review of Systems Acute medical concerns: No Medical Review of Systems: unchanged Mental Status Exam Mental Status Exam Narrative: Patient Appearance: Appropriate Patient Orientation: Person, Place, Time and Situation Level of Consciousness: Alert Patient Behavior: Appropriate and Talkative Mood Description: Withdrawn Affect Description: Flat Patient Cognition Impaired: No Ability to Follow Directions: Good Speech Pattern: Spontaneous Speech Memory Description: Intact Hallucinations: None Delusions: Not Present Perceptual Disturbances: Derealization Thought Process: Distracted Thought Content: positive for [place] and positive for Circumstantial Depressive Symptoms: Increased Irritability Judgement: Good Diagnostics Vital Signs (24Hr): Vital Signs - 24 hr 07/28/22 20:30 07/29/22 18:00 Temperature 97.6 F 97.7 F Pulse Rate 95 105 H Respiratory Rate 18 Blood Pressure 104/56 L 120/58 L Pulse Oximetry 99 98 Oxygen Delivery Method Room Air BMI result Body Mass Index 31.4 Labs Results: 07/24/22 22:29 07/24/22 17:49 Medications Medications Current Medications Acetaminophen (Acetaminophen 325 Mg Tablet) 650 mg PO Q6H PRN PRN Reason: Headache/Pain Mild Scale (1-3) Last Admin: 07/29/22 05:02 Dose: 650 mg Al Hydroxide/Mg Hydroxide (Magnesium Hydrox/Alum Hydrox 30 Ml Oral.Susp) 30 ml PO Q6H PRN PRN Reason: Heartburn/Nausea Chlorpromazine HCl (Chlorpromazine Hcl 25 Mg Tablet) 50 mg PO TID PRN PRN Reason: anxiety, agitation Last Admin: 07/29/22 18:28 Dose: 50 mg Clindamycin HCl (Clindamycin Hcl 150 Mg Capsule) 450 mg PO 0700,1500,2300 [facility] Last Admin: 07/29/22 14:51 Dose: 450 mg Clonidine HCl (Clonidine Hcl 0.1 Mg Tablet) 0.1 mg PO TID PRN; Protocol PRN Reason: anxiety Last Admin: 07/29/22 13:28 Dose: 0.1 mg Gabapentin (Gabapentin 400 Mg Capsule) 800 mg PO TID [facility] Last Admin: 07/29/22 14:51 Dose: 800 mg Gabapentin (Gabapentin 100 Mg Capsule) 100 mg PO TID PRN PRN Reason: anxiety Hydroxyzine HCl (Hydroxyzine Hcl 25 Mg Tablet) 25 mg PO Q6H PRN PRN Reason: Anxiety Last Admin: 07/29/22 05:03 Dose: 25 mg Ibuprofen (Ibuprofen 600 Mg Tablet) 600 mg PO Q6H PRN PRN Reason: dental pain Loperamide HCl (Loperamide Hcl 2 Mg Capsule) 4 mg PO Q6H PRN PRN Reason: Diarrhea Last Admin: 07/29/22 13:28 Dose: 4 mg Lurasidone HCl (Lurasidone Hcl 40 Mg Tablet) 40 mg PO DAILY@1800 [facility] Last Admin: 07/29/22 18:47 Dose: 40 mg Magnesium Hydroxide (Milk Of Magnesia 30 Ml Oral.Susp) 30 ml PO DAILY PRN PRN Reason: Constipation Methadone HCl (Methadone Hcl 20 Mg/2 Ml Oral.Conc) 50 mg PO DAILY [facility] Last Admin: 07/29/22 09:21 Dose: 50 mg Phenobarbital (Phenobarbital 100 Mg Tablet) 100 mg PO BEDTIME [facility] Last Admin: 07/28/22 20:40 Dose: 100 mg Prazosin HCl (Prazosin Hcl 1 Mg Capsule) 1 mg PO BEDTIME [facility]; Protocol Last Admin: 07/28/22 20:40 Dose: 1 mg Quetiapine Fumarate (Quetiapine Fumarate 100 Mg Tablet) 100 mg PO BEDTIME [facility] Last Admin: 07/28/22 20:41 Dose: 100 mg Quetiapine Fumarate (Quetiapine Fumarate 100 Mg Tablet) 100 mg PO BEDTIME PRN PRN Reason: sleep Allergies Allergies Allergy/AdvReac Type Severity Reaction Status Date / Time No Known Allergies Allergy Verified 04/22/22 16:29 Assessment & Plan Assessment & Plan (1) Opioid use disorder: Status: Acute Code(s): F11.90 - Opioid use, unspecified, uncomplicated (2) Bipolar disorder, unspecified: Status: Acute Code(s): F31.9 - Bipolar disorder, unspecified (3) Major depressive disorder: Status: Acute Code(s): F32.9 - Major depressive disorder, single episode, unspecified Plan Jinny is a 32 y.o. Who carries a dx of Bipolar II disorder, polysubstance abuse. Utox positive for fentanyl, cocaine, opiates, and barbiturates (on phenobarb for seizures). She presented to [facility] on 07/24/22 due to Depression, SI with plan to jump off a bridge or fall asleep on a railroad track. She reports AH, VH and says this is a new onset. Reports the voices are command and tell her to kill herself. She relapsed on substances but stopped using cocaine a few days ago, although utox was positive. She has been med non-adherent and homeless since her discharge from [facility] on 07/02/22 for similar presentation. She has been adherent with methadone. Precipitating factors include missing her daughter?s 12th birthday. Plan: Start clindamycin for injection site abscesses. Says she likes seroquel for sleep and prazosin for nightmares. Pt agrees that lamictal is ?not the right med for me? due to hx of non-adherence. Start latuda 40 mg daily at 18:00 for mood stability, depression, AH.? 07/26: Methadone increased to 45 mg daily. Will continue latuda trial. Pt remains in bed, somnolent, complains of withdrawal. Does not want med adjustments. 07/27: No med changes, pt continues to complain of withdrawal and is somnolent 07/29/22: Gabapentin 100 mg tid prn ABX timing change to help improve compliance Q15 min safety checks, CV Monitor response to medications. Monitor for safety in the milieu. Discharge on stabilization. Patient seen. Chart reviewed. Discussed with team. Obtain collateral contact info?as needed I spent minutes with the patient and/or on the patient floor today, greater than?50% of which was spent counseling/coordinating care. Patient educated on: therapeutic strategies Informed Consent: understands Reason for contiued inpatient stay Substantial Risk for: harm to self, inability to function and rapid decompensation
[2022-07-29 19:45] VITALS: BP 124/70; PULSE 104
[2022-07-29] MEDS: QUEtiapine Fumarate 100 MG TABLET PO (19:49)
[2022-07-29] MEDS: Ibuprofen 600 MG TABLET PO (19:50)
[2022-07-29] MEDS: Prazosin HCL 1 MG CAPSULE PO (19:50)
[2022-07-30 06:00] VITALS: BP 88/50; PULSE 86; RESP 18; TEMP 36.9; O2SAT 99
[2022-07-30] MEDS: Gabapentin 400 MG CAPSULE 800 MG PO ×3 (08:43→20:38)
[2022-07-30] MEDS: methADONE HCl 20 MG/2 ML ORAL.CONC 50 MG PO (08:44)
[2022-07-30] MEDS: Clindamycin HCL 150 MG CAPSULE 450 MG PO ×2 (08:44→13:59)
[2022-07-30] MEDS: chlorproMAZINE HCl 25 MG TABLET 50 MG PO ×2 (09:09→13:59)
[2022-07-30] MEDS: Loperamide HCl 2 MG CAPSULE 4 MG PO (09:09)
[2022-07-30] MEDS: Gabapentin 100 MG CAPSULE PO ×2 (10:14→17:00)
[2022-07-30] MEDS: cloNIDine HCL 0.1 MG TABLET PO (10:14)
--- NOTE | 2022-07-30 10:35 | HO.PSYCHPN ---
Subjective Subjective Date of Service: 07/30/22 Reason For Visit: Depression, ?OD sub abuse Interim History: Patient lying in bed, awake; says she is not feeling very good due to withdrawal and agrees to increasing methadone to 60 mg with a 1 time now dose of 5 mg. She reports she Was on (70 or) 75 mg a few weeks ago but since she missed dosing apartments that dropped down to 50. Patient Laments relapsing and says she did so the day of her last discharge; she explained That as she proceeded to relapse she was simultaneously crying and upset with Herself, not wanting to Use but feeling unable to resist. Patient says she knows she needs a program in order to stay sober and regrets leaving last admission. Patient was started on Latuda but after discussion she agrees to starting lithium.. She reports continued depression and still feeling suicidal. Patient reports hearing auditory Hallucinations for the 1st time in her life around day of admission; says she hurt it again this morning and is worried about this new symptom Explained reason clindamycin was started Mental Status Exam Mental Status Exam Narrative: Pt is alert and oriented; behavior is cooperative but irritable and easily angered; patient in discomfort from withdrawal; dressed in casual attire, unkempt hair and poor hygiene; mood is described as depressed and affect congruent, downcast, scowl; limited eye contact; Speech is normal rate, volume and prosody and not pressured; psychomotor retardation present; thought process is organized and goal directed; Thought content is on inability to resist drug abuse; on tx; otherwise pertinent to relevant topics and without any delusional content, paranoid ideations or grandiosity; +SI/no HI. Intermittent AH; Patients insight and judgment impaired. Diagnostics Vital Signs (24Hr): Vital Signs - 24 hr 07/29/22 18:00 07/29/22 19:45 07/30/22 06:00 Temperature 97.7 F 98.4 F Pulse Rate 105 H 104 H 86 Respiratory Rate 18 18 Blood Pressure 120/58 L 124/70 88/50 L Pulse Oximetry 98 99 Oxygen Delivery Method Room Air Room Air BMI result Body Mass Index 31.4 Labs Results: 07/24/22 22:29 07/24/22 17:49 Medications Medications Current Medications Acetaminophen (Acetaminophen 325 Mg Tablet) 650 mg PO Q6H PRN PRN Reason: Headache/Pain Mild Scale (1-3) Last Admin: 07/29/22 05:02 Dose: 650 mg Al Hydroxide/Mg Hydroxide (Magnesium Hydrox/Alum Hydrox 30 Ml Oral.Susp) 30 ml PO Q6H PRN PRN Reason: Heartburn/Nausea Chlorpromazine HCl (Chlorpromazine Hcl 25 Mg Tablet) 50 mg PO TID PRN PRN Reason: anxiety, agitation Last Admin: 07/30/22 09:09 Dose: 50 mg Clindamycin HCl (Clindamycin Hcl 150 Mg Capsule) 450 mg PO 0700,1500,2300 [facility] Last Admin: 07/30/22 08:44 Dose: 450 mg Clonidine HCl (Clonidine Hcl 0.1 Mg Tablet) 0.1 mg PO TID PRN; Protocol PRN Reason: anxiety Last Admin: 07/30/22 10:14 Dose: 0.1 mg Gabapentin (Gabapentin 400 Mg Capsule) 800 mg PO TID [facility] Last Admin: 07/30/22 08:43 Dose: 800 mg Gabapentin (Gabapentin 100 Mg Capsule) 100 mg PO TID PRN PRN Reason: anxiety Last Admin: 07/30/22 10:14 Dose: 100 mg Hydroxyzine HCl (Hydroxyzine Hcl 25 Mg Tablet) 25 mg PO Q6H PRN PRN Reason: Anxiety Last Admin: 07/29/22 05:03 Dose: 25 mg Ibuprofen (Ibuprofen 600 Mg Tablet) 600 mg PO Q6H PRN PRN Reason: dental pain Last Admin: 07/29/22 19:50 Dose: 600 mg Loperamide HCl (Loperamide Hcl 2 Mg Capsule) 4 mg PO Q6H PRN PRN Reason: Diarrhea Last Admin: 07/30/22 09:09 Dose: 4 mg Lurasidone HCl (Lurasidone Hcl 40 Mg Tablet) 40 mg PO DAILY@1800 [facility] Last Admin: 07/29/22 18:47 Dose: 40 mg Magnesium Hydroxide (Milk Of Magnesia 30 Ml Oral.Susp) 30 ml PO DAILY PRN PRN Reason: Constipation Methadone HCl (Methadone Hcl 20 Mg/2 Ml Oral.Conc) 50 mg PO DAILY [facility] Last Admin: 07/30/22 08:44 Dose: 50 mg Phenobarbital (Phenobarbital 100 Mg Tablet) 100 mg PO BEDTIME [facility] Last Admin: 07/29/22 19:50 Dose: 100 mg Prazosin HCl (Prazosin Hcl 1 Mg Capsule) 1 mg PO BEDTIME [facility]; Protocol Last Admin: 07/29/22 19:50 Dose: 1 mg Quetiapine Fumarate (Quetiapine Fumarate 100 Mg Tablet) 100 mg PO BEDTIME [facility] Last Admin: 07/29/22 19:49 Dose: 100 mg Quetiapine Fumarate (Quetiapine Fumarate 100 Mg Tablet) 100 mg PO BEDTIME PRN PRN Reason: sleep Allergies Allergies Allergy/AdvReac Type Severity Reaction Status Date / Time No Known Allergies Allergy Verified 04/22/22 16:29 Assessment & Plan Assessment & Plan (1) Opioid use disorder: Status: Acute Code(s): F11.90 - Opioid use, unspecified, uncomplicated (2) Bipolar disorder, unspecified: Status: Acute Code(s): F31.9 - Bipolar disorder, unspecified (3) Major depressive disorder: Status: Acute Code(s): F32.9 - Major depressive disorder, single episode, unspecified Plan Jinny is a 32 y.o. Who carries a dx of Bipolar II disorder, polysubstance abuse. Utox positive for fentanyl, cocaine, opiates, and barbiturates (on phenobarb for seizures). She presented to [facility] on 07/24/22 due to Depression, SI with plan to jump off a bridge or fall asleep on a railroad track. She reports AH, VH and says this is a new onset. Reports the voices are command and tell her to kill herself. She relapsed on substances but stopped using cocaine a few days ago, although utox was positive. She has been med non-adherent and homeless since her discharge from [facility] on 07/02/22 for similar presentation. She has been adherent with methadone. Precipitating factors include missing her daughter?s 12th birthday. 07/30 Patient remains depressed with SI; agrees to discontinue Latuda in favor of lithium Plan: CV Q 15 minute checks abscess/injection site Started on Clindamycin HCl 450 mg PO 0700,1500,2300 [facility] stop date: Bipolar disorder Start lithium ER 300 mg q.h.s. (risks/side effects covered with patient) DC Latuda (unlikely insurance would cover); lamictal is ?not the right med for me? due to hx of non-adherenc PTSD/mood/anxiety prazosin for nightmares Gabapentin 100 mg tid prn Chlorpromazine 50 mg PO TID PRN Clonidine 0.1 mg PO TID PRN; Protocol Opioid use disorder 07/26: Methadone increased to 45 mg daily 07/30 Methadone 5 mg 1 time dose for withdrawal symptoms and titration Increase methadone to 60 mg daily (patient used to be on 75 there bouts) added Dicyclomine/Cyclobenzaprine As p.r.n. otherwise: Q15 min safety checks, CV Monitor response to medications. Monitor for safety in the milieu. Discharge on stabilization. Patient seen. Chart reviewed. Discussed with team. Obtain collateral contact info?as needed I spent minutes with the patient and/or on the patient floor today, greater than?50% of which was spent counseling/coordinating care. Patient educated on: diagnosis, medication risk/benefits, substance abuse and medical condition Informed Consent: understands Reason for contiued inpatient stay Substantial Risk for: harm to self and rapid decompensation
[2022-07-30] MEDS: Ibuprofen 600 MG TABLET PO (11:29)
[2022-07-30] MEDS: methADONE HCl 20 MG/2 ML ORAL.CONC 5 MG PO (16:53)
[2022-07-30] MEDS: Dicyclomine HCl 10 MG CAPSULE PO (16:53)
[2022-07-30] MEDS: hydrOXYzine HCL 25 MG TABLET PO (17:00)
[2022-07-30 20:35] VITALS: BP 106/63; PULSE 97; TEMP 36.2
[2022-07-30] MEDS: Lithium Carbonate ER 300 MG TABLET.ER PO (20:37)
[2022-07-30] MEDS: QUEtiapine Fumarate 100 MG TABLET PO (20:39)
[2022-07-30] MEDS: Prazosin HCL 1 MG CAPSULE PO (20:39)
[2022-07-31] MEDS: Clindamycin HCL 150 MG CAPSULE 450 MG PO ×4 (00:26→20:13)
[2022-07-31] MEDS: QUEtiapine Fumarate 100 MG TABLET PO ×3 (00:38→20:13)
[2022-07-31 06:00] VITALS: BP 131/78; PULSE 79; RESP 18; TEMP 36.7; O2SAT 97
[2022-07-31] MEDS: Gabapentin 400 MG CAPSULE 800 MG PO ×3 (09:27→19:08)
[2022-07-31] MEDS: chlorproMAZINE HCl 25 MG TABLET 50 MG PO ×3 (09:27→18:16)
[2022-07-31] MEDS: methADONE HCl 20 MG/2 ML ORAL.CONC 60 MG PO (09:27)
[2022-07-31] MEDS: hydrOXYzine HCL 25 MG TABLET PO (10:03)
[2022-07-31] MEDS: Cyclobenzaprine HCl 10 MG TABLET PO (10:03)
[2022-07-31] MEDS: cloNIDine HCL 0.1 MG TABLET PO ×2 (10:03→13:58)
--- NOTE | 2022-07-31 10:33 | HO.PSYCHPN ---
Subjective Subjective Date of Service: 07/31/22 Reason For Visit: Depression, ?OD sub abuse Interim History: Patient reports increased methadone very helpful. Patient irritable today with high acuity on the unit; initially she wanted discharge today but instead she said she would remain and try to get into a program if she could tolerate being on the unit which she says currently is very triggering for her. Further discussed substance abuse and patient knows she remains vulnerable to relapse but Patient says she does have sober friends with whom she can stay and can also hang out at the [facility] during the day; she says if she is able to remain sober she can get into the program as an outpatient. Assistant Director Of [employer] explains risks of this plan and patient agrees it is better to remain on the unit and get into a program from here; she says she will if she can tolerate it. SI resolved. Tolerating medications. Feels clonidine is most helpful and agrees to having it scheduled. Reviewed history and patient denies ever having any suicide attempt in the past; she also reports she never abuses her medications and is careful to not combined them when she relapses. Mental Status Exam Mental Status Exam Narrative: Pt is alert and oriented; behavior is cooperative, frustrated but calm; dressed in casual attire, unkempt hair and marginal hygiene; mood is described as stressed and affect congruent; appropriate eye contact; Speech is normal rate, volume and prosody and not pressured; no psychomotor retardation; thought process is organized and goal directed; Thought content is on challenges on unit, treatment; otherwise pertinent to relevant topics and without any delusional content, paranoid ideations or grandiosity; No SI/no HI. No AH; Patients insight and judgment improved and adequate. Diagnostics Vital Signs (24Hr): Vital Signs - 24 hr 07/30/22 20:35 07/31/22 06:00 Temperature 97.2 F 98.0 F Pulse Rate 97 79 Respiratory Rate 18 Blood Pressure 106/63 131/78 Pulse Oximetry 97 BMI result Body Mass Index 31.4 Labs Results: 07/24/22 22:29 07/24/22 17:49 Medications Medications Current Medications Acetaminophen (Acetaminophen 325 Mg Tablet) 650 mg PO Q6H PRN PRN Reason: Headache/Pain Mild Scale (1-3) Last Admin: 07/29/22 05:02 Dose: 650 mg Al Hydroxide/Mg Hydroxide (Magnesium Hydrox/Alum Hydrox 30 Ml Oral.Susp) 30 ml PO Q6H PRN PRN Reason: Heartburn/Nausea Chlorpromazine HCl (Chlorpromazine Hcl 25 Mg Tablet) 50 mg PO TID PRN PRN Reason: anxiety, agitation Last Admin: 07/31/22 09:27 Dose: 50 mg Clindamycin HCl (Clindamycin Hcl 150 Mg Capsule) 450 mg PO 0700,1500,2300 [facility] Last Admin: 07/31/22 09:27 Dose: 450 mg Clonidine HCl (Clonidine Hcl 0.1 Mg Tablet) 0.1 mg PO TID PRN; Protocol PRN Reason: anxiety Last Admin: 07/31/22 10:03 Dose: 0.1 mg Cyclobenzaprine HCl (Cyclobenzaprine Hcl 10 Mg Tablet) 10 mg PO TID PRN PRN Reason: muscle cramps Last Admin: 07/31/22 10:03 Dose: 10 mg Dicyclomine HCl (Dicyclomine Hcl 10 Mg Capsule) 10 mg PO TID PRN PRN Reason: stomach aches Gabapentin (Gabapentin 400 Mg Capsule) 800 mg PO TID [facility] Last Admin: 07/31/22 09:27 Dose: 800 mg Gabapentin (Gabapentin 100 Mg Capsule) 100 mg PO TID PRN PRN Reason: anxiety Last Admin: 07/30/22 17:00 Dose: 100 mg Hydroxyzine HCl (Hydroxyzine Hcl 25 Mg Tablet) 25 mg PO Q6H PRN PRN Reason: Anxiety Last Admin: 07/31/22 10:03 Dose: 25 mg Ossian Carbonate (Ossian Carbonate Er 300 Mg Tablet.Er) 600 mg PO BEDTIME [facility] Loperamide HCl (Loperamide Hcl 2 Mg Capsule) 4 mg PO Q6H PRN PRN Reason: Diarrhea Last Admin: 07/30/22 09:09 Dose: 4 mg Magnesium Hydroxide (Milk Of Magnesia 30 Ml Oral.Susp) 30 ml PO DAILY PRN PRN Reason: Constipation Methadone HCl (Methadone Hcl 20 Mg/2 Ml Oral.Conc) 60 mg PO DAILY [facility] Last Admin: 07/31/22 09:27 Dose: 60 mg Phenobarbital (Phenobarbital 100 Mg Tablet) 100 mg PO BEDTIME [facility] Last Admin: 07/30/22 20:38 Dose: 100 mg Prazosin HCl (Prazosin Hcl 1 Mg Capsule) 1 mg PO BEDTIME [facility]; Protocol Last Admin: 07/30/22 20:39 Dose: 1 mg Quetiapine Fumarate (Quetiapine Fumarate 100 Mg Tablet) 100 mg PO BEDTIME [facility] Last Admin: 07/30/22 20:39 Dose: 100 mg Quetiapine Fumarate (Quetiapine Fumarate 100 Mg Tablet) 100 mg PO BEDTIME PRN PRN Reason: sleep Last Admin: 07/31/22 00:38 Dose: 100 mg Allergies Allergies Allergy/AdvReac Type Severity Reaction Status Date / Time No Known Allergies Allergy Verified 04/22/22 16:29 Assessment & Plan Assessment & Plan (1) Opioid use disorder: Status: Acute Code(s): F11.90 - Opioid use, unspecified, uncomplicated (2) Bipolar disorder, unspecified: Status: Acute Code(s): F31.9 - Bipolar disorder, unspecified (3) Major depressive disorder: Status: Acute Code(s): F32.9 - Major depressive disorder, single episode, unspecified Plan Jinny is a 32 y.o. Who carries a dx of Bipolar II disorder, polysubstance abuse. Utox positive for fentanyl, cocaine, opiates, and barbiturates (on phenobarb for seizures). She presented to [facility] on 07/24/22 due to Depression, SI with plan to jump off a bridge or fall asleep on a railroad track. She reports AH, VH and says this is a new onset. Reports the voices are command and tell her to kill herself. She relapsed on substances but stopped using cocaine a few days ago, although utox was positive. She has been med non-adherent and homeless since her discharge from [facility] on 07/02/22 for similar presentation. She has been adherent with methadone. Precipitating factors include missing her daughter?s 12th birthday. 07/30 Patient remains depressed with SI; agrees to discontinue Latuda in favor of lithium 07/31 Patient reports increased methadone very helpful. Patient frustrated today with high acuity on the unit however has been able to remain in good behavioral control; initially she wanted discharge today but instead she said she would remain and try to get into a program if she could tolerate being on the unit. Plan: CV Q 15 minute checks abscess/injection site Started on Clindamycin HCl 450 mg PO 0700,1500,2300 [facility] stop date: Bipolar disorder Cpmtoniue lithium ER 300 mg q.h.s. (risks/side effects covered with patient) Labs ordered DC Ne[facility] (unlikely insurance would cover); lamictal is ?not the right med for me? due to hx of non-adherenc PTSD/mood/anxiety prazosin 1mg qhs for nightmares Gabapentin 100 mg tid prn Chlorpromazine 50 mg PO TID PRN (also 25mg available for milder anxiety that won't make as tired) Schedule Clonidine 0.1mg BID@0900,1400 Clonidine 0.1 mg PO TID PRN; Protocol Opioid use disorder Increase methadone to 60 mg daily (patient used to be on 75 there bouts; 07/26 Methadone increased to 45 mg; 07/30 Methadone increased to 60mg) added Dicyclomine/Cyclobenzaprine As p.r.n. for withdrawal otherwise: Q15 min safety checks, CV Monitor response to medications. Monitor for safety in the milieu. Discharge on stabilization. Patient seen. Chart reviewed. Discussed with team. Obtain collateral contact info?as needed I spent minutes with the patient and/or on the patient floor today, greater than?50% of which was spent counseling/coordinating care. Patient educated on: diagnosis, medication risk/benefits, substance abuse and therapeutic strategies Informed Consent: understands Reason for contiued inpatient stay Substantial Risk for: stable for discharge
[2022-07-31 19:08] VITALS: BP 125/69; PULSE 99; TEMP 36.8
[2022-07-31] MEDS: Lithium Carbonate ER 300 MG TABLET.ER 600 MG PO (19:09)
[2022-07-31] MEDS: Prazosin HCL 1 MG CAPSULE PO (19:12)
[2022-08-01 06:00] VITALS: BP 111/70; PULSE 86; RESP 16
[2022-08-01] MEDS: methADONE HCl 20 MG/2 ML ORAL.CONC 60 MG PO (08:46)
[2022-08-01] MEDS: Gabapentin 400 MG CAPSULE 800 MG PO (08:46)
[2022-08-01] MEDS: Clindamycin HCL 150 MG CAPSULE 450 MG PO (08:46)
[2022-08-01] MEDS: cloNIDine HCL 0.1 MG TABLET PO ×3 (08:47→13:29)
[2022-08-01] MEDS: chlorproMAZINE HCl 25 MG TABLET 50 MG PO ×2 (09:15→13:07)
[2022-08-01 11:51] VITALS: BP 102/62; PULSE 89
[2022-08-01] MEDS: Gabapentin 100 MG CAPSULE PO (11:51)
--- NOTE | 2022-08-01 12:30 | MHC.RECOVRN ---
Met with pt to follow up regarding methadone. Upon entering, pt laying in bed sleeping, wakes to voice. Pt drowsy and irritated that t/w was not there to discharge pt. When discussing methadone, pt is interested in an increase due to anxiety, diarrhea, diaphoresis. Pt did not appear diaphoretic, was laying in bed, did not observe restlessness. Pt encouraged to follow up with [facility] since pt believes discharge to be imminent. Discussed with Frances Chaidez APRN.
[2022-08-01] MEDS: hydrOXYzine HCL 25 MG TABLET PO (13:07)
[2022-08-01 13:33] VITALS: BP 108/60; PULSE 81
--- NOTE | 2022-08-01 13:34 | PM.PSYDC ---
DS: Providers Provider Date of Service: 08/01/22 Date of admission: 07/25/22 00:21 Date of discharge: 08/01/22 Primary care physician: Unknown Physician Admitting clinician: Marcy Ansari Consults: 07/25/22 17:58 Addiction Medicine Routine Consulting Provider: Frances Chaidez Reason for consultation: wants an increase in methadone Attending physician on discharge: Jim Okeefe DS: Diagnosis Discharge Diagnosis (1) Opioid use disorder: Status: Acute (2) Bipolar disorder, unspecified: Status: Acute (3) Major depressive disorder: Status: Acute DS: Medications Discharge Medications Home Medications: Home Medications Medication Instructions Recorded Confirmed methadone 10 mg/mL oral 40 mg PO DAILY 07/24/22 concentrate (Methadose) Previous Rx's Medication Instructions Recorded gabapentin 800 mg tablet 800 mg PO TID #21 tabs 07/02/22 lamotrigine 25 mg tablet 25 mg PO DAILY #14 tabs 07/02/22 phenobarbital 100 mg tablet 100 mg PO BEDTIME #7 tabs 07/02/22 quetiapine 100 mg tablet (Seroquel) 100 mg PO BEDTIME #14 tabs 07/02/22 trazodone 100 mg tablet 100 mg PO BEDTIME #7 tabs 07/02/22 clindamycin HCl 150 mg capsule 450 mg PO 0700,1500,2300 7 days 08/01/22 #63 caps clonidine HCl 0.1 mg tablet 0.1 mg PO BID@0900,1400 30 days 08/01/22 #60 tabs prazosin 1 mg capsule 1 mg PO BEDTIME 30 days #30 caps 08/01/22 Mental Status Exam Mental Status Exam Narrative: Pt is alert and oriented; behavior is cooperative, calm; dressed in casual attire, adequate hygiene; mood is described as good and affect congruent; appropriate eye contact; Speech is normal rate, volume and prosody and not pressured; no psychomotor retardation; thought process is organized and goal directed; Thought content is on discharge, treatment; otherwise pertinent to relevant topics and without any delusional content, paranoid ideations or grandiosity; No SI/no HI. No AH; Patients insight and judgment improved and adequate. DS: Summary Hospital Course Hospital Course: Jinny is a 32 y.o. Who carries a dx of Bipolar II disorder, polysubstance abuse. Utox positive for fentanyl, cocaine, opiates, and barbiturates (on phenobarb for seizures). She presented to [facility] on 07/24/22 due to Depression, SI with plan to jump off a bridge or fall asleep on a railroad track. She reports AH, VH and says this is a new onset. Reports the voices are command and tell her to kill herself. She relapsed on substances but stopped using cocaine a few days ago, although utox was positive. She has been med non-adherent and homeless since her discharge from [facility] on 07/02/22 for similar presentation. She has been adherent with methadone. Precipitating factors include missing her daughter?s 12th birthday. On admission, patient was depressed with passive SI which soon resolved. She reported a brief moment of AH which then resolved and did not return; patient said this has never happened before and agrees with ghost writer that it is it most likely mood congruent. She was initially started on Latuda but changed to lithium (discussed risks/side effects including but not limited to not taking NSAIDs, staying hydrated). She was started on Clindamycin HCl for cellulitis/abcess Patient's methadone was also increased which was helpful. Patient's mood significantly improved and depression abated. SI remained fully resolved and patient explained she has never had a suicide attempt. Patient had some bouts of irritability on the unit due to its high acuity, however she remained in good behavioral control. Patient wanted to go to a treatment program, wishing she had done so at her last admission. Applications were made however patient started having doubts about it and came up with another plan to go and live with a sober friend and go to the [facility] which has daytime programs and meetings; she says that if she remains sober which she plans to, she can apply to the inpatient program from there. Customer Service Representative Teacher discussed risks of this plan and her high vulnerability to relapse. Patient minimizes some of the risk but says she understands that she is vulnerable; still she remains adamant that she prefers discharged to the community rather than waiting for admission on the unit. Customer Service Representative Teacher discussed lithium and need to come in for lab work to assess its level and kidney function which she understood and said she would come in for lab work. Given patient's history and struggles with substance abuse, she remains at risk for both relapse and subsequent decompensation. However these issues are chronic and will not resolve by staying longer on the unit; rather they require consistent long-term outpatient therapy/programs and sobriety. Patient understands this and says she very much wants to stay sober and will engage in outpatient treatment. Customer Service Representative Teacher agrees that patient is at her baseline. She is not in imminent risk for harm to self or others and her request for discharge honored. Patient asked for 30 day scripts instead of 7 days scripts which she has been getting on her previous discharges from this unit. Patient says that it is difficult for her to get to the pharmacy since she relies on others for transportation and this causes her to miss some of her medication refills. Patient's outpatient prescriber has been prescribing these same medications and 30 day supplies. While patient is on phenobarbital and gabapentin, both for seizure disorder and both problematic in overdose or abuse, patient denies ever abusing her her prescribed medications and says she is very careful about taking them appropriately. She also denies any history of suicide attempt. While ghost writer understands the reasoning to give only 7 days scripts, the risk of patient missing her medications is concerning and at this time, ghost writer agrees that it is in patient's best interest to have a months worth of medications with her. Time spent discussing smoking cessation with patient: 3 to 10 minutes Status at Discharge Functional status at discharge: independent ambulation Overall status at discharge: patient is back to baseline Time Spent with Patient Time attestation: Total time spent providing and/or coordinating discharge services: Time spent: Greater than 30 minutes Discharge Plan Discharge Patient Disposition: Nursing Home Discharge Diagnosis: Bipolar disorder, recurrent, moderate, most recent episode depressed; in full remission Referrals: Physician,Unknown J [Primary Care Provider] - 1 Week ([facility] aware of d/c left a brief message to call us back w f/u appointment, Or pt.) Discharge Medications: New clindamycin HCl 150 mg Capsule 450 mg PO 0700,1500,2300 7 Days Qty: 63 0RF clonidine HCl 0.1 mg Tablet 0.1 mg PO BID@0900,1400 30 Days Qty: 60 0RF Protocol: Hold for SBP< HOLD for SBP < : 90 methadone [Methadose] 10 mg/mL Concentrate 60 mg PO DAILY Qty: 0 0RF Rx Instructions: Partial Fill upon patient request. chlorpromazine 50 mg tablet 50 mg PO TID PRN (Reason: agitation) 30 Days Qty: 30 0RF lithium carbonate 300 mg Tablet Extended Release 600 mg PO BEDTIME 30 Days Qty: 60 0RF Continued prazosin 1 mg capsule 1 mg PO BEDTIME 30 Days Qty: 30 0RF phenobarbital 100 mg Tablet 100 mg PO BEDTIME 30 Days Qty: 30 0RF gabapentin 800 mg tablet 800 mg PO TID 30 Days Qty: 90 0RF quetiapine [Seroquel] 100 mg tablet 100 mg PO BEDTIME 30 Days Qty: 30 0RF Discontinued lamotrigine 25 mg Tablet 25 mg PO DAILY Qty: 14 1RF trazodone 100 mg tablet 100 mg PO BEDTIME Qty: 7 4RF methadone [Methadose] 10 mg/mL concentrate 40 mg PO DAILY Rx Instructions: Partial Fill upon patient request. Discharge Orders: Discharge Order (Routine); Ordered 08/01/22 Ordered By: Jim Okeefe Diet: Regular diet Activity on Discharge: As tolerated Stand Alone Forms: Patient Portal Discharge page, Community Support Other Ambulatory Orders: Blood Urea Nitrogen (Routine) Timeframe: 20220806 Facility: [facility] - Location: Laboratory Ordered By: Jim Okeefe Creatinine (Routine) Timeframe: 20220806 Facility: [facility] - Location: Laboratory Ordered By: Jim Okeefe [place] (Routine) Timeframe: 20220806 Facility: [facility] - Location: Laboratory Ordered By: Jim Okeefe TSH reflex Free T4 (Routine) Timeframe: 20220806 Facility: [facility] - Location: Laboratory Ordered By: Jim Okeefe Care Plan Goals: Maintain mood and safe behaviors Take medications as prescribed Continue to pursue sobriety Practice coping skills Continue with outpatient providers and reach out to them as needed Health Concerns: Mood stability and behaviors Sobriety Seizure Disorder Cellulitis Plan of Treatment: Follow up with your PCP, psychiatric provider and other outpatient providers regarding above concerns Take medications as prescribed Assessment: Risk assessment at time of discharge:? Patient was interviewed prior to discharge and found to be fully oriented and without any SI or HI. Patient has insight and demonstrates good judgment in terms of wanting to pursue treatment. Patient is not in imminent risk of harm to self or others and has a safety plan that includes presenting to the closest ER or calling 911 if feeling unsafe.? Patient has been observed closely by nursing and unit staff throughout admission; patient has not engaged in any behaviors that suggest dangerousness to self or others and has demonstrated appropriate behaviors and impulse control Discharge Date/Time: 08/01/22 14:20
[2022-08-01] MEDS: Naloxone HCl Nasal TAKE HOME 4 MG SPRAY NOSTRILALT (14:02)
== END 2022-08-01 14:20 | disposition home or self-care (01) | DRG 885 ==
LOC: HO.ED 23:53 → HO.PM5 07-25 00:27
PROVIDERS: Physician Assistant; Admitting Provider Psychiatry & Neurology Psychiatry; Emergency Provider Internal Medicine; Visit Provider Psychiatry & Neurology Psychiatry
DX: F31.32 Bipolar disorder, current episode depressed, moderate (principal); R45.851 Suicidal ideations; F11.20 Opioid dependence, uncomplicated; F43.10 Post-traumatic stress disorder, unspecified; F17.210 Nicotine dependence, cigarettes, uncomplicated; D69.6 Thrombocytopenia, unspecified; Z20.822 Contact with and (suspected) exposure to COVID-19; Z59.02 Unsheltered homelessness; Z71.6 Tobacco abuse counseling; Z79.899 Other long term (current) drug therapy
CPT/HCPCS: 80053; 80307; 81003; 82077; 85025; 87635; 93005; 99285; Q0163